=== PATIENT | female | born 1985 | race Caucasian/White ===

== ENCOUNTER 2020-05-14 11:40 | Emergency (ER) | payer MEDICAID, SELFPAY ==
[2020-05-14 11:41] VITALS: BP 103/66; PULSE 78; RESP 18; TEMP 36.2; O2SAT 98; BMI 27.3
--- NOTE | 2020-05-14 11:44 | CT_ITS ---
STUDY: CT ABDOMEN AND PELVIS WITHOUT CONTRAST REASON FOR EXAM: Female, 34 years old. Kidney Stone. One-week history of left flank pain and urinary tract infection. RADIATION DOSAGE (If Supplied By Facility): CTDIvol = ( 8.87 ) mGy, DLP = ( 447.60 ) mGycm TECHNIQUE: Transaxial images were obtained from the dome of the diaphragm to the symphysis pubis without oral contrast, and without intravenous contrast. Sagittal and coronal images were reconstructed. Individualized dose optimization techniques were used for this CT. COMPARISON: None. FINDINGS: Minimal degree of increased linear markings at the lung bases suggestive of linear atelectasis. Minimal thickening of the right side of the pericardium. Normal liver. Normal gallbladder and extrahepatic biliary system. Normal spleen. Normal pancreas. Normal bilateral adrenal glands. Normal right kidney. Mild degree of left hydronephrosis and hydroureter due to a 4.4 mm calculus at the left ureteral vesicle junction. Normal visualized stomach. Normal small intestine. Normal colon. The appendix is visualized and appears normal. Normal abdominal aorta. Normal inferior vena cava. Normal retroperitoneum. Normal urinary bladder. IUD is seen within the endometrium. The uterus is retroverted. There is a small umbilical hernia containing fat. Normal osseous structures. CT/Abdomen/Pelvis without Cont IMPRESSION: Mild degree of left hydronephrosis and hydroureter due to a 4.4 mm calculus at the left ureteral vesicle junction. Electronically Signed: Daniel Bernstein MD at 12:50 EDT , Service support ,
[2020-05-14] MEDS: Ondansetron 4 MG/2 ML Vial IV (11:54)
[2020-05-14] MEDS: 0.9% Normal Saline 1,000 ML 250 ML IV (11:55)
[2020-05-14] MEDS: Morphine 4 MG/ML Syringe IV (11:55)
--- NOTE | 2020-05-14 11:56 | ED.VISSUMM ---
- ER Visit Summary Date of Service: 05/14/20 Chief Complaint: Left flank pain History of Present Illness: The patient is a 34 F with no primary care physician. Patient reports she has had dysuria and frequency for approximately 1 week. However, this morning she had the abrupt onset of a left flank pain that she describes as a sharp, aching pain that was 10 out of 10 in severity at worst and currently. Nothing makes this better or worse. She is been nauseated and vomited once with it. No blood in her emesis. No diarrhea. Her last bowel movement was today. No melena or hematochezia. She has a Mirena in place. Physical Examination: Vitals: Stable. Afebrile. General: Well-nourished and well-developed. Head: Normocephalic atraumatic. Neck: Supple, no lymphadenopathy. No JVD. Nontender. Cardiovascular: Regular rate and rhythm. No murmurs. Respiratory: No respiratory distress. Clear to auscultation bilaterally. Abdominal: Soft, nontender, nondistended, normal bowel sounds. No guarding, rebound, or peritoneal signs. Back: Mild left CVA tenderness. Extremities: Nontender, no edema. Skin: Normal color, no rash. Neurologic: Alert and oriented ?3. Cranial nerves II through XII are intact. Normal strength and sensation. Psych: Normal affect. Test Results: Analysis shows 25-50 red blood cells and occult blood. test is negative. Clinical Impression(s) from Imaging Studies Abdomen/Pelvis CT 05/14/20 11:44 IMPRESSION: Mild degree of left hydronephrosis and hydroureter due to a 4.4 mm calculus at the left ureteral vesicle junction. Electronically Signed: Daniel Bernstein MD at 12:50 EDT , Service support , Emergency Department Course and Treatment: Patient had an IV placed. She was given morphine and Zofran IV. She is resting more comfortably. Patient was given a dose of Toradol IV and Flomax p.o. Treatment Plan: Patient will be discharged with naproxen and Zofran. She does not want opiate-based medications at home. She reports that she has to work tomorrow and asked for something to help pass this more quickly. Because of this she is given a prescription for Flomax as well. Instructed to follow-up with Dr. Thorpe in 1 week if not improving. Return to the emergency department for any worsening symptoms. Disposition: To home in improved and stable condition. Impression: 1. Left ureterolithiasis. This note was generated with [employer] dictation software. It may contain incorrect words, spelling, and punctuation that were not noted in review of the chart prior to signing ED Disposition - Plan for ED Patient: Instructions: ED Kidney Stone w/ Colic Prescriptions: Tamsulosin HCl [Flomax] 0.4 mg PO DAILY #7 capsule Prescription Printed Naproxen [Naprosyn] 500 mg PO BID #14 tablet Prescription Printed Oxycodone HCl/Acetaminophen [Percocet 5/325] 1 tablet PO Q6H PRN PRN 3 Days #12 tab PRN Reason: Pain Prescription Printed Ondansetron [Zofran Odt] 4 mg PO Q8H PRN PRN #10 tablet PRN Reason: Nausea Prescription Printed Referrals: Roberto Thorpe MD [STAFF PHYSICIAN] - 1 Week if not improving
[2020-05-14 12:06] LABS: Color, Urine Yellow (Yellow); Glucose, Dipstick Normal (Normal); Ketone-Dipstick Negative (Negative); Leukocyte Esterase-Dipstick 25 /ul (Negative); Nitrite-Dipstick Negative (Negative); Occult Blood-Urine 250 /ul (Negative); Protein-Dipstick Negative (Negative); Specific Gravity, Urine 1.015 (1.002-1.030); Urine Bilirubin Dipstick Negative (Negative); Urine Clarity Sl. Cloudy (Clear); Urine Urobilinogen Normal (Normal)
[2020-05-14 12:14] LABS: Internal QC Validated? YES +Cl - CLEAR BKGD; Pregnancy, Serum, hCG Quali. NEGATIVE Negative
[2020-05-14 12:14] LABS: Bacteria 2+ /hpf (None Seen); Mucous, Urine 2+ /hpf (<or=2+); Red Blood Cells-Urine 25-50 SEEN /hpf (0-5); Squamous Epithelial Cells - UA 0-5 SEEN /hpf (5-10); White Blood Cells 0-5 SEEN /hpf (0-5)
[2020-05-14] MEDS: Ketorolac 15 MG/ML Vial IV (13:38)
[2020-05-14] MEDS: Tamsulosin HCl 0.4 MG Capsule PO (13:46)
== END 2020-05-14 13:49 | disposition home or self-care (01) ==
PROVIDERS: Emergency Provider Emergency Medicine
DX: N13.2 Hydronephrosis with renal and ureteral calculous obstruction (principal)
CPT/HCPCS: 74176; 81001; 84703; 96361; 96374; 96375; 99284; J7030; A4216; J2405

== ENCOUNTER 2020-05-16 13:17 | Emergency (ER) | payer MEDICAID, SELFPAY ==
[2020-05-16 13:19] VITALS: BP 105/66; PULSE 95; RESP 16; TEMP 36.3; O2SAT 100; BMI 26.6
[2020-05-16 13:36] LABS: Mucous, Urine 0 SEEN /hpf (<or=2+)
[2020-05-16 13:51] LABS: Color, Urine Yellow (Yellow); Glucose, Dipstick Normal (Normal); Ketone-Dipstick Negative (Negative); Leukocyte Esterase-Dipstick Negative /ul (Negative); Nitrite-Dipstick Negative (Negative); Occult Blood-Urine 25 /ul (Negative); Protein-Dipstick Negative (Negative); Urine Bilirubin Dipstick Negative (Negative); Urine Clarity Clear (Clear); Urine Urobilinogen Normal (Normal); Urine pH 6.5 (5.0 - 8.0)
[2020-05-16 14:01] LABS: Bacteria 1+ /hpf (None Seen); Red Blood Cells-Urine 0-5 SEEN /hpf (0-5); Squamous Epithelial Cells - UA 0-5 SEEN /hpf (5-10); White Blood Cells 0-5 SEEN /hpf (0-5)
--- NOTE | 2020-05-16 14:11 | ED.VIS.GEN ---
History of Present Illness Chief Complaint: Complaint Informant: Patient Narrative: Patient is a 34-year-old previously healthy female who presents to the emergency department for dysuria, suprapubic pain. She was diagnosed with a kidney stone 2 days prior. She was having left-sided flank pain but this is since improved. She is currently rating her suprapubic discomfort as a 4 out of 10. She has been taking Naprosyn, Percocet and Flomax at home. She has not followed up with urology at this point. She denies any fevers or chills. No nausea vomiting. Denies any vaginal bleeding or discharge. She denies any chance of being and just had a negative test. No change in bowel movements. Patient feels a lot of pressure and feels like she has a urinary tract infection. No hematuria. She states she is urinating very frequently. Past Medical History - Allergies and Home Meds Allergies/Adverse Reactions: Allergies SHRIMP Allergy (Mild, Uncoded 05/16/20 13:18) Swelling, upset stomache Primary Care Physician: Roberto Thorpe MD [STAFF PHYSICIAN] - 1 Day Care Physician,No Primary [Primary Care Provider] - Prior records reviewed: Yes Past Medical History: None Surgical History: no surgical history Smoking Status: Current every day smoker Review of Systems All systems negative except as indicated General: Denies: Chills, Fever, Sweats Eyes: Denies: Visual changes - bilaterally, Diplopia ENT: Denies: Rhinorrhea, Sore throat Cardiovascular: Denies: Chest pain, Palpitations Respiratory: Denies: Dyspnea, Cough, Dyspnea on exertion Gastrointestinal: Reports: Abdominal pain. Denies: Nausea, Vomiting, Diarrhea, Melena, Hematochezia Genitourinary: Reports: Dysuria, Frequency. Denies: Hematuria Musculoskeletal: Denies: Back pain, Extremity Pain Skin: Denies: Rash, Wounds Neurological: Denies: Headache, Weakness, Numbness Physical Exam Vital Signs/Narrative: Vital Signs Temp Pulse Resp BP Pulse Ox 05/16/20 13:19 97.3 F L 95 16 105/66 100 Inital Vital Signs reviewed: Yes General: Well nourished, Well developed, No Acute Distress Head: Normocephalic, Atraumatic Eyes: Perrl, EOMI ENT: Moist mucous membranes, No rhinorrhea Neck: Supple, Nontender Cardiovascular: Regular rate, Regular rhythm, No murmurs Respiratory: No distress, CTA bilaterally, Chest nontender Abdomen: Soft, Nondistended, Normal bowel sounds, Tender - Mild tenderness to deep palpation over suprapubic region. No pain at McBurney's point. No rebound or guarding. Back: Nontender, Normal Inspection. Negative for: CVA tenderness Extremities: Nontender, No edema Skin: Normal color, No rash Neurological: Alert, Oriented x3, Cranial nerves II-XII grossly intact, Normal Strength, Normal Sensation Psychological: Normal affect, Normal Mood Diagnostic/Tx/Re-eval - Medical Decision Making Patient presents to the emergency department for urinary symptoms associated with a kidney stone starting 2 days ago. On arrival to the emergency department she is in no acute distress. Vital signs within normal limits. She has a benign abdominal exam. She only has mild tenderness. No peritoneal signs. Since her pain is actually been improving I do not feel repeat CT is necessary at this time. Will check a urinalysis to evaluate for evidence of infection. Urine did have 1+ bacteria but no significant white blood cell count, nitrites or leukocyte esterase. The fact she does have a known kidney stone we will treat this because of her symptoms. Urine will be sent for culture as well. Patient otherwise resting comfortably is nontoxic appearing. She is benign exam. Do feel she is a candidate for outpatient treatment. We will also place on Pyridium. She is going to follow-up with urology tomorrow. Return precautions are reviewed with her including develop any systemic symptoms or worsening pain. She understands and is agreeable with this plan. ED Disposition - Plan for ED Patient: Disposition: Home or Assisted Living Diagnosis: Kidney stone, UTI (urinary tract infection), Dysuria Instructions: ED Kidney Stone w/ Colic Prescriptions: Cephalexin [Keflex] 500 mg PO Q12 #14 capsule Transmission Status: Received by [facility] Phenazopyridine HCl [Pyridium] 200 mg PO BID PRN PRN #10 tablet PRN Reason: Pain Transmission Status: Received by [facility] Referrals: Care Physician,No Primary [Primary Care Provider] - Roberto Thorpe MD [STAFF PHYSICIAN] - 1 Day
== END 2020-05-16 14:49 | disposition home or self-care (01) ==
PROVIDERS: Emergency Provider Emergency Medicine
DX: N20.0 Calculus of kidney (principal); N39.0 Urinary tract infection, site not specified; F17.200 Nicotine dependence, unspecified, uncomplicated
CPT/HCPCS: 81001; 87086; 87088; 87186; 99282

== ENCOUNTER 2020-06-02 20:25 | Emergency (ER) | payer MEDICAID, SELFPAY ==
[2020-06-02 20:25] VITALS: BP 100/80; PULSE 63; RESP 16; TEMP 36.6; O2SAT 95
[2020-06-02 20:26] VITALS: BP 106/70; PULSE 69; RESP 18; TEMP 36; BMI 28.0
[2020-06-02 20:28] VITALS: BP 100/80; PULSE 63; RESP 16; TEMP 36.6; O2SAT 95
--- NOTE | 2020-06-02 20:47 | CT_ITS ---
STUDY: CT ABDOMEN AND PELVIS WITHOUT CONTRAST REASON FOR EXAM: Female, 34 years old. Kidney Stone RADIATION DOSAGE (If Supplied By Facility): CTDIvol = ( 10.27 ) mGy, DLP = ( 546.40 ) mGycm TECHNIQUE: Transaxial images were obtained from the dome of the diaphragm to the symphysis pubis without oral contrast, and without intravenous contrast. Sagittal and coronal images were reconstructed. Individualized dose optimization techniques were used for this CT. COMPARISON: 05/14/2020 FINDINGS: There is minor atelectasis within the dependent portion of the lungs.. The visualized portions of the heart are within normal limits. Normal liver. Normal gallbladder and extrahepatic biliary system. Normal spleen. Normal pancreas. Normal bilateral adrenal glands. Normal right kidney. Normal left kidney. There is a small nonobstructing calculus in the distal left ureter at the ureterovesical junction Normal visualized stomach. Normal small intestine. Normal colon. The appendix is visualized and appears normal. Normal abdominal aorta. Normal inferior vena cava. Normal retroperitoneum. Normal urinary bladder. IUD noted within the endometrial canal of the uterus at the level of the uterine fundus Normal abdominal wall. 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 Electronically Signed: Juan Pablo Thomas MD at 21:54 EDT , Service support ,
[2020-06-02 21:01] LABS: Mucous, Urine 0 SEEN /hpf (<or=2+); Red Blood Cells-Urine 0 SEEN /hpf (0-5); Squamous Epithelial Cells - UA 0 SEEN /hpf (5-10); White Blood Cells 0 SEEN /hpf (0-5)
[2020-06-02 21:02] LABS: Basophil# 0.05 X10^3/uL; Basophil% 0.7 % (0-1); Eosinophil# 0.57 X10^3/uL; Eosinophils% 7.5 % (0-5); Hematocrit 40.7 % (37-47); Hemoglobin 13.2 g/dL (12.0-15.0); Lymphocyte % 31.5 % (19-41); Mean Corp Hgb Conc 32.4 g/dL (32-36); Mean Corpuscular Hgb 31.3 pg (27.0-32.0); Mean Corpuscular Volume 96.4 fL (81-99); Mean Platelet Vol. 9.3 fl (6.2-12.0); Monocyte# 0.63 X10^3/uL; Monocyte% 8.3 % (0-10); NRBC Flagged by Analyzer 0 % (0-5); Neutrophil # 3.96 X10^3/uL (2.7-7.7); Neutrophil % 51.7 % (47-70); Platelet Count 308 K/mm3 (150-450); RBC Distribution Width CV 11.9 % (11.6-14.6); RBC Distribution Width SD 42.1 fl (35.1-43.9); Red Blood Count 4.22 M/mm3 (4.2-5.4); White Blood Count 7.6 K/mm3 (4.4-11.0)
[2020-06-02 21:03] LABS: Color, Urine Yellow (Yellow); Glucose, Dipstick Normal (Normal); Ketone-Dipstick Negative (Negative); Leukocyte Esterase-Dipstick Negative /ul (Negative); Nitrite-Dipstick Negative (Negative); Occult Blood-Urine 250 /ul (Negative); Protein-Dipstick Negative (Negative); Specific Gravity, Urine 1.015 (1.002-1.030); Urine Bilirubin Dipstick Negative (Negative); Urine Clarity Clear (Clear); Urine Urobilinogen Normal (Normal)
[2020-06-02 21:10] LABS: Internal QC Validated? YES +Cl - CLEAR BKGD; Pregnancy, Serum, hCG Quali. NEGATIVE Negative
[2020-06-02] MEDS: 0.9% Normal Saline 1,000 ML 250 ML IV (21:10)
--- NOTE | 2020-06-02 21:10 | ED.VIS.GEN ---
History of Present Illness Chief Complaint: Complaint Informant: Patient Onset: Weeks Maximum Severity: Mild Narrative: Patient presents with left flank pain that she is had on and off for weeks, she was seen in the emergency department number of weeks ago diagnosed with kidney stone on CT was told to follow-up with urology apparently she did not follow-up her symptoms apparently reoccurred she was seen again started on antibiotics with follow-up with urology she did not follow-up she indicates she felt better than today she had recurrence of her symptoms she went to urgent care center told her to come here, She is having the similar symptoms no fever no cough she reports some urinary frequency left flank pain, she indicates she has a Mirena ring this been in place for 4 years no problems or complications with that she wants to make absolutely sure this is the exact same process that it was the other day when she was diagnosed with kidney stone, she presents with the same symptoms Past Medical History - Allergies and Home Meds Allergies/Adverse Reactions: Allergies SHRIMP Allergy (Mild, Uncoded 06/02/20 20:26) Swelling, upset stomache Primary Care Physician: Care Physician,No Primary [Primary Care Provider] - Past Medical History: - Surgical History: no surgical history Smoking Status: Current every day smoker Review of Systems ROS: - Clues as above General: Denies: Chills, Fever, Sweats Eyes: Denies: Visual changes - bilaterally, Diplopia ENT: Denies: Rhinorrhea, Sore throat Cardiovascular: Denies: Chest pain, Palpitations Respiratory: Denies: Dyspnea, Cough, Dyspnea on exertion Gastrointestinal: Denies: Abdominal pain, Nausea, Vomiting, Diarrhea, Melena, Hematochezia Genitourinary: Denies: Dysuria, Hematuria, Frequency Musculoskeletal: Reports: Back pain. Denies: Extremity Pain Skin: Denies: Rash, Wounds Neurological: Denies: Headache, Weakness, Numbness Physical Exam Vital Signs/Narrative: Vital Signs Temp Pulse Resp BP Pulse Ox 06/02/20 20:28 98 F 63 16 100/80 95 06/02/20 20:26 96.8 F L 69 18 106/70 06/02/20 20:25 98 F 63 16 100/80 95 General: Well nourished, Well developed, No Acute Distress Head: Normocephalic, Atraumatic Eyes: Perrl, EOMI ENT: Moist mucous membranes, No rhinorrhea Neck: Supple, Nontender Cardiovascular: Regular rate, Regular rhythm, No murmurs Respiratory: No distress, CTA bilaterally, Chest nontender Abdomen: Soft, Nontender, Nondistended, Normal bowel sounds, - - Very mild pain to the left flank the abdomen soft nontender the rest of exams unremarkable Back: Nontender, Normal Inspection Extremities: Nontender, No edema Skin: Normal color, No rash Neurological: Alert, Oriented x3, Cranial nerves II-XII grossly intact, Normal Strength, Normal Sensation Psychological: Normal affect, Normal Mood Diagnostic/Tx/Re-eval - Medical Decision Making I explained to the patient given that she is having the almost similar symptomatology this is likely due to the fact has not passed a kidney stone she concurs with that assessment I explained to her that then repeating CTs etc. are generally not indicated but she wants that done as she is instead insists on making completely sure that this is the same process I explained to the concept of repeat imaging radiation exposure etc. she understands and wants a CT, she undergo ED evaluation with CT CT scan shows left distal ureter UVJ stone obstructing no other acute abnormalities ED evaluation labs generally unremarkable see those reports, explained the above to the patient at this time I explained her she has had this condition for over 3 weeks she has not follow-up with urology I explained it is critically important that she follows up with urology she'll be started on [place] Naprosyn Flomax and return for symptoms Home stable Final impression left UVJ obstructing kidney stone ED Disposition - Plan for ED Patient: Diagnosis: Left UVJ kidney stone Instructions: ED Kidney Stone w/ Colic Prescriptions: Tamsulosin HCl [Flomax] 0.4 mg PO DAILY #7 capsule Prescription Printed Naproxen [Naprosyn] 500 mg PO BID PRN #20 tablet Prescription Printed Hydrocodone Bitart/Apap 5-325 [[place] 5MG-325MG] 1 tablet PO Q4H PRN PRN 2 Days #10 tab PRN Reason: Pain Prescription Printed Referrals: Care Physician,No Primary [Primary Care Provider] - Roberto Thorpe MD [STAFF PHYSICIAN] -
[2020-06-02 21:12] LABS: Bacteria 2+ /hpf (None Seen)
[2020-06-02] MEDS: morphine 8 MG/ML Syringe IV (21:13)
[2020-06-02] MEDS: Ondansetron 4 MG/2 ML Vial IV (21:14)
[2020-06-02] MEDS: Ketorolac 30 MG/ML Syringe IV (21:14)
[2020-06-02 21:15] LABS: Anion Gap 2 (5-15); BUN 14 mg/dL (7-18); Calcium,Total 8.9 mg/dL (8.5-10.1); Chloride 109 mmol/L (98-107); Creatinine, Serum 0.67 mg/dL (0.55-1.02); EST Glomerular Filtration Rate 108 mL/min (>60); Est Glom Filt Rate - Afr Amer 131 mL/min (>60); Estimated Creatinine Clearance 116.14 ml/min; Glucose 90 mg/dL (74-106); Potassium 3.8 mmol/L (3.5-5.1); Sodium Level 140 mmol/L (136-145)
[2020-06-02 21:28] VITALS: BP 107/74; PULSE 74; RESP 15; TEMP 36.8; O2SAT 98
[2020-06-02 22:00] VITALS: BP 104/70; PULSE 78; RESP 16; TEMP 36.7; O2SAT 97
[2020-06-02] MEDS: HYDROcodone Bitartrate/Apap 5/325 Tablet PO (22:52)
[2020-06-02 22:57] VITALS: BP 110/70; PULSE 78; RESP 16; O2SAT 98
== END 2020-06-02 22:58 | disposition home or self-care (01) ==
LOC: ED 20:57
PROVIDERS: Emergency Provider Emergency Medicine
DX: N20.1 Calculus of ureter (principal); F17.200 Nicotine dependence, unspecified, uncomplicated
CPT/HCPCS: 74176; 80048; 81001; 84703; 85025; 96361; 96374; 96375; 99284; J7030; A4216; J2405

== ENCOUNTER 2020-06-08 10:29 | Day surgery (SDC) | payer MEDICAID, SELFPAY ==
[2020-06-08 11:00] VITALS: BP 95/48; PULSE 76; RESP 14; TEMP 35.8; O2SAT 98; BMI 28.0
[2020-06-08 11:02] LABS: Internal QC Validated? YES +Cl - CLEAR BKGD; Pregnancy, Urine Negative Negative
[2020-06-08] MEDS: Lactated Ringers 1,000 ML 100 ML IV (11:38)
[2020-06-08] MEDS: Ketorolac 30 MG/ML Syringe IV (12:36)
[2020-06-08] MEDS: Cefazolin 2 GM in 0.9% Normal Saline 100 ML IV (14:05)
--- NOTE | 2020-06-08 14:41 | PCM.OPRPT ---
Problem List (1) Left ureteral calculus Status: Acute Report of Operation Date of Procedure: 06/08/20 Pre-Operative Diagnosis: left ureteral calculus Post-Operative Diagnosis: same Surgery/Procedure Performed:: Cystoscopy, left retrograde pyelogram, left ureteroscopy, laser lithotripsy, stone basket extraction, left ureteral stent insertion Type of Anesthesia:: General Specimen's removed: Stone fragments Description of Procedure: Patient is a 34-year-old female with left flank pain identified as having a left ureteral calculus on CT scan who now presents for definitive intervention. Informed consent was obtained. She was taken to the operating room and placed on the operating room table. Anesthesia monitored the head, neck, airway, IV access and vital signs throughout the case. Once anesthesia was appropriately administered the patient was placed into dorsal lithotomy position was prepped and draped in usual sterile fashion. A cystourethroscopy was performed through the urethra under direct visualization. The bladder mucosa and urethral mucosa were normal with no evidence of growth, erythema or ulceration. The left ureteral orifice was identified and intubated with a Pollack catheter. A retrograde pyelogram was performed under fluoroscopic visualization revealing the calculus in the distal left ureter. A 0.035 Glidewire was then passed into the renal pelvis through the left ureter without difficulty. A semirigid ureteroscope was then used to intubate the left ureter with the help of a 0.025 Glidewire. The stone was identified and broken into small fragments using the holmium laser 270 ?m fiber. Some of the larger fragments were grasped with a basket and removed, and sent for evaluation. The smaller pieces passed easily into the urinary bladder. Using the safety wire, a 6 English 26 cm double-J stent was then passed over the Glidewire with good curling in the renal pelvis and the urinary bladder. The patient's bladder was emptied and the case was terminated. The patient tolerated the procedure well without complication and she was taken to the recovery room in good condition. Grafts/Implants Used: 6 x 26 JJ stent - Complications None - Admit VTE Documentation VTE Present on Admission: Yes VTE Mechan Device Prophylaxis: SCD's VTE Pharm Prophylaxis ordered?: No Reason prophylaxis not ordered:: Treatment Not Indicated
--- NOTE | 2020-06-08 14:45 | PCM.DC.URO ---
Discharge Diet: No Restrictions Discharge Activity: May not drive while taking narcotic pain medications. May resume sexual activity in: No Restrictions Call your doctor if you observe: Fever of 101 or Higher, Inability to urinate, Inability to have a bowel movement, Calf discomfort, Uncontrolled pain Allergies/Adverse Reactions: Allergies hydrocodone [From [place]] Adverse Reaction (Verified 06/07/20 09:02) Nausea SHRIMP Allergy (Mild, Uncoded 06/07/20 09:01) Swelling, upset stomache Medications to take at Discharge RX: Hydrocodone Bitart/Apap 5-325 [[place] 5/325] 1 tablet PO Q6H PRN PRN 06/07/20 RX: Naproxen [Naprosyn] 500 mg PO BID PRN PRN 06/07/20 Cephalexin [Keflex] 500 mg PO Q12 3 Days #6 capsule 06/08/20 Phenazopyridine HCl [Pyridium] 200 mg PO TID PRN PRN 7 Days #30 tablet 06/08/20 The following prescriptions were given: Cephalexin [Keflex] 500 mg PO Q12 3 Days #6 capsule Transmission Status: Pending to [facility] Phenazopyridine HCl [Pyridium] 200 mg PO TID PRN PRN 7 Days #30 tablet PRN Reason: Bladder Spasms Transmission Status: Pending to [facility] Primary Care Physician: Care Physician,No Primary [Primary Care Provider] - Test Results: Test results from this visit will be discussed in further detail at your follow-up appointment, if applicable. Please Follow Up With: Karina Rivera MD When: call office for appt for stent removal Proposed Discharge Date: 06/08/20
[2020-06-08 14:54] VITALS: BP 95/48; BP 98/84; PULSE 71; RESP 16; TEMP 36.8; O2SAT 99
--- NOTE | 2020-06-08 14:58 | CALC_PTH ---
PATIENT: ROSE MARIE MORSE LOC: [facility] [place] U#:[id number] AGE/SX: 34/F ROOM: RE06/08/[address]: Dr. Karina Rivera MD : 1985 BED: DIS: 06/08/2020 SPEC #: [id number] RECD: 06/09/20 12:00 STATUS: ULISSES SHEMAR #: [id number] GIULIANA: 06/08/20 14:[address]: Karina Rivera DEPT: SURGICAL PATHOLOGY RECD BY: Toya Magaña ENTERED: 06/10/20 08:32 SP TYPE: Calculi OTHR DR: No Primary Care Phys Tissues: CALCULI Procedures: Surgery Specimen Level I HEADER OPERATION: Not noted PRE-OP DIAGNOSIS: Kidney stone TISSUE SUBMITTED: Kidney stone for analysis GROSS DIAGNOSIS Kidney stone for analysis, removal: Unremarkable calculi (gross diagnosis only). AM:tiara 06/10/20 COMMENT The calculus is submitted in its entirety for chemical stone analysis. The results from this study will be reported separately. GROSS DESCRIPTION Received without fixative labeled with the patient's name and designated kidney stone for analysis. The specimen consists of two irregular fragments of light willis calculi measuring in aggregate 0.2 x <0.1 x <0.1 cm. The calculi are submitted in their entirety for chemical stone analysis. / AM:tiara 06/09/20 CPT: 15180
[2020-06-08 14:59] VITALS: BP 101/62; BP 95/48; PULSE 62; RESP 18; O2SAT 100
[2020-06-08 15:04] VITALS: BP 94/67; BP 95/48; PULSE 56; RESP 18; O2SAT 99
[2020-06-08 15:25] VITALS: BP 95/48; BP 97/64; PULSE 52; RESP 18; TEMP 36.4; O2SAT 100
[2020-06-08 16:12] VITALS: BP 124/91; BP 95/48; PULSE 71; RESP 16; TEMP 36.8; O2SAT 100
== END 2020-06-08 16:14 | disposition home or self-care (01) ==
LOC: SDC 10:30 → AC 10:31
PROVIDERS: Anesthesiology; Referring Provider Urology; Visit Provider Urology
PROC: 0TJ98ZZ Inspection of Ureter, Via Natural or Artificial Opening Endoscopic (ICD-10-PCS; CPT 52352; principal; 2020-06-08 11:55)
DX: N20.1 Calculus of ureter (principal); N39.0 Urinary tract infection, site not specified; B96.20 Unspecified Escherichia coli [E. coli] as the cause of diseases classified elsewhere; F17.200 Nicotine dependence, unspecified, uncomplicated; Z20.822 Contact with and (suspected) exposure to COVID-19
CPT/HCPCS: 52356; 76000; 81025; 82360; 87426; 88300; C9803; J7120; A4216; C2617; J2405

== ENCOUNTER 2020-06-10 18:19 | Emergency (ER) | payer MEDICAID, SELFPAY ==
[2020-06-10 18:20] VITALS: BP 126/97; PULSE 82; RESP 15; TEMP 36.4; O2SAT 97; BMI 28.1
--- NOTE | 2020-06-10 18:42 | CT_ITS ---
INDICATION: Kidney Stone EXAMINATION: CT Abdomen And Pelvis W/O Contrast Injection TECHNIQUE: Helically acquired images were obtained of the abdomen and pelvis without the use of IV contrast. A radiation dose optimization technique was used for this scan. Oral contrast: None. COMPARISON: 06/02/2020 FINDINGS: Evaluation of the solid organs and vascular structures is limited without intravenous contrast. Visualized lung bases: Bibasilar atelectasis. Liver: Scattered subcentimeter hypodensities are too small characterize. Gallbladder: Unremarkable Spleen: Unremarkable Pancreas: Unremarkable Adrenal Glands: Unremarkable Kidneys: Residual punctate nonobstructing stone seen in the distal left ureter. There is mild left hydroureteronephrosis. Vasculature: Unremarkable GI Tract: Unremarkable Lymphadenopathy: None Peritoneum: There is free fluid in the pelvis extending to the left ovary. Bladder: The bladder wall is mildly thickened with surrounding fat stranding. Reproductive organs: IUD in place. Bones/Soft tissues: No suspicious osseous or soft tissue lesions. 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 CT/Abdomen/Pelvis without Cont IMPRESSION: New free fluid in the pelvis extending to the left ovary, likely from a ruptured ovarian cyst. New mild left hydroureteronephrosis with tiny 1 mm residual stone seen in the distal left ureter. The bladder wall is mildly thickened with surrounding inflammation. Correlate with urinalysis for cystitis. Electronically Signed: Cullen Miller MD at 19:56 EDT Tel , Service support ,
[2020-06-10] MEDS: Ketorolac 15 MG/ML Vial IV (18:55)
[2020-06-10] MEDS: Morphine 4 MG/ML Syringe IV ×2 (18:55→22:11)
[2020-06-10] MEDS: Ondansetron 4 MG/2 ML Vial IV (18:55)
[2020-06-10 19:08] LABS: Bacteria 0 SEEN /hpf (None Seen); Mucous, Urine 0 SEEN /hpf (<or=2+); White Blood Cells 0 SEEN /hpf (0-5)
[2020-06-10 19:14] LABS: Color, Urine Yellow (Yellow); Glucose, Dipstick Normal (Normal); Ketone-Dipstick 50 mg/dl (Negative); Leukocyte Esterase-Dipstick 25 /ul (Negative); Nitrite-Dipstick Negative (Negative); Occult Blood-Urine 250 /ul (Negative); Protein-Dipstick 30 mg/dl (Negative); Urine Bilirubin Dipstick Negative (Negative); Urine Clarity Sl. Cloudy (Clear); Urine Urobilinogen Normal (Normal)
[2020-06-10 19:15] LABS: Absolute Lymphocyte Count 2.57 X10^3/uL (0.83-4.51); Absolute Neutrophil Count 8.6 X10^3/uL (2.0-7.7); Basophil# 0.07 X10^3/uL; Basophil% 0.5 % (0-1); Eosinophil# 0.41 X10^3/uL; Eosinophils% 3.2 % (0-5); Hematocrit 39.8 % (37-47); Hemoglobin 13.1 g/dL (12.0-15.0); Lymphocyte # 2.57 X10^3/ul (0.83-4.51); Lymphocyte % 20.2 % (19-41); Mean Corp Hgb Conc 32.9 g/dL (32-36); Mean Corpuscular Hgb 31.3 pg (27.0-32.0); Mean Corpuscular Volume 95.2 fL (81-99); Mean Platelet Vol. 9.6 fl (6.2-12.0); Monocyte# 1.03 X10^3/uL; Monocyte% 8.1 % (0-10); NRBC Flagged by Analyzer 0 % (0-5); Neutrophil # 8.61 X10^3/uL (2.7-7.7); Neutrophil % 67.7 % (47-70); Platelet Count 317 K/mm3 (150-450); RBC Distribution Width SD 41.5 fl (35.1-43.9); Red Blood Count 4.18 M/mm3 (4.2-5.4); White Blood Count 12.7 K/mm3 (4.4-11.0)
[2020-06-10 19:21] LABS: Red Blood Cells-Urine 25-50 SEEN /hpf (0-5); Squamous Epithelial Cells - UA 0-5 SEEN /hpf (5-10)
[2020-06-10 19:26] LABS: Anion Gap 5 (5-15); BUN 12 mg/dL (7-18); BUN/Creat Ratio 16.9 RATIO (10-20); Calcium,Total 8.7 mg/dL (8.5-10.1); Chloride 108 mmol/L (98-107); Creatinine, Serum 0.71 mg/dL (0.55-1.02); EST Glomerular Filtration Rate 100 mL/min (>60); Est Glom Filt Rate - Afr Amer 121 mL/min (>60); Glucose 89 mg/dL (74-106); Potassium 3.7 mmol/L (3.5-5.1); Sodium Level 139 mmol/L (136-145)
--- NOTE | 2020-06-10 20:25 | US_ITS ---
PROCEDURE: ULTRASOUND OF THE FEMALE PELVIS - COMPLETE REASON FOR EXAM: Female, 34 years old. Left lower quadrant pain TECHNIQUE: Transabdominal and Transvaginal TECHNICAL QUALITY: Adequate. COMPARISON: CT of abdomen and pelvis dated JUNE 10, 2020 FINDINGS: The uterus is retroverted and is in a midline position. The uterus measures 7.8 x 6.6 x 4.4 cm. There is no demonstrated myometrial mass. The endometrium measures 3 mm in thickness, and is hyperechoic. IUD is fundal in location and in good position. There is no demonstrated endometrial mass. There is a Nabothian cyst of the cervix. The right ovary is visualized. The right ovary measures 3.0 x 2.5 x 2.1 cm cm. There is no right ovarian cyst or ovarian mass. There is no visualized right adnexal mass or complex lesion. The left ovary is visualized. The left ovary measures 4.1 x 2.6 x 2.8 cm cm. Degenerated left ovarian follicular cyst measures 1.8 cm. There is no visualized left adnexal mass or complex lesion. Normal color vascular flow and Doppler signal is demonstrated in both ovaries. There is a small amount of fluid in the cul-de-sac. Small amount of debris seen in the visualized aspects of the bladder. US/Transvaginal Non- IMPRESSION: 1. 1.8 cm degenerated left ovarian cyst 2. Small amount of free fluid in the cul-de-sac 3. Small amount of debris seen in the visualized aspects of the bladder. Electronically Signed: Jose Burrell MD at 21:35 EDT , Service support ,
--- NOTE | 2020-06-10 20:36 | ED.DCSUM_ITS ---
History of Present Illness Chief Complaint: Flank Pain Informant: Patient Narrative: 34-year-old female with history of renal calculi on the left presenting with left flank pain. She states that she had a stent placed and the stone was removed by Dr. Nelson. she states that she did have some improvement of her pain but now is having worsening left flank pain. She was seen again today and had the stent removed. She has worsening pain and was sent to the ED for evaluation. Patient denies any fever or chills. She does have nausea. She does also have dysuria. She is complaining of left flank pain which is worsening. - Past Medical History (1) Left ureteral calculus Status: Chronic (2) Pleurisy Status: Chronic Past Medical History - Allergies and Home Meds Allergies/Adverse Reactions: Allergies hydrocodone [From [place]] Adverse Reaction (Verified 06/10/20 18:22) Nausea SHRIMP Allergy (Mild, Uncoded 06/10/20 18:22) Swelling, upset stomache Primary Care Physician: Care Physician,No Primary [Primary Care Provider] - Prior records reviewed: Yes Past Medical History: - - Reviewed in problem list Surgical History: no surgical history Lives: Spouse/ Significant Other Smoking Status: Current every day smoker Alcohol: None Drugs: None Review of Systems General: Denies: Chills, Fever, Sweats Eyes: Denies: Visual changes - bilaterally, Diplopia ENT: Denies: Rhinorrhea, Sore throat Cardiovascular: Denies: Chest pain, Palpitations Respiratory: Denies: Dyspnea, Cough, Dyspnea on exertion Gastrointestinal: Reports: Abdominal pain - Left lower abdominal pain, Nausea. Denies: Vomiting, Diarrhea Genitourinary: Reports: Dysuria. Denies: Frequency Musculoskeletal: Reports: Back pain - Left flank pain. Denies: Extremity Pain Skin: Denies: Rash, Wounds Neurological: Denies: Headache, Weakness, Numbness Psych: Denies: Depression, Anxiety, Suicidal thoughts, Suicidal ideations, -, - Physical Exam Vital Signs/Narrative: Vital Signs Temp Pulse Resp BP Pulse Ox 06/10/20 18:20 97.6 F L 82 15 126/97 H 97 General: Well nourished, Acute Distress - Appears to be in pain holding her left flank Head: Normocephalic, Atraumatic Eyes: Perrl, EOMI ENT: Moist mucous membranes, No rhinorrhea Cardiovascular: Regular rate, Regular rhythm Respiratory: No distress, CTA bilaterally Abdomen: Soft, Nondistended, Tender - Left flank and left lower quadrant. Back: CVA tenderness - Left. Negative for: Spinal tenderness Extremities: Nontender, No edema Skin: Normal color, No rash, Diaphoresis. Negative for: Cyanosis Neurological: Alert, Oriented x3, Cranial nerves II-XII grossly intact Psychological: Normal affect, Tearful Diagnostic/Tx/Re-eval Clinical Impression(s) from Imaging Studies Abdomen/Pelvis CT 06/10/20 18:42 IMPRESSION: New free fluid in the pelvis extending to the left ovary, likely from a ruptured ovarian cyst. New mild left hydroureteronephrosis with tiny 1 mm residual stone seen in the distal left ureter. The bladder wall is mildly thickened with surrounding inflammation. Correlate with urinalysis for cystitis. Electronically Signed: Cullen Miller MD at 19:56 EDT Tel , Service support , Laboratory Data 06/10/20 06/10/20 06/10/20 18:58 18:58 Unknown WBC 12.7 H RBC 4.18 L Hgb 13.1 Hct 39.8 MCV 95.2 MCH 31.3 MCHC 32.9 RDW Std Deviation 41.5 RDW Coeff of Dimas 12.0 Plt Count 317 MPV 9.6 Immature Gran % (Auto) 0.300 Neut % (Auto) 67.7 Lymph % (Auto) 20.2 Richardson % (Auto) 8.1 Eos % (Auto) 3.2 Baso % (Auto) 0.5 Absolute Neuts (auto) 8.6 H Absolute Lymphs (auto) 2.57 Nucleated RBC % 0 Sodium 139 Potassium 3.7 Chloride 108 H Carbon Dioxide 26.0 Anion Gap 5 BUN 12 Creatinine 0.71 Estim Creat Clear Calc 109.60 Est GFR (MDRD) Af Amer 121 Est GFR (MDRD) Non-Af 100 BUN/Creatinine Ratio 16.9 Glucose 89 Calcium 8.7 Urine Color Yellow Urine Clarity Sl. Cloudy Urine pH 8.0 Ur Specific [place] 1.010 Urine Protein 30 H Urine Glucose (UA) Normal Urine Ketones 50 H Urine Occult Blood 250 H Urine Nitrite Negative Urine Bilirubin Negative Urine Urobilinogen Normal Ur Leukocyte Esterase 25 H Urine RBC 25-50 SEEN Urine WBC 0 SEEN Ur Squamous Epith Cells 0-5 SEEN Urine Bacteria 0 SEEN Urine Mucus 0 SEEN - Medical Decision Making Patient seen and evaluated on arrival for left flank pain. She has history of renal calculi stent placement and removal. She is given Toradol, morphine, Zofran and has improvement of her pain. Repeat lab work shows a slight leukocytosis but otherwise her H&H stable. Renal function electrolytes are normal. Patient had negative test 2 days ago. Urinalysis has hematuria but no infection. CT of the abdomen pelvis without contrast shows residual 1 mm stone in the distal ureter with some left hydronephrosis. The bladder also appears inflamed. This is likely from her stent given that she does not have a UTI or obstructing stone. Patient also has findings on her CT that show fluid in the pelvis extending to the left ovary presumed to be ruptured ovarian cyst. After discussing with the patient she would like to have a transvaginal ultrasound. This was ordered. Transvaginal ultrasound shows a 1.8 cm degenerated left ovarian cyst as well as some free fluid in the cul-de-sac. There is no ovarian torsion. There appears to be some debris in th e bladder. Patient was discussed with urology and she wants the patient to be started on Flomax and follow-up in the office tomorrow. This was discussed with the patient. She was given the option to stay for pain control and wishes to go home. She states she has Percocet at home. Patient given precautions. Impression: 1. Left ureteral stone nonobstructive 2. Left ovarian cyst ED Disposition - Plan for ED Patient: Disposition: Home or Assisted Living Instructions: ED Ovarian Cyst, ED Kidney Stone w/ Colic Prescriptions: Tamsulosin HCl [Flomax] 0.4 mg PO DAILY #7 capsule Transmission Status: Received by [email or web address][id number] Referrals: Care Physician,No Primary [Primary Care Provider] -
[2020-06-10 22:01] VITALS: BP 93/62; PULSE 65; RESP 16; O2SAT 96
[2020-06-10] MEDS: Tamsulosin HCl 0.4 MG Capsule PO (22:12)
[2020-06-10 22:18] VITALS: BP 103/71
== END 2020-06-10 22:18 | disposition home or self-care (01) ==
PROVIDERS: Emergency Provider Student in an Organized Health Care Education/Training Program
DX: N13.2 Hydronephrosis with renal and ureteral calculous obstruction (principal); N83.202 Unspecified ovarian cyst, left side; F17.200 Nicotine dependence, unspecified, uncomplicated; Z87.442 Personal history of urinary calculi
CPT/HCPCS: 74176; 76830; 80048; 81001; 85025; 93976; 96374; 96375; 96376; 99282; A4216; J2405

== ENCOUNTER 2021-09-15 14:24 | Emergency (ER) | payer MEDICAID, SELFPAY ==
[2021-09-15 14:25] VITALS: BP 108/69; PULSE 76; RESP 16; TEMP 36.6; O2SAT 100; BMI 28.2
--- NOTE | 2021-09-15 15:43 | EKG12_ITS ---
Test Reason : dizziness Blood Pressure : / mmHG Vent. Rate : 065 BPM Atrial Rate : 065 BPM P-R Int : 138 ms QRS Dur : 094 ms QT Int : 412 ms P-R-T Axes : 053 058 057 degrees QTc Int : 428 ms Normal sinus rhythm with sinus arrhythmia Normal ECG Confirmed by ACE CARBAJAL, MEAGHAN ([id number]), visual effects editor SONIYA MUKHERJEE ([id number]) on 09/19/2021 11:25:17 AM Referred By: Columba Confirmed By:SUMAYA BELLO MD
--- NOTE | 2021-09-15 15:50 | EX.ED.DYSGE1 ---
HPI <ATILIO Eldridge - Last Filed: 09/15/21 17:28> History of Present Illness Chief Complaint: Dizziness Narrative Narrative: 35-year-old female with no significant medical problems presents the emergency department with 2 separate near syncopal episodes in the last week. 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 Patient had another 1 today, and is here for evaluation. She denies any cough, fever, chills peer denies any chest pain, denies any recent vacations or trips. Denies any history of blood clots or legs or lungs PFSH <ATILIO Eldridge - Last Filed: 09/15/21 17:28> PFSH Allergy/AdvReac Type Severity Reaction Status Date / Time hydrocodone [From [place]] AdvReac Nausea Verified 06/10/20 18:22 SHRIMP Allergy Mild Swelling, Uncoded 06/10/20 18:22 upset stomache Social History (System 10/07/18 @ 15:52 by Beatriz Serrato) Smoking Status: Current every day smoker tobacco type: cigarettes and e-cigarettes ROS <ATILIO Eldridge - Last Filed: 09/15/21 17:28> ROS ED ROS Narrative Constitutional: Negative for fever, chills, weight loss, weakness. Positive for diaphoresis, weakness Eyes: Negative for vision loss, vision change, double vision ENT: Negative for any sore throat, ear pain, congestion Cardiovascular: Negative for any chest pain, palpitations. Positive for chest tightness Respiratory: Negative for any cough, sputum production, hemoptysis, dyspnea, dyspnea on exertion, orthopnea Gastrointestinal: Negative for any abdominal pain, vomiting, diarrhea, constipation, blood in stool, blood in vomit. Positive for nausea : Negative for any urinary frequency, dysuria, retention, blood in urine Muscle skeletal: Negative for any muscle joint pain, stiffness, myalgias, arthralgias, neck pain, back pain Neurological: Negative for any headache, numbness or tingling, dizziness. Positive for near syncope Skin: Negative for any rashes, lumps, itching, abrasions, lacerations Psychiatric: Negative for any depression, anxiety, stress, suicidal ideation, homicidal ideation Hematologic: Negative for any easy bruising, excessive bruising, easy bleeding Allergies: Negative for any eczema, hives, rash EXAM <ATILIO Eldridge - Last Filed: 09/15/21 17:28> Physical Exam Narrative Exam Narrative: Vital signs reviewed. HEET: Head normocephalic atraumatic, TMs clear bilaterally. Posterior pharynx is clear, moist mucous membranes. Nares clear bilaterally. Neck: Supple with no lymphadenopathy or tenderness. No signs of meningismus, negative jolt sign. Cardiac: Regular rate and rhythm no murmurs gallops or rubs, equal peripheral pulses bilaterally. Respiratory: Lungs clear to auscultation bilaterally. No chest tenderness. Abdomen: Soft, nontender, nondistended. No abdominal bruit or pulsatile masses. No hepatosplenomegaly Extremities: No peripheral edema, no signs of gross trauma or deformity. Active full range of motion of all extremities. Neuro: Cranial nerves II through XII intact, no focal neurological deficits. Skin: Clean dry and intact with no rash, purpura, petechiae, vesicles or pustules. Backs/flank: No CVA tenderness, no midline spinal tenderness, no deformity. Psych: Normal mood and affect. No SI, HI or acute psychosis. Const Vital Signs: 09/15/21 14:25 09/15/21 16:12 09/15/21 16:19 Temperature 97.9 F Temperature Source Temporal Pulse Rate 76 Pulse Rate [Lying] 60 Pulse Rate [Sitting (for 1 minute prior to obtaining)] 68 Pulse Rate [Standing (for 1 minute prior to obtaining)] 84 Respiratory Rate 16 Respiratory Effort Short of Breath Blood Pressure 108/69 Blood Pressure [Lying] 91/54 L Blood Pressure [Sitting (for 1 minute prior to obtaining)] 99/68 Blood Pressure [Standing (for 1 minute prior to obtaining)] 98/64 Blood Pressure Mean 82 Blood Pressure Mean [Lying] 66 Blood Pressure Mean [Sitting (for 1 minute prior to obtaining)] 78 Blood Pressure Mean [Standing (for 1 minute prior to obtaining)] 75 Pulse Ox 100 Oxygen Delivery Method Room Air <Dr. Ra Ward MD - Last Filed: 09/15/21 17:38> Physical Exam Const Vital Signs: 09/15/21 14:25 09/15/21 16:12 09/15/21 16:19 Temperature 97.9 F Temperature Source Temporal Pulse Rate 76 Pulse Rate [Lying] 60 Pulse Rate [Sitting (for 1 minute prior to obtaining)] 68 Pulse Rate [Standing (for 1 minute prior to obtaining)] 84 Respiratory Rate 16 Respiratory Effort Short of Breath Blood Pressure 108/69 Blood Pressure [Lying] 91/54 L Blood Pressure [Sitting (for 1 minute prior to obtaining)] 99/68 Blood Pressure [Standing (for 1 minute prior to obtaining)] 98/64 Blood Pressure Mean 82 Blood Pressure Mean [Lying] 66 Blood Pressure Mean [Sitting (for 1 minute prior to obtaining)] 78 Blood Pressure Mean [Standing (for 1 minute prior to obtaining)] 75 Pulse Ox 100 Oxygen Delivery Method Room Air [facility] <ATILIO Eldridge - Last Filed: 09/15/21 17:28> [facility] Lab Data Labs: Laboratory Results - last 24 hr 09/15/21 09/15/21 09/15/21 16:11 16:11 16:11 WBC 9.4 RBC 4.38 Hgb 13.4 Hct 39.9 MCV 91.1 MCH 30.6 MCHC 33.6 RDW Std Deviation 40.5 RDW Coeff of Dimas 12.1 Plt Count 277 MPV 9.4 Immature Gran % (Auto) 0.500 Neut % (Auto) 76.5 H Lymph % (Auto) 16.8 L [place] % (Auto) 5.4 Eos % (Auto) 0.4 Baso % (Auto) 0.4 Absolute Neuts (auto) 7.2 Absolute Lymphs (auto) 1.58 Nucleated RBC % 0 Sodium 139 Potassium 3.6 Chloride 107 Carbon Dioxide 28.0 Anion Gap 4 L BUN 10 Creatinine 0.53 L Estim Creat Clear Calc 140.01 Est GFR (MDRD) Af Amer 169 Est GFR (MDRD) Non-Af 140 BUN/Creatinine Ratio 18.9 Glucose 99 Calcium 8.8 Troponin I High Sens < 3 L Urine Color Yellow Urine Clarity Sl. Cloudy Urine pH 5.0 Ur Specific [place] 1.025 Urine Protein Negative Urine Glucose (UA) Normal Urine Ketones Negative Urine Occult Blood 25 H Urine Nitrite Negative Urine Bilirubin Negative Urine Urobilinogen Normal Ur Leukocyte Esterase Negative Urine RBC 0 SEEN Urine WBC 0-5 SEEN Ur Squamous Epith Cells 0-5 SEEN Urine Bacteria 2+ Urine Mucus 0 SEEN Urine Test Negative Radiography Diagnostic Testing: Clinical Impression(s) from Imaging Studies Chest X-Ray 09/15/21 16:23 IMPRESSION: 1. Normal x-ray examination of the chest. 2. No pneumonia, pneumonitis, bronchitis, or pulmonary mass lesions. 3. No hyperinflation. Electronically Signed: Xavier Barrera MD at 16:39 EDT , EKG Normal sinus rhythm with sinus arrhythmia: Attestation: I personally reviewed and interpreted this EKG as follows: Interpretation: Sinus Rhythm Comments: Sinus rhythm with 65 bpm, IN interval 138 ms, QRS duration 94 ms, no acute ST elevation, no acute infarct noted. Treatment and Re-Evaluation Narrative: Patient appears well, patient appears nontoxic, vital signs are stable. Patient presents the emergency department with 2 episodes of near syncope over the last week. Patient's physical exam was grossly unremarkable, patient appears well and in no distress at this time. Patient did receive a cardiac work-up, patient had normal chest x-ray interpreted by ER physician. Patient's laboratory studies show normal CBC, normal chemistry. Patient's high-sensitivity troponin was negative. Patient's urinalysis was negative for any , did show +2 bacteria however there is no nitrates, no leukocyte esterase, I do not believe this is a urinary tract infection. Patient will need to follow-up with cardiology for this vasovagal near syncope. At this time there is no indication of any ACS, [place], infectious symptoms. Patient is happy with plan of care, patient structured to maintain hydration. She is stable for discharge. Instructed return for worsening symptoms <Dr. Ra Ward MD - Last Filed: 09/15/21 17:38> [facility] Narrative Medical decision making narrative: I have personally performed a face to face assessment of the patient and have reviewed the CORBIN Note. I performed a substantive portion of the visit including all aspects of the following. My victor findings include: History is remarkable for near sickle cell today. This occurred while sitting. She was sitting for 30 minutes performing her duties at work. She had episode last week as well. She was standing at that time. Prior to to these 2 episodes she had several episodes during her . She never informed her doctor. She does not have history of POTS. She denies black or maroon-colored stool. She denies constitutional symptoms. She states her vision did seem dark. She was nauseous and diaphoretic. Apparently people at work and commented she looked pale. She states last week she vomited. When she was she had single episodes where she had loss of consciousness. Exam is unremarkable. HEENT exam is normal. Heart is regular without murmur, gallop or rub. Lungs are clear to auscultation. Abdomen is benign. Neuro exam is nonfocal. Medical Decision Making patient's history and physical consistent with vasovagal near and complete syncope. Patient's states she does put a lot of salt on her food. They both commented that she does eat well and does drink plenty of fluids. She presently had no symptoms. Suspect this represents vasovagal syncopal episode. If she has recurrent episode she will need referral to cardiology for table tilt test. Other additions or changes: None Lab Data Attestation: I reviewed the patient's lab results. Lab results narrative: CBC, H&H are unremarkable. Basic metabolic panel is unremarkable. Troponin is normal. UA reveals bacteria without pyuria and patient is asymptomatic. This would not indicate a urinary tract infection Labs: Laboratory Results - last 24 hr 09/15/21 09/15/21 09/15/21 16:11 16:11 16:11 WBC 9.4 RBC 4.38 Hgb 13.4 Hct 39.9 MCV 91.1 MCH 30.6 MCHC 33.6 RDW Std Deviation 40.5 RDW Coeff of Dimas 12.1 Plt Count 277 MPV 9.4 Immature Gran % (Auto) 0.500 Neut % (Auto) 76.5 H Lymph % (Auto) 16.8 L [place] % (Auto) 5.4 Eos % (Auto) 0.4 Baso % (Auto) 0.4 Absolute Neuts (auto) 7.2 Absolute Lymphs (auto) 1.58 Nucleated RBC % 0 Sodium 139 Potassium 3.6 Chloride 107 Carbon Dioxide 28.0 Anion Gap 4 L BUN 10 Creatinine 0.53 L Estim Creat Clear Calc 140.01 Est GFR (MDRD) Af Amer 169 Est GFR (MDRD) Non-Af 140 BUN/Creatinine Ratio 18.9 Glucose 99 Calcium 8.8 Troponin I High Sens < 3 L Urine Color Yellow Urine Clarity Sl. Cloudy Urine pH 5.0 Ur Specific [place] 1.025 Urine Protein Negative Urine Glucose (UA) Normal Urine Ketones Negative Urine Occult Blood 25 H Urine Nitrite Negative Urine Bilirubin Negative Urine Urobilinogen Normal Ur Leukocyte Esterase Negative Urine RBC 0 SEEN Urine WBC 0-5 SEEN Ur Squamous Epith Cells 0-5 SEEN Urine Bacteria 2+ Urine Mucus 0 SEEN Urine Test Negative Radiography Diagnostic Testing: Clinical Impression(s) from Imaging Studies Chest X-Ray 09/15/21 16:23 IMPRESSION: 1. Normal x-ray examination of the chest. 2. No pneumonia, pneumonitis, bronchitis, or pulmonary mass lesions. 3. No hyperinflation. Electronically Signed: Xavier Barrera MD at 16:39 EDT , Discharge Plan Triage Chief Complaint: Dizziness ED Midlevel Provider: Ramesh Saldana ED Provider: Ra Ward Dx/Rx/DC Orders Clinical Impression: Postural dizziness with near syncope Instructions: Causes of Syncope, Dizziness Fainting Poss Causes, ED Dizziness or Syncope ... Primary Care Provider: Care Physician,No Primary Referrals: Harini Sanchez MD [Med Staff - Active Staff] - Care Physician,No Primary [Primary Care Provider] - Activity Restrictions/Additional Instructions: Please follow-up with cardiology regarding this symptoms. Print Language: Montserratian Disposition Disposition: Home, Self Care
[2021-09-15 16:12] VITALS: BP 91/54; BP 98/64; BP 99/68; PULSE 60; PULSE 68; PULSE 84
[2021-09-15] MEDS: 0.9% Normal Saline 1,000 ML 1000 ML IV (16:18)
[2021-09-15 16:22] LABS: Mucous, Urine 0 SEEN /hpf (<or=2+); Red Blood Cells-Urine 0 SEEN /hpf (0-5)
--- NOTE | 2021-09-15 16:23 | RAD_ITS ---
STUDY: PORTABLE AP UPRIGHT CHEST X-RAY OF 1622 HOURS ON 09/15/2021 REASON FOR EXAM: 35-year-old female with shortness of breath. TECHNIQUE: A single view portable AP upright chest x-ray was performed per protocol. COMPARISON: 02/22/2013. FINDINGS: Normal osseous structures. The heart, sherrie, diaphragm, and lungs have normal appearance. No infiltrates, atelectasis, effusion. No pneumonia, pneumonitis, or bronchitis. No hyperinflation. No subdiaphragmatic abnormalities. No significant interval change since that previous study of 02/22/2013. RAD/Chest 1 View (Portable) IMPRESSION: 1. Normal x-ray examination of the chest. 2. No pneumonia, pneumonitis, bronchitis, or pulmonary mass lesions. 3. No hyperinflation. Electronically Signed: Xavier Barrera MD at 16:39 EDT ,
[2021-09-15 16:31] LABS: Color, Urine Yellow (Yellow); Glucose, Dipstick Normal (Normal); Ketone-Dipstick Negative (Negative); Leukocyte Esterase-Dipstick Negative /ul (Negative); Nitrite-Dipstick Negative (Negative); Occult Blood-Urine 25 /ul (Negative); Protein-Dipstick Negative (Negative); Specific Gravity, Urine 1.025 (1.002-1.030); Urine Bilirubin Dipstick Negative (Negative); Urine Clarity Sl. Cloudy (Clear); Urine Urobilinogen Normal (Normal)
[2021-09-15 16:37] LABS: Absolute Lymphocyte Count 1.58 X10^3/uL (0.83-4.51); Absolute Neutrophil Count 7.2 X10^3/uL (2.0-7.7); Basophil# 0.04 X10^3/uL; Basophil% 0.4 % (0-1); Eosinophil# 0.04 X10^3/uL; Eosinophils% 0.4 % (0-5); Hematocrit 39.9 % (37-47); Hemoglobin 13.4 g/dL (12.0-15.0); Lymphocyte # 1.58 X10^3/ul (0.83-4.51); Lymphocyte % 16.8 % (19-41); Mean Corp Hgb Conc 33.6 g/dL (32-36); Mean Corpuscular Hgb 30.6 pg (27.0-32.0); Mean Corpuscular Volume 91.1 fL (81-99); Mean Platelet Vol. 9.4 fl (6.2-12.0); Monocyte# 0.51 X10^3/uL; Monocyte% 5.4 % (0-10); NRBC Flagged by Analyzer 0 % (0-5); Neutrophil % 76.5 % (47-70); Platelet Count 277 K/mm3 (150-450); RBC Distribution Width CV 12.1 % (11.6-14.6); RBC Distribution Width SD 40.5 fl (35.1-43.9); Red Blood Count 4.38 M/mm3 (4.2-5.4); White Blood Count 9.4 K/mm3 (4.4-11.0)
[2021-09-15 16:40] LABS: Bacteria 2+ /hpf (None Seen); Squamous Epithelial Cells - UA 0-5 SEEN /hpf (5-10); White Blood Cells 0-5 SEEN /hpf (0-5)
[2021-09-15 16:51] LABS: Anion Gap 4 (5-15); BUN 10 mg/dL (7-18); BUN/Creat Ratio 18.9 RATIO (10-20); Calcium,Total 8.8 mg/dL (8.5-10.1); Chloride 107 mmol/L (98-107); Creatinine, Serum 0.53 mg/dL (0.55-1.02); EST Glomerular Filtration Rate 140 mL/min (>60); Est Glom Filt Rate - Afr Amer 169 mL/min (>60); Estimated Creatinine Clearance 140.01 ml/min; Glucose 99 mg/dL (74-106); Potassium 3.6 mmol/L (3.5-5.1); Sodium Level 139 mmol/L (136-145); Troponin-I HS < 3 pg/mL (3.0-54.0)
[2021-09-15 17:07] LABS: Internal QC Validated? YES +Cl - CLEAR BKGD; Pregnancy, Urine Negative Negative
[2021-09-15 18:17] VITALS: BP 107/62
== END 2021-09-15 18:18 | disposition home or self-care (01) ==
PROVIDERS: Nurse Practitioner; Emergency Provider Emergency Medicine; Visit Provider Emergency Medicine
DX: R42 Dizziness and giddiness (principal); R55 Syncope and collapse; F17.210 Nicotine dependence, cigarettes, uncomplicated; F17.290 Nicotine dependence, other tobacco product, uncomplicated
CPT/HCPCS: 71045; 80048; 81001; 81025; 84484; 85025; 93005; 96360; 99284; J7030; A4216

== ENCOUNTER 2022-01-30 18:57 | Emergency (ER) | payer MEDICAID, SELFPAY ==
[2022-01-30 18:57] VITALS: BP 111/75; PULSE 67; RESP 18; TEMP 36.4; O2SAT 100; BMI 28.6
--- NOTE | 2022-01-30 20:34 | EX.ED.GENINJ ---
HPI History of Present Illness Chief Complaint: Other, Pain/Inj Detail of Chief Complaint: Atraumatic recurrent neck pain Informant: patient Onset/Context/Timing Onset: Days Current Severity: Mild Maximum Severity: Mild Associated Symptoms Associated Symptoms: Negative for Parasthesias, Weakness, Loss of function, Inability to ambulate, Loss of consciousness or Amnesia Narrative Narrative: 36-year-old female prior neck pain but no trauma or surgery. States last several days she has had stiffness in her neck with discomfort. Denies any weakness or tingling to her upper or lower extremities. No numbness. She is never had a neck surgery. States that they have been using a massage gun with limited relief. No fever. Prior similar symptoms: Yes Recent Illness/Hospitalization: No PFSH PFSH Medical History Kidney stones Migraines Smoker Home Medications metaxalone 800 mg tablet 800 mg PO TID PRN muscle pain 7 days #21 tabs 01/30/22 [Rx Last Taken Unknown] Allergy/AdvReac Type Severity Reaction Status Date / Time shrimp Allergy Mild Swelling Verified 01/30/22 18:57 hydrocodone [From [place]] AdvReac Nausea Verified 01/30/22 18:57 Social History Smoking Status: Current every day smoker tobacco type: cigarettes and e-cigarettes ROS ROS ED ROS Narrative Denies recent illness. Review of Systems ROS Unobtainable: Denies due to encephalopathy Constitutional Constitutional ED: Denies chills Eyes Eyes: Denies blind spots ENT ENT ED: Denies change in voice Cardiovascular Cardiovascular: Denies abdominal pain Respiratory/Chest Respiratory/Chest: Denies chest congestion Gastrointestinal Gastrointestinal: Denies diarrhea Genitourinary Genitourinary ED: Denies hematuria Musculoskeletal Musculoskeletal: Reports as per HPI and neck pain Integumentary Denies change in hair or jaundice Neurologic Neurologic: Denies dizziness Psychiatric Psychiatric: Reports none Endocrine Endocrinology: Reports none Hematologic/Lymphatic Hematologic/Lymphatic: Reports none Allergic/Immunologic Allergic/Immunologic ED: Denies lip swelling or mouth swelling EXAM Physical Exam Narrative Exam Narrative: Parent to evaluate female. Vital signs stable afebrile. H EENT exam unremarkable. Neck mild basilar neck soft tissue tenderness. However she has full flexion-extension. Full rotation left and right. Spine nontender. Back nontender to the posterior shoulders mild soft tissue tenderness. Lungs clear to auscultation. Heart regular rhythm no murmur. Anterior neck nontender no lymphadenopathy. Abdomen soft nontender no bowel sounds no peritoneal signs. Moving all 4 extremities. Normal motor strength bilaterally. 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 Dorsi plantarflexion intact. Neurologic exam normal. Const Vital Signs: 01/30/22 18:57 01/30/22 19:58 Temperature 97.6 F L Temperature Source Temporal Pulse Rate 67 Respiratory Rate 18 Respiratory Pattern Normal Blood Pressure 111/75 Blood Pressure Mean 87 Pulse Ox 100 Oxygen Delivery Method Room Air Positive well nourished, well developed, alert, oriented x3, no apparent distress, average body habitus, no limitations and healthy appearing; Negative for obese, cachectic or unkempt General Appearance ED: active, cooperative, comfortable, well kempt and well developed; Negative for unkempt or cachectic Exam Limitations: no limitations Nutritional Appearance: Negative for cachectic or obese HEENT Reports normocephalic, head/scalp atraumatic, hearing grossly normal bilaterally and moist oral mucous membranes normocephalic, normal to inspection and atraumatic; Negative for trauma Face and Sinus: normal facial exam External Ear: external ears normal Mouth ED: Yes oral and palatal mucosa normal Mouth: oral and palatal mucosa normal Throat: posterior oropharynx normal Eyes PERRL and EOMs intact bilaterally General Eye ED: Yes normal appearance of both eyes Neck full ROM, No nuchal rigidity, no lymphadenopathy, supple, no meningeal signs, no JVD, thyroid normal and No nodes Neck Narrative: Mild soft tissue tenderness. General: normal visual inspection and trachea midline; Negative for anterior neck swelling, lymphadenopathy, submandibular swelling, meningeal signs or mass Lymph Lymphatic: no lymphadenopathy noted and no lymphedema noted; Negative for lymphedema or lymphadenopathy Chest Wall inspection of chest normal and palpation of chest normal Resp normal respiratory effort, normal air movement, no retractions, no use of accessory muscles and clear to auscultation bilaterally Effort and Inspection: able to speak in complete sentences Auscultation: clear to auscultation bilaterally Cardio regular rate, regular rhythm, S1 normal heart sound, S2 normal heart sound, no murmurs, no rub, no gallops, no clicks and no JVD Rate: regular rate Rhythm: regular rhythm GI normal to inspection, nondistended, normoactive bowel sounds, soft to palpation, non-tender, non-distended, no masses and no bruits Back/Spine no CVA tenderness, normal ROM, normal to inspection, thoracic and lumbar spine normal to inspection and no thoracic nor lumbar tenderness Extremity normal to inspection, full ROM, normal capillary refill, no joint enlargement, no clubbing, cyanosis or edema, no calf tenderness and no pedal edema Neuro oriented x3, CN's II-XII intact bilaterally, moves all extremities, no focal motor deficits, no sensory deficits noted and deep tendon reflexes 2+ bilaterally Sensorium / Orientation: awake, alert, oriented to person, oriented to place and oriented to time; Negative for orientation impaired, confused, lethargic, somnolent, obtunded or stuporous Meningeal Signs: no meningeal signs Speech: speech normal Motor Exam: strength 5/5 throughout Psych mental status grossly normal and thought process normal Appearance: grossly normal; Negative for unkempt Attitude: calm, engaged and No paranoid Activity / Motor Behavior: appropriate eye contact Speech: normal speech Mood & Affect: euthymic mood Thought Process: normal thought process Thought Content: normal thought content Skin no rashes or lesions noted, no wounds, skin turgor normal, no jaundice, no petechiae and no mottling General Skin Exam: no breakdown Lesions: no lesions Rashes: no rashes Trauma: no lacerations or abrasions MDM MDM MDM Narrative Medical decision making narrative: 36-year-old female with acute on recurrent neck pain suspect muscle skeletal etiology. Is been no trauma she needs no imaging. Motrin for pain and inflammation. Skelaxin for muscle relaxation. Hot shower warm bath. Massage. Follow-up if not improving. Discharge Plan Triage Chief Complaint: Other, Pain/Inj ED Provider: Angel Luis Bedolla Dx/Rx/DC Orders Clinical Impression: Acute neck pain, Muscle spasm Instructions: ED Muscle Spasm, ED Neck Pain Prescriptions: New metaxalone 800 mg tablet 800 mg PO TID PRN (Reason: muscle pain) 7 Days Qty: 21 0RF Primary Care Provider: Care Physician,No Primary Referrals: Raymundo Mcleod MD [Non-Staff] - 1 Week if not improving Care Physician,No Primary [Primary Care Provider] - Activity Restrictions/Additional Instructions: Motrin for pain and inflammation. 600 mg 3 times a day. Skelaxin 3 times a day to relax the muscles. Follow-up with not improving. Hot shower, warm bath massage and hot tub. Disposition Disposition: Home, Self Care
== END 2022-01-30 20:51 | disposition home or self-care (01) ==
PROVIDERS: Emergency Provider Emergency Medicine; Visit Provider Emergency Medicine
DX: M54.2 Cervicalgia (principal); M62.838 Other muscle spasm; F17.210 Nicotine dependence, cigarettes, uncomplicated
CPT/HCPCS: 99282

== ENCOUNTER 2023-02-25 03:59 | Emergency (ER) | payer MEDICAID, SELFPAY ==
[2023-02-25 04:00] VITALS: BP 104/79; PULSE 85; RESP 18; TEMP 36.4; O2SAT 98; BMI 24.3
--- NOTE | 2023-02-25 04:10 | CT_ITS ---
INDICATION: right flank pain EXAMINATION: CT Abdomen And Pelvis W/O Contrast Injection TECHNIQUE: Helically acquired images were obtained of the abdomen and pelvis with sagittal and coronal reconstructed images. Individualized dose optimization techniques were used for this CT. IV contrast dosage and agent: None. Oral contrast: None. COMPARISON: 06/10/2020 CT. FINDINGS: VESSELS: No abdominal aortic aneurysm. LIVER: No intrahepatic or extrahepatic biliary duct dilation. Mild hepatomegaly. Multiple hepatic cysts. GALLBLADDER: No calcified stones. No evidence of cholecystitis. PANCREAS: No focal solid or cystic mass. No evidence of pancreatitis. SPLEEN: Normal. ADRENAL GLANDS: Normal. KIDNEYS AND URETERS: No urinary tract stone. No hydronephrosis or hydroureter. No significant asymmetric perinephric stranding. URINARY BLADDER: Unremarkable. BOWEL: No evidence of diverticulosis or diverticulitis. Appendix appears normal. No evidence of bowel obstruction. REPRODUCTIVE ORGANS: IUD within the uterus. PERITONEUM: No intraabdominal free fluid or free air. LYMPH NODES: No pathologically enlarged mesenteric or retroperitoneal lymph nodes. ABDOMINAL WALL: No abdominal or pelvic wall hernia. BONES: No acute abnormality. L2 vertebral body hemangioma. LOWER CHEST: Visualized lung bases are unremarkable. CT/Abdomen/Pelvis without Cont IMPRESSION: 1. No acute abnormality. 2. No urinary tract stone or obstruction. Electronically Signed: Juan Pablo Lucio DO at 5:46 EST ,
--- NOTE | 2023-02-25 04:12 | EDS_ITS ---
HPI History of Present Illness Chief Complaint: Abd Pain Informant: patient Onset/Context/Timing Onset: Today Narrative Narrative: Patient presents with rather severe right lower quadrant pain that started about an hour ago. She has a history of kidney stones as well as ovarian cysts. She states now that she thinks that she has had some intermittent pain in her right groin line for the last month or so. About an hour prior to arrival she got severe pain in the right flank area and into the right groin line. She became nauseated and sweaty and vomited. She has required surgery for her kidney stones in the past. PFSH PFSH Medical History Kidney stones Migraines Smoker Home Medications lisdexamfetamine 30 mg capsule (Vyvanse) 30 mg PO DAILY 02/25/23 [History Last Taken Unknown] sulfamethoxazole 800 mg-trimethoprim 160 mg tablet (Bactrim DS) 1 tab PO BID 10 days #20 tabs 02/25/23 [Rx Last Taken Unknown] Allergy/AdvReac Type Severity Reaction Status Date / Time shrimp Allergy Mild Swelling Verified 02/25/23 03:59 hydrocodone [From [place]] AdvReac Nausea Verified 02/25/23 03:59 Social History Smoking Status: Current every day smoker tobacco type: cigarettes and e- cigarettes ROS ROS ED Constitutional Constitutional ED: Denies chills or fever(s) Eyes Eyes: Denies discharge from eye(s) ENT ENT ED: Denies discharge from eye(s), rhinorrhea or sore throat Cardiovascular Cardiovascular: Denies chest pain or palpitations Respiratory/Chest Respiratory/Chest: Denies cough or dyspnea Gastrointestinal Gastrointestinal: Reports abdominal pain, nausea and vomiting; Denies diarrhea Genitourinary Genitourinary ED: Denies dysuria Musculoskeletal Musculoskeletal: Reports back pain; Denies extremity pain Integumentary Denies Abrasions or rash Neurologic Neurologic: Denies headache(s) or weakness Psychiatric Psychiatric: Denies anxiety or depression Allergic/Immunologic Allergic/Immunologic ED: Denies lip swelling or urticaria EXAM Physical Exam Const Vital Signs: 02/25/23 04:00 Temperature 97.6 F L Temperature Source Temporal Pulse Rate 85 Respiratory Rate 18 Blood Pressure 104/79 Blood Pressure Mean 87 Pulse Ox 98 Oxygen Delivery Method Room Air Positive well nourished and well developed General Appearance ED: well developed HEENT Reports moist mucous membranes Eyes EOMs intact bilaterally Chest Wall inspection of chest normal and palpation of chest normal Resp normal respiratory effort and clear to auscultation bilaterally Cardio regular rate and regular rhythm GI GI Narrative: Abdomen soft with no reproducible tenderness. No palpable masses. Extremity normal to inspection Neuro oriented x3 and no sensory deficits noted Motor Exam: strength 5/5 throughout Psych mental status grossly normal Skin no rashes or lesions noted and no wounds MDM MDM MDM Narrative Medical decision making narrative: IV line initiated. Patient given IV fluids along with morphine, Zofran, Toradol. Labwork obtained to evaluate for leukocytosis, anemia, and electrolyte derangement. Urinalysis obtained to evaluate for infection/hematuria. CT flank obtained to evaluate for possible kidney stone or ovarian cyst. Lab Data Attestation: I reviewed the patient's lab results. Labs: Laboratory Results - last 24 hr 02/25/23 02/25/23 04:00 05:45 WBC 11.9 H RBC 4.73 Hgb 14.0 Hct 42.2 MCV 89.2 MCH 29.6 MCHC 33.2 RDW Std Deviation 38.2 RDW Coeff of [place] 11.8 Plt Count 344 MPV 9.2 Immature Gran % (Auto) 0.300 Neut % (Auto) 55.3 Lymph % (Auto) 34.9 [place] % (Auto) 7.2 Eos % (Auto) 1.7 Baso % (Auto) 0.6 Absolute Neuts (auto) 6.6 Absolute Lymphs (auto) 4.15 Nucleated RBC % 0 Sodium 142 Potassium 3.7 Chloride 108 H Carbon Dioxide 28.0 Anion Gap 6 BUN 7 Creatinine 0.66 Estim Creat Clear Calc 114.59 Est GFR (MDRD) Af Amer 130 Est GFR (MDRD) Non-Af 107 BUN/Creatinine Ratio 10.6 Glucose 76 Calcium 9.1 Serum , Qual NEGATIVE Urine Color Yellow Urine Clarity Sl. Cloudy Urine pH 6.5 Ur Specific [place] 1.020 Urine Protein 15 H Urine Glucose (UA) Normal Urine Ketones Negative Urine Occult Blood 10 H Urine Nitrite Positive H Urine Bilirubin Negative Urine Urobilinogen Normal Ur Leukocyte Esterase 100 H Urine RBC 0 SEEN Urine WBC 0-5 SEEN Ur Squamous Epith Cells 5-10 SEEN Urine Bacteria 2+ Urine Mucus 0 SEEN Radiography Diagnostic Testing: Clinical Impression(s) from Imaging Studies Abdomen/Pelvis CT 02/25/23 04:10 IMPRESSION: 1. No acute abnormality. 2. No urinary tract stone or obstruction. Electronically Signed: Juan Pablo LucioDO at 5:46 EST , Treatment and Re-Evaluation :: White blood cell count is 11.9 with normal differential. Hemoglobin is 14.0. Chemistry studies unremarkable with normal renal function. test is negative. Urinalysis is positive for nitrites with 2+ bacteria. CT scan of the flank reveals no acute abnormality. No urinary tract stone or obstruction. I specifically looked to the pelvis and do not see any evidence of ovarian cyst at this time. Given the patient's flank pain with evidence of UTI, she will be given a 10-day course of antibiotics to treat pyelonephritis. Return instructions provided. Discharge Plan Triage Chief Complaint: Abd Pain ED Provider: Zee Alvarez Dx/Rx/DC Orders Clinical Impression: Pyelonephritis Instructions: ED Pyelonephritis, Female (Adult) Prescriptions: New sulfamethoxazole-trimethoprim [Bactrim DS] 800-160 mg tablet 1 tab PO BID 10 Days Qty: 20 0RF No Action lisdexamfetamine [Vyvanse] 30 mg capsule 30 mg PO DAILY Patient Comments: Take 1 capsule by mouth once daily for 30 days. Primary Care Provider: Care Physician,No Primary Referrals: Richelle Camacho DO [Med Staff - Active Staff] - As Needed Care Physician,No Primary [Primary Care Provider] - Disposition Disposition: Home, Self Care
--- OUTSIDE RECORDS SUMMARY | 2023-02-25 04:19 | XMS RPT_ITS | CCD ---
Author Name Unknown Address [address] [facility] [address] [place] [address] Organization [facility] Care Team Providers Care Machine Operators Name Role Phone Unavailable Primary Care Provider Unavailsofia Barcenas REVENUE RESEARCH ANALYST.Yancy CARTER Primary Care Provider MARISABEL WHATLEY Referring Unavailable MARISABEL WHATLEY Attending Unavailable YANCY BARCENAS Primary Care Unavailable YANCY BARCENAS Attending Unavailable YANCY BARCENAS Primary Care Unavailable YANCY BARCENAS Referring Unavailable YANCY BARCENAS Referring Unavailable YANCY BARCENAS Primary Care Unavailable YANCY BARCENAS Attending Unavailable Allergies Allergy Classification Reported Allergen(s) Allergy Type Date of Onset Reaction(s) Facility (14 sources) Shellfish; Translations: [SHELLFISH DERIVED] Drug Allergy 03-14-2012 Anaphylaxis [facility] Work Phone: (12 sources) Acetaminophen / HYDROcodone; Translations: [HYDROCODONE-ACETA MINOPHEN] Drug Allergy 06-19-2022 GI Upset [facility] Medications Current Medications Medication Drug Class(es) Dates Sig (Normalized) Sig (Original) lisdexamfetamine dimesylate 30 mg oral capsule (15 sources) Central Nervous System Stimulant Start: 08-24-2022 End: 02-17-2023 take 1 capsule by mouth once daily lisdexamfetamine (VYVANSE) 30 mg capsule Indications: Attention deficit hyperactivity disorder (ADHD), combined type Take 1 capsule by mouth once daily for 30 days. 30 capsule 0 01/18/2023 02/17/2023 Active Completed/Discontinued Medications Medication Drug Class(es) Dates Sig (Normalized) Sig (Original) acetaminophen 325 mg / HYDROcodone bitartrate 5 mg oral tablet (2 sources) Opioid Agonist Start: 10-01-2016 End: 12-01-2022 HYDROcodone-acetami nophen (NORCO) 5-325 mg per tablet Take by mouth. 0 10/01/2016 01/19/2022 Discontinued (Other) Problems Active Problems Problem Classification Problem Date Documented Date Episodic/Chronic Attention-deficit, conduct, and disruptive behavior disorders (19 sources) Attention deficit hyperactivity disorder, combined type; Translations: [Attention-deficit hyperactivity disorder, combined type] Onset: 10-24-2017 10-24-2017 Chronic Attention-deficit, conduct, and disruptive behavior disorders (1 source) Attention-deficit hyperactivity disorder, combined type; Translations: [Attention deficit hyperactivity disorder (ADHD), combined type] Onset: 10-24-2017 Chronic Cardiac dysrhythmias (1 source) Tachycardia; Translations: [Tachycardia, unspecified] Episodic Menstrual disorders (1 source) Irregular periods; Translations: [Irregular menstruation, unspecified] Chronic Other aftercare (1 source) Other group home (current) drug therapy; Translations: [Medication management] Onset: 12-19-2022 Episodic Other non-traumatic joint disorders (1 source) Pain of right wrist; Translations: [Pain in right wrist] Episodic Other upper respiratory infections (1 source) Sore throat symptom; Translations: [Acute pharyngitis, unspecified] Episodic Past or Other Problems Problem Classification Problem Date Documented Date Episodic/Chronic Calculus of urinary tract (13 sources) Kidney stone; Translations: [Calculus of kidney] Onset: 06-07-2020 06-07-2020 Episodic Immunizations and screening for infectious disease (6 sources) Patient encounter status; Translations: [Encounter for screening for human papillomavirus (HPV)] Onset: 01-19-2022 Episodic Malaise and fatigue (2 sources) Fatigue; Translations: [Other fatigue] Onset: 08-23-2022 Episodic Other non-traumatic joint disorders (1 source) Pain in right wrist; Translations: [Right wrist pain] Onset: 08-23-2022 Episodic Other screening for suspected conditions (not mental disorders or infectious disease) (4 sources) Cancer cervix screening status; Translations: [Encounter for screening for malignant neoplasm of cervix] Onset: 08-23-2022 Episodic Results Test Name Value Interpretation Reference Range Facil ity Vital Signs Date Time Vital Sign Value Performing Clinician Faci lity 07-18-2022 11:53-0400 Body weight 72.12 kg Yancy Barcenas REVENUE RESEARCH ANALYST.GUEST EXPERIENCE MANAGER Work Phone: [facility] 07-18-2022 11:53-0400 Diastolic blood pressure 66 mm[Hg] Yancy Barcenas REVENUE RESEARCH ANALYST.GUEST EXPERIENCE MANAGER Work Phone: [facility] 07-18-2022 11:53-0400 Heart rate 86 /min Yancy Barcenas REVENUE RESEARCH ANALYST.GUEST EXPERIENCE MANAGER Work Phone: [facility] 07-18-2022 11:53-0400 Respiratory rate 14 /min Yancy Barcenas REVENUE RESEARCH ANALYST.GUEST EXPERIENCE MANAGER Work Phone: [facility] 07-18-2022 11:53-0400 Systolic blood pressure 100 mm[Hg] Yancy Barcenas REVENUE RESEARCH ANALYST.GUEST EXPERIENCE MANAGER Work Phone: [facility] 06-19-2022 17:32-0400 Body temperature 98.01 [degF] Maria Del Carmen Athy PA-C Work Phone: [facility] 06-19-2022 17:32-0400 Body weight 74.84 kg Maria Del Carmen Athy PA-C Work Phone: [facility] 06-19-2022 17:32-0400 Diastolic blood pressure 68 mm[Hg] Maria Del Carmen Athy PA-C Work Phone: [facility] 06-19-2022 17:32-0400 Heart rate 101 /min Maria Del Carmen Athy PA-C Work Phone: [facility] 06-19-2022 17:32-0400 Respiratory rate 18 /min Maria Del Carmen Athy PA-C Work Phone: [facility] 06-19-2022 17:32-0400 SaO2% (BldA) [Mass fraction] 98 % Maria Del Carmen Athy PA-C Work Phone: [facility] 06-19-2022 17:32-0400 Systolic blood pressure 102 mm[Hg] Maria Del Carmen Athy PA-C Work Phone: [facility] 01-19-2022 14:34-0500 Body height 170.5 cm Marisabel Corralescalf REVENUE RESEARCH ANALYST.GUEST EXPERIENCE MANAGER Work Phone: [facility] 01-19-2022 14:34-0500 Body weight 83.01 kg Marisabel Phylicia REVENUE RESEARCH ANALYST.GUEST EXPERIENCE MANAGER Work Phone: [facility] 01-19-2022 14:34-0500 Diastolic blood pressure 72 mm[Hg] Marisabel Ozark REVENUE RESEARCH ANALYST.GUEST EXPERIENCE MANAGER Work Phone: [facility] 01-19-2022 14:34-0500 Systolic blood pressure 98 mm[Hg] Marisabel Ozark REVENUE RESEARCH ANALYST.GUEST EXPERIENCE MANAGER Work Phone: [facility] Encounters Encounter Date Encounter Type Care Provider Facility Start: 01-17-2023 Refill Yancy Ventura e REVENUE RESEARCH ANALYST.GUEST EXPERIENCE MANAGER Work Phone: [facility] Procedures Date Procedure Procedure Detail Performing Clinician Start: 06-19-2022 STREP A MOLECULAR (POC) Maria Del Carmen Hazel PA-C Work Phone: Start: 10-05-2016 Adult depression screening assessment Pam Moe REVENUE RESEARCH ANALYST.GUEST EXPERIENCE MANAGER Work Phone: Plan of Treatment Date Care Activity Detail Author Start: 01-19-2027 HPV TESTING HPV TESTING [facility] Start: 01-19-2027 PAP TESTING PAP TESTING [facility] Start: 12-09-2025 Urine microalbumin profile [facility] Start: 06-07-2025 HPV TESTING HPV TESTING [facility] Start: 06-07-2025 PAP TESTING PAP TESTING [facility] Start: 07-19-2023 COVID-19 VACCINE (#1) COVID-19 VACCI NE (#1) [facility] Immunizations Immunization Date Immunization Notes Care Provider Fa sri 12-10-2015 tetanus toxoid, redu rylee diphtheria toxoid, and acellular pertussis vaccine, adsorbed Pam Moe REVENUE RESEARCH ANALYST.RAUL Work Phone: [facility] Payers Date Payer Category Payer Medicaid [id number] 2016 Medicaid [facility] [id number] 2016-Present [phone] [address] [place] [address] Medicaid [id number] 2016 Medicaid [id number] 2016 Medicaid [id number] Social History Date Type Detail Facility Start: 03-14-2012 End: 04-03-2022 Tobacco smoking status NHIS Ex-smoker [facility] Work Phone: End: 02-20-2011 History of tobacco use Current smoker [facility] Work Phone: Start: 03-14-2012 End: 04-03-2022 Tobacco use and exposure Smokeless tobacco non-user [facility] Work Phone: Start: 11-10-2020 End: 06-19-2022 Alcohol intake Current non-drinker of alcohol (finding) [facility] Start: 1985 Sex Assigned At Not on file [facility] Start: 09-05-2021 End: 09-15-2021 Exposure to SARS-CoV-2 (event) Not sure [facility] End: 02-20-2011 History of tobacco use Cigarette Smoker [facility] Work Phone: Start: 06-19-2022 End: 07-18-2022 History of Social function [facility] Work Phone: Start: 06-19-2022 End: 07-18-2022 Tobacco use panel [facility] Work Phone: Adult Depression Screening Assessment 1 [facility] Work Phone: Clinical Notes 08-05-2015 to 01-18-2023 Telephone Encounter - Tammie Rodriguez Cma - 01/18/2023 3:00 PM ESTTelephone Encounter - Yancy Barcenas APRN.CNP - 01/18/2023 2:47 PM ESTPatient Instructions Note Date & Type Note Facility 01-18-2023 Miscellaneous Notes Pt notified and verbalized understanding Tammie Rodriguez Cma PDMP reviewed. Patient requested and refilled prescriptions appropriately. No suspicious activity noted. Please call patient to let her know rx was sent. Pt asking to be called when Rx has been sen to pharmacy. Susan Crouch LPN Patient calls and states that she is out of Vyvanse. Patient asking if this can be sent in? Date of last office: 12/19/2022 Date of next office visit: 03/22/2023 Requested Prescriptions Pending Prescriptions Disp Refills lisdexamfetamine (VYVANSE) 30 mg capsule 30 capsule 0 Sig: Take 1 capsule by mouth once daily for 30 days. Please advise. Thank you. Marilou Schafer RN. documented in this encounter [facility] 12-22-2022 Miscellaneous Notes Please let patient know tox screen only shows amphetamines as appropriate. documented in this encounter [facility] 12-19-2022 Note HNO ID: [id number] Author: Yancy Barcenas APRN.RAUL Service: ? Author Type: Nurse Practitioner Type: Progress Notes Filed: 12/19/2022 9:41 AM Note Text: Chief Complaint Patient presents with: F/U 3 Month HPI Mariel Michel is a 37 year old female who presents here today for Above Complaints.. Patient presents for medication follow up. Patient currently on vyvanse and is doing well on current dose. Past medical history, appointments, medications, allergies reviewed. Previous Medical History PAST MEDICAL HISTORY Diagnosis Date Dysthymic disorder Depression (non-psychotic) Herpes simplex virus (HSV) infection Kidney stone 05/2020 Kidney stone 06/07/2020 Ovarian cyst PMH - PAST MEDICAL HISTORY OF ARTHRITIS PMH - PAST MEDICAL HISTORY OF ULCERS TREATED WITH ANTACIDS AGES 14-16 depression Seizure (HCC) Trauma Previous Surgical History PAST SURGICAL HISTORY Procedure Laterality Date DILATION AND CURETTAGE DXAND/THER NONOBSTETRIC Dilation AND curettage INSERTION OF IUD 12/15/2016 PAST SURGICAL HISTORY OF Left 2020 Kidney stone removal Family History FAMILY HISTORY Problem Relation Age of Onset None Mother Diabetes Father Alcohol/Drug Maternal Uncle ETOH Alcohol/Drug Maternal Uncle ETOH Breast Cancer Other MGAUNT Patient Allergies ALLERGIES Allergen Reactions Shellfish Derived Anaphylaxis Vicodin [Hydrocodon* GI Upset Current Medications Current Outpatient Medications on File Prior to Visit Medication Sig lisdexamfetamine (VYVANSE) 30 mg capsule Take 1 capsule by mouth once daily for 30 days. levonorgestrel (MIRENA) 20 mcg/24 hr (5 years) IUD 1 Each by INTRAUTERINE route one time only for 1 dose. No current facility-administered medications on file prior to visit. Social History Social History Tobacco Use Smoking status: Former Years: 6 Types: Cigarettes Quit date: 02/20/2011 Years since quittin.8 Smokeless tobacco: Never Vaping Use Vaping Use: current everyday user Substances: Nicotine Substance Use Topics Alcohol use: No Drug use: Not Currently Comment: NO DRUG USE X 11 MONTHS,ECSTACY IN PAST Review of Symptoms REVIEW OF SYSTEMS SEE HPI EXAM: BP 112/68 Pulse 80 Resp 14 Wt 68.9 kg (152 lb) LMP 01/03/2022 (Within Days) BMI 23.72 kg/m? General Appearance: Well appearing, alert, in no acute distress, well-hydrated, well nourished.. Health Maintenance List Influenza Vaccine(1) Never done Covid-19 Vaccine(1) due on 07/19/2023 DTaP,Tdap,Td Vaccine(2 - Td or Tdap) due on 12/09/2025 Pap Testing due on 01/19/2027 HPV Testing due on 01/19/2027 Depression Assessment Completed Hepatitis C Screening Completed HIV Screening Completed HPV Vaccine Aged Out Hepatitis B Vaccine Discontinued ASSESSMENT/PLAN: 1. Attention deficit hyperactivity disorder (ADHD), combined type - ICD9: 314.01, ICD10: F90.2 (primary diagnosis) -Continue Vyvanse 2. Medication management - ICD9: V58.69, ICD10: Z79.899 - PAIN PANEL, UR QUANT - TOX SCREEN ROUT UR Yancy Barcenas APRN.RAUL [facility] 12-12-2022 Miscellaneous Notes PDMP reviewed. Patient requested and refilled prescriptions appropriately. No suspicious activity noted. Patient requesting a call when RX is approved and sent to the pharmacy. Please call patient at: [phone] Last refill 11/03/22 Qty: 30 with 0 refills ROSE MARY 07/18/22 NOV 12/19/22 Mitchell Meneses LPN Pharmacy verified in Epic Patient has been identified by name and date of : Yes Patient requesting a call when RX is approved and sent to the pharmacy. Please call patient at: [phone] Patient phones for refill(s): Requested Prescriptions Pending Prescriptions Disp Refills lisdexamfetamine (VYVANSE) 30 mg capsule 30 capsule 0 Sig: Take 1 capsule by mouth once daily for 30 days. Date of last office visit : 07/18/2022 Date of next office visit : 12/19/2022 Last 2 Encounter Wt Readings: Date: Wt: 07/18/2022 72.1 kg (159 lb) 06/19/2022 74.8 kg (165 lb) Not applicable Please advise. Zee Gutiérrez documented in this encounter [facility] 11-19-2022 Miscellaneous Notes Reason for Call: Covid Concern Outcome: Follow up with Dr fabrizio when open. Interim Care Advice given. Reason for Disposition [1] COVID-19 infection suspected by caller or triager AND [2] mild symptoms (cough, fever, or others) AND [3] negative COVID-19 rapid test Answer Assessment - Initial Assessment Questions 1. COVID-19 DIAGNOSIS: has covid; patient did not get tested as yet 2. COVID-19 EXPOSURE: yes; tested positive 3. ONSET: yes; around Nov 04 4. WORST SYMPTOM: head congestion and scratchy throat 5. COUGH: mild intermittent cough 6. FEVER: no fever 7. RESPIRATORY STATUS: no distress 8. OUPYOS-ECPJ-APTJD: same 9. HIGH RISK DISEASE: none; 10. VACCINE: no 11. BOOSTER: na 12. : LMP 2 weeks ago 13. OTHER SYMPTOMS none 14. O2 SATURATION MONITOR: na Protocols used: Coronavirus (COVID-19) Diagnosed or [id number] documented in this encounter [facility] 11-03-2022 Miscellaneous Notes Pt notified rx has been sent to pharm. Mitchell Meneses LPN The following approved medication requests have been transmitted electronically. Requested Prescriptions Signed Prescriptions Disp Refills lisdexamfetamine (VYVANSE) 30 mg capsule 30 capsule 0 Sig: Take 1 capsule by mouth once daily for 30 days. Authorizing Provider: CHIDI DRAPER PA-C Patient has been identified by name and date of : Patient phones for refill(s): Requested Prescriptions Pending Prescriptions Disp Refills lisdexamfetamine (VYVANSE) 30 mg capsule 30 capsule 0 Sig: Take 1 capsule by mouth once daily for 30 days. Date of last office visit in primary care: 07/18/2022, has appt 11/10/2022 Last 2 Encounter Wt Readings: Date: Wt: 07/18/2022 72.1 kg (159 lb) 06/19/2022 74.8 kg (165 lb) Previous labs/tests for medication: Not applicable Please advise. Thank you. Missy No LPN Please call patient when rx is sent please. so she can make sure they have med in stock, she has one pill left documented in this encounter [facility] 09-29-2022 Miscellaneous Notes PDMP reviewed, no suspicious activity noted. Medications refilled and requested appropriately Patient reports she took her last Vyvanse pill today and is currently out. Forgot to call in for refill sooner. Script pended for review. Thank you. *Please call patient when script has been sent to pharmacy. Requested Prescriptions Pending Prescriptions Disp Refills lisdexamfetamine (VYVANSE) 30 mg capsule 30 capsule 0 Sig: Take 1 capsule by mouth once daily for 30 days. Last encounter with this provider: 07/18/2022 Next appt: 10/19/2022 Bonnie Melo RN documented in this encounter [facility] 08-24-2022 Miscellaneous Notes Patient active on mychart. Message sent Tammie Rodriguez Cma Please let patient know her wrist xray is normal. documented in this encounter [facility] 08-24-2022 Miscellaneous Notes Patient notified and verbalized understanding Tammie oRdriguez Cma Please call pt when med has been sent in to the pharm. Susan Crouch LPN Patient has been identified by name and date of : Yes Last office visit in this department: 07/18/2022 RX INSTRUCTIONS: Patient aware RX will be sent to pharmacy. No need to notify patient. Patient phones requesting refills as follows: Requested Prescriptions Pending Prescriptions Disp Refills lisdexamfetamine (VYVANSE) 30 mg capsule 30 capsule 0 Sig: Take 1 capsule by mouth once daily for 30 days. Please review and advise. Janiya Hilton documented in this encounter [facility] 08-24-2022 Miscellaneous Notes Patient notified and verbalized understanding Tammie Rodriguez Cma Please let patient know her vitamin d is low. She can start an OTC vitamin d supplement 5000 units daily documented in this encounter [facility] 08-23-2022 Note HNO ID: [id number] Author: RT Tiffany(R) Service: ? Author Type: Health Education Director Type: Progress Notes Filed: 08/23/2022 3:16 PM Note Text: Radiology Service Progress Note PATIENT NAME: Mariel Michel DATE OF SERVICE: August 23, 2022 TIME: 3:08 PM PATIENT IDENTITY VERIFICATION COMPLETED USING TWO (2) IDENTIFIERS: Name and Date of confirmed by patient verbally. FALL SCREENING: Has the patient had 2 falls in the last year or 1 fall with injury or currently using an Ambulatory Assistive Device (Walker, Cane, Wheelchair, Crutches, etc.)? No PATIENT GENDER DATA: Female. status: : No status: NO. PATIENT RELEVANT IMPLANT DATA REVIEWED: Yes RADIOLOGY DEPARTMENT: General X-ray: Exam(s) Completed: Upper Extremity X-Ray(s): Wrist, right PERIPHERAL IV DATA: Not applicable SIGNED BY: RT Tiffany(R) August 23, 2022 3:08 PM [facility] 07-18-2022 Note HNO ID: [id number] Author: Yancy Barcenas APRN.GUEST EXPERIENCE MANAGER Service: ? Author Type: Nurse Practitioner Type: Progress Notes Filed: 07/18/2022 12:21 PM Note Text: Chief Complaint Patient presents with: Establish Care HPI Mariel Michel is a 36 year old female who presents here today for Above Complaints.. Patient presents to [facility]. Patient also verbalizes wanting to go back on vyvanse. 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 Past medical history, appointments, medications, allergies reviewed. Previous Medical History PAST MEDICAL HISTORY Diagnosis Date Dysthymic disorder Depression (non-psychotic) Herpes simplex virus (HSV) infection Kidney stone 05/2020 Kidney stone 06/07/2020 Ovarian cyst PMH - PAST MEDICAL HISTORY OF ARTHRITIS PMH - PAST MEDICAL HISTORY OF ULCERS TREATED WITH ANTACIDS AGES 14-16 depression Seizure (HCC) Trauma Previous Surgical History PAST SURGICAL HISTORY Procedure Laterality Date DILATION AND CURETTAGE DXAND/THER NONOBSTETRIC Dilation AND curettage INSERTION OF IUD 12/15/2016 PAST SURGICAL HISTORY OF Left 2020 Kidney stone removal Family History FAMILY HISTORY Problem Relation Age of Onset None Mother Diabetes Father Alcohol/Drug Maternal Uncle ETOH Alcohol/Drug Maternal Uncle ETOH Breast Cancer Other MGAUNT Patient Allergies ALLERGIES Allergen Reactions Shellfish Derived Anaphylaxis Vicodin [Hydrocodon* GI Upset Current Medications Current Outpatient Medications on File Prior to Visit Medication Sig levonorgestrel (MIRENA) 20 mcg/24 hr (5 years) IUD 1 Each by INTRAUTERINE route one time only for 1 dose. No current facility-administered medications on file prior to visit. Social History Social History Tobacco Use Smoking status: Former Years: 6.00 Types: Cigarettes Quit date: 02/20/2011 Years since quittin.4 Smokeless tobacco: Never Vaping Use Vaping Use: current everyday user Substances: Nicotine Substance Use Topics Alcohol use: No Drug use: Not Currently Comment: NO DRUG USE X 11 MONTHS,ECSTACY IN PAST Review of Symptoms REVIEW OF SYSTEMS GENERAL: No weight loss, malaise or fevers HEENT: Negative for frequent or significant headaches, No changes in hearing or vision, no nose bleeds or other nasal problems NECK: Negative for lumps, goiter, pain and significant neck swelling RESPIRATORY: Negative for cough, hemoptysis, wheezing, COPD, dyspnea or shortness of breath CARDIOVASCULAR: Negative for chest pain, leg swelling, hypertension, CHF or palpitations GI: No nausea, vomiting, or diarrhea : No history of dysuria, frequency or incontinence ROLL SETTER: Negative for abnormal vaginal bleeding, abnormal vaginal discharge MUSCULOSKELETAL: joint pain or swelling SKIN: Negative for lesions, rash, and itching PSYCH: Negative for sleep disturbance, mood disorder and recent psychosocial stressors HEMATOLOGY/LYMPHOLOGY: Negative for prolonged bleeding, bruising easily or swollen nodes ENDOCRINE: Negative for cold or heat intolerance, polyuria, polydipsia and goiter NEURO: No history of headaches, syncope, paralysis, seizures or tremors EXAM: BP 100/66 Pulse 86 Resp 14 Wt 72.1 kg (159 lb) LMP 01/03/2022 (Within Days) BMI 24.81 kg/m? General Appearance: Well appearing, alert, in no acute distress, well-hydrated, well nourished.. Neck: Supple, no adenopathy; thyroid symmetric, normal size, no bruits. Lungs: Lungs clear to auscultation. No wheezing, rhonchi, rales.. Heart: RRR without murmur, gallop, or rubs. No ectopy. Abdomen: Normal abdominal exam, Abdomen soft, non-tender. Bowel sounds normal. No masses, organomegaly Extremities: No deformities, edema, skin discoloration, clubbing or cyanosis. Good capillary refill. . Peripheral Pulses: Normal. Neurologic: Gait normal. Reflexes normal and symmetric. Sensation grossly intact.. Health Maintenance List HEPATITIS B(1 of 3 - 3-dose series) Never done DEPRESSION ASSESSMENT Never done COVID-19 VACCINE(1) due on 07/19/2023 INFLUENZA(Season Ended) due on 10/20/2022 DTAP,TDAP,TD(2 - Td or Tdap) due on 12/09/2025 PAP TESTING due on 01/19/2027 HPV TESTING due on 01/19/2027 HEPATITIS C SCREENING Completed HIV SCREENING Completed ASSESSMENT/PLAN: 1. Medication management - ICD9: V58.69, ICD10: Z79.899 (primary diagnosis) - CBC + DIFF - COMP METABOLIC PANEL 2. Screening for diabetes mellitus - ICD9: V77.1, ICD10: Z13.1 - HGB A1C 3. Encounter for lipid screening for cardiovascular disease - ICD9: V77.91, V81.2, ICD10: Z13.220, Z13.6 - LIPID PANEL, NONFASTING 4. Right wrist pain - ICD9: 719.43, ICD10: M25.531 - XR WRIST GENERAL 3V PA/LAT/OBL RIGHT 5. Attention deficit hyperactivity disorder (ADHD), combined type - ICD9: 314.01, ICD10: F90.2 - LISDEXAMFETAMINE 30 MG (more content not included)... [facility] 07-18-2022 Instructions Yancy Barcenas APRN.CNP - 07/18/2022 12:18 PM EDT Start vyvanse 2. Complete labs 3. Follow up in 3 months documented in this encounter [facility] 07-18-2022 History of Presen t illness Narrative Chief Complaint Patient presents with: [facility] HPI Mariel Michel is a 36 year old female who presents here today for Above Complaints.. Patient presents to [facility]. Patient also verbalizes wanting to go back on vyvanse. 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 Past medical history, appointments, medications, allergies reviewed. Previous Medical History PAST MEDICAL HISTORY Diagnosis Date Dysthymic disorder Depression (non-psychotic) Herpes simplex virus (HSV) infection Kidney stone 05/2020 Kidney stone 06/07/2020 Ovarian cyst PMH - PAST MEDICAL HISTORY OF ARTHRITIS PMH - PAST MEDICAL HISTORY OF ULCERS TREATED WITH ANTACIDS AGES 14-16 depression Seizure (HCC) Trauma Previous Surgical History PAST SURGICAL HISTORY Procedure Laterality Date DILATION & CURETTAGE DX&/THER NONOBSTETRIC Dilation & curettage INSERTION OF IUD 12/15/2016 PAST SURGICAL HISTORY OF Left 2020 Kidney stone removal Family History FAMILY HISTORY Problem Relation Age of Onset None Mother Diabetes Father Alcohol/Drug Maternal Uncle ETOH Alcohol/Drug Maternal Uncle ETOH Breast Cancer Other MGAUNT Patient Allergies ALLERGIES Allergen Reactions Shellfish Derived Anaphylaxis Vicodin [Hydrocodon* GI Upset Current Medications Current Outpatient Medications on File Prior to Visit Medication Sig levonorgestrel (MIRENA) 20 mcg/24 hr (5 years) IUD 1 Each by INTRAUTERINE route one time only for 1 dose. No current facility-administered medications on file prior to visit. Social History Social History Tobacco Use Smoking status: Former Years: 6.00 Types: Cigarettes Quit date: 02/20/2011 Years since quittin.4 Smokeless tobacco: Never Vaping Use Vaping Use: current everyday user Substances: Nicotine Substance Use Topics Alcohol use: No Drug use: Not Currently Comment: NO DRUG USE X 11 MONTHS,ECSTACY IN PAST Review of Symptoms REVIEW OF SYSTEMS GENERAL: No weight loss, malaise or fevers HEENT: Negative for frequent or significant headaches, No changes in hearing or vision, no nose bleeds or other nasal problems NECK: Negative for lumps, goiter, pain and significant neck swelling RESPIRATORY: Negative for cough, hemoptysis, wheezing, COPD, dyspnea or shortness of breath CARDIOVASCULAR: Negative for chest pain, leg swelling, hypertension, CHF or palpitations GI: No nausea, vomiting, or diarrhea : No history of dysuria, frequency or incontinence ROLL SETTER: Negative for abnormal vaginal bleeding, abnormal vaginal discharge MUSCULOSKELETAL: joint pain or swelling SKIN: Negative for lesions, rash, and itching PSYCH: Negative for sleep disturbance, mood disorder and recent psychosocial stressors HEMATOLOGY/LYMPHOLOGY: Negative for prolonged bleeding, bruising easily or swollen nodes ENDOCRINE: Negative for cold or heat intolerance, polyuria, polydipsia and goiter NEURO: No history of headaches, syncope, paralysis, seizures or tremors EXAM: BP 100/66 Pulse 86 Resp 14 Wt 72.1 kg (159 lb) LMP 01/03/2022 (Within Days) BMI 24.81 kg/m General Appearance: Well appearing, alert, in no acute distress, well-hydrated, well nourished.. Neck: Supple, no adenopathy; thyroid symmetric, normal size, no bruits. Lungs: Lungs clear to auscultation. No wheezing, rhonchi, rales.. Heart: RRR without murmur, gallop, or rubs. No ectopy. Abdomen: Normal abdominal exam, Abdomen soft, non-tender. Bowel sounds normal. No masses, organomegaly Extremities: No deformities, edema, skin discoloration, clubbing or cyanosis. Good capillary refill. . Peripheral Pulses: Normal. Neurologic: Gait normal. Reflexes normal and symmetric. Sensation grossly intact.. Health Maintenance List HEPATITIS B(1 of 3 - 3-dose series) Never done DEPRESSION ASSESSMENT Never done COVID-19 VACCINE(1) due on 07/19/2023 INFLUENZA(Season Ended) due on 10/20/2022 DTAP,TDAP,TD(2 - Td or Tdap) due on 12/09/2025 PAP TESTING due on 01/19/2027 HPV TESTING due on 01/19/2027 HEPATITIS C SCREENING Completed HIV SCREENING Completed ASSESSMENT/PLAN: 1. Medication management - ICD9: V58.69, ICD10: Z79.899 (primary diagnosis) - CBC + DIFF - COMP METABOLIC PANEL 2. Screening for diabetes mellitus - ICD9: V77.1, ICD10: Z13.1 - HGB A1C 3. Encounter for lipid screening for cardiovascular disease - ICD9: V77.91, V81.2, ICD10: Z13.220, Z13.6 - LIPID PANEL, NONFASTING 4. Right wrist pain - ICD9: 719.43, ICD10: M25.531 - XR WRIST GENERAL 3V PA/LAT/OBL RIGHT 5. Attention deficit hyperactivity disorder (ADHD), combined type - ICD9: 314.01, ICD10: F90.2 - LISDEXAMFETAMINE 30 MG CAPSULE 6. Fatigue, unspecified type - ICD9: 780.79, ICD10: R53.83 - VITAMIN D 25 HYDROXY - VITAMIN B12 BLOOD Yancy Barcenas APRN.GUEST EXPERIENCE MANAGER documented in this encounter [facility] 06-19-2022 Note HNO ID: [id number] Author: Maria Del Carmen Hazel PA-C Service: ? Author Type: Physician Coke Wheeler Type: Progress Notes Filed: 06/19/2022 6:53 PM Note Text: This note was created using [employer]. Subjective Mariel Michel is a 36 year old female. HPI Patient presents with sore throat, hoarse voice body aches and chills over the past 5 to 6 days. She states her throat really was not bothering her at first but over the weekend started to bother her. She took 3-1/2 days worth of amoxicillin she had leftover when she had strep in April. Denies diarrhea or vomiting. Denies significant cough. Review of Systems Constitutional: Positive for chills and fatigue. HENT: Positive for congestion, sore throat and voice change. Respiratory: Negative for cough and wheezing. Cardiovascular: Negative. Gastrointestinal: Negative. Genitourinary: Negative. Musculoskeletal: Positive for myalgias. Neurological: Positive for headaches. All other systems reviewed and are negative. PAST MEDICAL HISTORY Diagnosis Date Dysthymic disorder Depression (non-psychotic) Herpes simplex virus (HSV) infection Kidney stone 05/2020 Kidney stone 06/07/2020 Ovarian cyst PMH - PAST MEDICAL HISTORY OF ARTHRITIS PMH - PAST MEDICAL HISTORY OF ULCERS TREATED WITH ANTACIDS AGES 14-16 depression Seizure (HCC) Trauma Current Outpatient Medications Medication Sig Dispense Refill predniSONE (DELTASONE) 20 mg tablet Take 2 tablets by mouth once daily for 5 days. 10 tablet 0 levonorgestrel (MIRENA) 20 mcg/24 hr (5 years) IUD 1 Each by INTRAUTERINE route one time only for 1 dose. 1 Each 0 No current facility-administered medications for this visit. PAST SURGICAL HISTORY Procedure Laterality Date DILATION AND CURETTAGE DXAND/THER NONOBSTETRIC Dilation AND curettage INSERTION OF IUD 12/15/2016 PAST SURGICAL HISTORY OF Left 2020 Kidney stone removal FAMILY HISTORY Problem Relation Age of Onset None Mother Diabetes Father Alcohol/Drug Maternal Uncle ETOH Alcohol/Drug Maternal Uncle ETOH Breast Cancer Other MGAUNT Social History Tobacco Use Smoking status: Former Years: 6.00 Types: Cigarettes Quit date: 02/20/2011 Years since quittin.3 Smokeless tobacco: Never Vaping Use Vaping Use: current everyday user Substances: Nicotine Substance Use Topics Alcohol use: No Drug use: Not Currently Comment: NO DRUG USE X 11 MONTHS,ECSTACY IN PAST Objective BP 102/68 Pulse 101 Temp 36.7 ?C (98 ?F) Resp 18 Wt 74.8 kg (165 lb) LMP 01/03/2022 (Within Days) SpO2 98% BMI 25.75 kg/m? Physical Exam Vitals reviewed. Constitutional: Appearance: Normal appearance. HENT: Head: Normocephalic and atraumatic. Right Ear: Tympanic membrane, ear canal and external ear normal. Left Ear: Tympanic membrane, ear canal and external ear normal. Nose: Nose normal. Mouth/Throat: Mouth: Mucous membranes are moist. Pharynx: Oropharynx is clear. Comments: Hoarse voice Cardiovascular: Rate and Rhythm: Normal rate and regular rhythm. Heart sounds: Normal heart sounds. Pulmonary: Effort: Pulmonary effort is normal. Breath sounds: Normal breath sounds. Musculoskeletal: Cervical back: Neck supple. Skin: General: Skin is warm and dry. Neurological: General: No focal deficit present. Mental Status: She is alert. Assessment and Plan ASSESSMENT/PLAN: 1. Sore throat - ICD9: 462, ICD10: J02.9 - Alere Strep Test negative, no culture pending. Patient hasn't had antibiotics in 2 days, throat exam normal. - prednisone for throat pain. - Discussed supportive care treatment with fluids, rest and analgesia. - The patient may also use warm salt water gargles, throat lozenges and/or OTC throat spray as needed. - The patient should follow up in 3-5 days if symptoms persist or worsen - STREP A MOLECULAR (POC) Maria Del Carmen Hazel PA-C [facility] 06-19-2022 History of Presen t illness Narrative This note was created using [employer]. Subjective Mariel Michel is a 36 year old female. HPI Patient presents with sore throat, hoarse voice body aches and chills over the past 5 to 6 days. She states her throat really was not bothering her at first but over the weekend started to bother her. She took 3-1/2 days worth of amoxicillin she had leftover when she had strep in April. Denies diarrhea or vomiting. Denies significant cough. Review of Systems Constitutional: Positive for chills and fatigue. HENT: Positive for congestion, sore throat and voice change. Respiratory: Negative for cough and wheezing. Cardiovascular: Negative. Gastrointestinal: Negative. Genitourinary: Negative. Musculoskeletal: Positive for myalgias. Neurological: Positive for headaches. All other systems reviewed and are negative. PAST MEDICAL HISTORY Diagnosis Date Dysthymic disorder Depression (non-psychotic) Herpes simplex virus (HSV) infection Kidney stone 05/2020 Kidney stone 06/07/2020 Ovarian cyst PMH - PAST MEDICAL HISTORY OF ARTHRITIS PMH - PAST MEDICAL HISTORY OF ULCERS TREATED WITH ANTACIDS AGES 14-16 depression Seizure (HCC) Trauma Current Outpatient Medications Medication Sig Dispense Refill predniSONE (DELTASONE) 20 mg tablet Take 2 tablets by mouth once daily for 5 days. 10 tablet 0 levonorgestrel (MIRENA) 20 mcg/24 hr (5 years) IUD 1 Each by INTRAUTERINE route one time only for 1 dose. 1 Each 0 No current facility-administered medications for this visit. PAST SURGICAL HISTORY Procedure Laterality Date DILATION & CURETTAGE DX&/THER NONOBSTETRIC Dilation & curettage INSERTION OF IUD 12/15/2016 PAST SURGICAL HISTORY OF Left 2020 Kidney stone removal FAMILY HISTORY Problem Relation Age of Onset None Mother Diabetes Father Alcohol/Drug Maternal Uncle ETOH Alcohol/Drug Maternal Uncle ETOH Breast Cancer Other MGAUNT Social History Tobacco Use Smoking status: Former Years: 6.00 Types: Cigarettes Quit date: 02/20/2011 Years since quittin.3 Smokeless tobacco: Never Vaping Use Vaping Use: current everyday user Substances: Nicotine Substance Use Topics Alcohol use: No Drug use: Not Currently Comment: NO DRUG USE X 11 MONTHS,ECSTACY IN PAST Objective BP 102/68 Pulse 101 Temp 36.7 C (98 F) Resp 18 Wt 74.8 kg (165 lb) LMP 01/03/2022 (Within Days) SpO2 98% BMI 25.75 kg/m Physical Exam Vitals reviewed. Constitutional: Appearance: Normal appearance. HENT: Head: Normocephalic and atraumatic. Right Ear: Tympanic membrane, ear canal and external ear normal. Left Ear: Tympanic membrane, ear canal and external ear normal. Nose: Nose normal. Mouth/Throat: Mouth: Mucous membranes are moist. Pharynx: Oropharynx is clear. Comments: Hoarse voice Cardiovascular: Rate and Rhythm: Normal rate and regular rhythm. Heart sounds: Normal heart sounds. Pulmonary: Effort: Pulmonary effort is normal. Breath sounds: Normal breath sounds. Musculoskeletal: Cervical back: Neck supple. Skin: General: Skin is warm and dry. Neurological: General: No focal deficit present. Mental Status: She is alert. Assessment and Plan ASSESSMENT/PLAN: 1. Sore throat - ICD9: 462, ICD10: J02.9 - Alere Strep Test negative, no culture pending. Patient hasn't had antibiotics in 2 days, throat exam normal. - prednisone for throat pain. - Discussed supportive care treatment with fluids, rest and analgesia. - The patient may also use warm salt water gargles, throat lozenges and/or OTC throat spray as needed. - The patient should follow up in 3-5 days if symptoms persist or worsen - STREP A MOLECULAR (POC) Maria Del Carmen Hazel PA-C documented in this encounter [facility] 04-03-2022 Note HNO ID: [id number] Author: Lucy Villalobos APRN.GUEST EXPERIENCE MANAGER Service: ? Author Type: Nurse Practitioner Type: Progress Notes Filed: 04/03/2022 5:57 PM Note Text: Subjective Sore Throat Associated symptoms include congestion. Pertinent negatives include no coughing, diarrhea, ear pain, headaches, shortness of breath or vomiting. Mariel Michel is a 36 year old female who presents body aches, sore throat, fatigue. Symptoms started last night. She has had some slight nasal congestion. She has not had a fever. She has not taken any medication today. No known sick contacts. Review of Systems Constitutional: Positive for malaise/fatigue. Negative for chills and fever. HENT: Positive for congestion and sore throat. Negative for ear pain. Respiratory: Negative for cough and shortness of breath. Cardiovascular: Negative. Gastrointestinal: Negative for diarrhea, nausea and vomiting. Musculoskeletal: Positive for myalgias. Neurological: Negative for headaches. BP 100/64 Pulse 100 Temp 36.8 ?C (98.3 ?F) Resp 18 Wt 79.7 kg (175 lb 9.6 oz) LMP 01/03/2022 (Within Days) SpO2 97% BMI 27.40 kg/m? PAST MEDICAL HISTORY Diagnosis Date Dysthymic disorder Depression (non-psychotic) Herpes simplex virus (HSV) infection Kidney stone 05/2020 Kidney stone 06/07/2020 Ovarian cyst PMH - PAST MEDICAL HISTORY OF ARTHRITIS PMH - PAST MEDICAL HISTORY OF ULCERS TREATED WITH ANTACIDS AGES 14-16 depression Seizure (HCC) Trauma PAST SURGICAL HISTORY Procedure Laterality Date DILATION AND CURETTAGE DXAND/THER NONOBSTETRIC Dilation AND curettage INSERTION OF IUD 12/15/2016 PAST SURGICAL HISTORY OF Left 2020 Kidney stone removal ALLERGIES Shellfish Derived MEDICATIONS amoxicillin (POLYMOX, AMOXIL) 500 mg capsule Take 1 capsule by mouth twice daily for 10 days. levonorgestrel (MIRENA) 20 mcg/24 hr (5 years) IUD 1 Each by INTRAUTERINE route one time only for 1 dose. FAMILY HISTORY Problem Relation Age of Onset None Mother Diabetes Father Alcohol/Drug Maternal Uncle ETOH Alcohol/Drug Maternal Uncle ETOH Breast Cancer Other MGAUNT Social History Tobacco Use Smoking status: Former Years: 6.00 Types: Cigarettes Quit date: 02/20/2011 Years since quittin.1 Smokeless tobacco: Never Vaping Use Vaping Use: current everyday user Substances: Nicotine Substance Use Topics Alcohol use: No Drug use: Not Currently Comment: NO DRUG USE X 11 MONTHS,ECSTACY IN PAST Objective Physical Exam Vitals and nursing note reviewed. Constitutional: Appearance: Normal appearance. HENT: Right Ear: Tympanic membrane, ear canal and external ear normal. Left Ear: Tympanic membrane, ear canal and external ear normal. Nose: Nose normal. Mouth/Throat: Mouth: Mucous membranes are moist. Pharynx: Uvula midline. Posterior oropharyngeal erythema (slight) present. No oropharyngeal exudate. Cardiovascular: Rate and Rhythm: Normal rate and regular rhythm. Heart sounds: Normal heart sounds. Pulmonary: Effort: Pulmonary effort is normal. No respiratory distress. Breath sounds: Normal breath sounds. No wheezing or rales. Musculoskeletal: Cervical back: Neck supple. Lymphadenopathy: Cervical: No cervical adenopathy. Skin: General: Skin is warm and dry. Findings: No erythema or rash. Neurological: Mental Status: She is alert. ASSESSMENT/PLAN: 1. Sore throat - ICD9: 462, ICD10: J02.9 (primary diagnosis) - Alere Strep Test positive, no culture pending - Amoxicillin for 10 days. - Discussed supportive care treatment with fluids, rest and analgesia. - The patient may also use warm salt water gargles, throat lozenges and/or OTC throat spray as needed. - Contagious dz precautions discussed- including considered contagious until on antibiotics for 24 hours - Call back if drooling, increased temperature, symptoms of dehydration and/or still sick in one week - STREP A MOLECULAR (POC) 2. Strep throat - ICD9: 034.0, ICD10: J02.0 - AMOXICILLIN 500 MG CAPSULE - Follow-up with your PCP in 3-5 days if symptoms have not improved or sooner if symptoms worsen - Discussed red flags and need for immediate medical evaluation if any occur. - Discussed supportive care treatment with fluids, rest and analgesia. - Discussed expected course of illness Lucy Villalobos APRN.CNP [facility] 01-19-2022 Note HNO ID: [id number] Author: Marisabel Whatley APRN.RAUL Service: ? Author Type: Nurse Practitioner Type: Progress Notes Filed: 01/19/2022 3:39 PM Note Text: Mariel is a 36 year old who presents for an annual gynecologic exam with complaints, periods have started back up and she would like to have the Mirena change out. . Menses: having monthly periods Contraception: IUD HPV vaccine: No Last Pap: 06/10/2020 abnormal, [facility] HPV: 06/10/2020 positive 16 History of abnormal pap: Yes LEEP 2020 Last mammogram: never Sexually active: Yes OB History T1 L2 SAB2 IAB0 Ectopic0 Multiple0 Live Births2 Valve Tester History LMP: 01/03/2022 (Within Days), IUD Age at Menarche: Age at First : Age at Menopause: Valve Tester History Comments: Sexual Activity: Yes; Male Contraception: Condom, I.U.D. PAST MEDICAL HISTORY Diagnosis Date Dysthymic disorder Depression (non-psychotic) Herpes simplex virus (HSV) infection Kidney stone 05/2020 Kidney stone 06/07/2020 Ovarian cyst PMH - PAST MEDICAL HISTORY OF ARTHRITIS PMH - PAST MEDICAL HISTORY OF ULCERS TREATED WITH ANTACIDS AGES 14-16 depression Seizure (HCC) Trauma PAST SURGICAL HISTORY Procedure Laterality Date DILATION AND CURETTAGE DXAND/THER NONOBSTETRIC Dilation AND curettage INSERTION OF IUD 12/15/2016 PAST SURGICAL HISTORY OF Left 2020 Kidney stone removal FAMILY HISTORY Problem Relation Age of Onset None Mother Diabetes Father Alcohol/Drug Maternal Uncle ETOH Alcohol/Drug Maternal Uncle ETOH Breast Cancer Other MGAUNT SOCIAL HISTORY Social History Tobacco Use Smoking status: Former Years: 6.00 Types: Cigarettes Quit date: 02/20/2011 Years since quittin.9 Smokeless tobacco: Never Vaping Use Vaping Use: current everyday user Substances: Nicotine Substance Use Topics Alcohol use: No Drug use: Not Currently Comment: NO DRUG USE X 11 MONTHS,ECSTACY IN PAST REVIEW OF SYSTEMS Abdomen: No abdominal pain, nausea, vomiting, diarrhea, or constipation. No bloating, early satiety, indigestion, or increased flatulence. Bladder: No dysuria, gross hematuria, urinary frequency, urinary urgency, or incontinence. Breast: No breast lumps, nipple d/c, overlying skin changes, redness or skin retraction. Allergies and current medication updated:Yes EXAM: BP 98/72 Ht 5' 7.126 (1.71m) Wt 183 lb (83.0kg) LMP 01/03/2022 BMI 28.55 kg/(m2). GENERAL: pleasant, female in no apparent distress HEENT: Normocephalic, atraumatic, mucus membranes moist, and no lesions NECK: Supple, full range of motion, no adenopathy, and thyroid normal DERMATOLOGY: Normal, without lesions, non-icteric, and non-hirsute BREAST: soft, non-tender, symmetric, no dominant mass, normal nipple-areolar complex, no lymphadenopathy, and no nipple discharge CHEST: Normal inspiratory effort ABDOMEN: soft, non-tender, and no masses PELVIC: external genitalia normal, normal Bartholin's glands, urethra, [place]'s glands, no vulvar lesions, no cervical lesions, good vaginal support, physiologic discharge present, normal appearing perineal body and perianal region, IUD string NOT seen BIMANUAL: uterus normal size, shape and consistency, no adnexal masses, and non-tender RECTOVAGINAL: deferred. NEURO: alert and oriented x3,exam grossly non-focal EXTREMITIES: normal ASSESSMENT/PLAN: 1) Health maintenance: Pap done with HPV. Mammogram starting age 40. Nutrition, exercise and routine health maintenance exams reviewed. Calcium/Vitamin D supplementation information provided. 2) Contraception: IUD. Contraceptive options reviewed and information provided. 3) STD screening: Accepts full STD screeening including HIV, Syphilis and Hepatitis. 4) Follow up one year or sooner as needed 5) Order place to remove /replace Mirena IUD Marisabel Whatley APRN.[facility] 01-19-2022 History of Presen t illness Narrative Mariel is a 36 year old who presents for an annual gynecologic exam with complaints, periods have started back up and she would like to have the Mirena change out. . Menses: having monthly periods Contraception: IUD HPV vaccine: No Last Pap: 06/10/2020 abnormal, [facility]-H HPV: 06/10/2020 positive 16 History of abnormal pap: Yes LEEP 2020 Last mammogram: never Sexually active: Yes OB History T1 L2 SAB2 IAB0 Ectopic0 Multiple0 Live Births2 Valve Tester History LMP: 01/03/2022 (Within Days), IUD Age at Menarche: Age at First : Age at Menopause: Valve Tester History Comments: Sexual Activity: Yes; Male Contraception: Condom, I.U.D. PAST MEDICAL HISTORY Diagnosis Date Dysthymic disorder Depression (non-psychotic) Herpes simplex virus (HSV) infection Kidney stone 05/2020 Kidney stone 06/07/2020 Ovarian cyst PMH - PAST MEDICAL HISTORY OF ARTHRITIS PMH - PAST MEDICAL HISTORY OF ULCERS TREATED WITH ANTACIDS AGES 14-16 depression Seizure (HCC) Trauma PAST SURGICAL HISTORY Procedure Laterality Date DILATION & CURETTAGE DX&/THER NONOBSTETRIC Dilation & curettage INSERTION OF IUD 12/15/2016 PAST SURGICAL HISTORY OF Left 2020 Kidney stone removal FAMILY HISTORY Problem Relation Age of Onset None Mother Diabetes Father Alcohol/Drug Maternal Uncle ETOH Alcohol/Drug Maternal Uncle ETOH Breast Cancer Other MGAUNT SOCIAL HISTORY Social History Tobacco Use Smoking status: Former Years: 6.00 Types: Cigarettes Quit date: 02/20/2011 Years since quittin.9 Smokeless tobacco: Never Vaping Use Vaping Use: current everyday user Substances: Nicotine Substance Use Topics Alcohol use: No Drug use: Not Currently Comment: NO DRUG USE X 11 MONTHS,ECSTACY IN PAST REVIEW OF SYSTEMS Abdomen: No abdominal pain, nausea, vomiting, diarrhea, or constipation. No bloating, early satiety, indigestion, or increased flatulence. Bladder: No dysuria, gross hematuria, urinary frequency, urinary urgency, or incontinence. Breast: No breast lumps, nipple d/c, overlying skin changes, redness or skin retraction. Allergies and current medication updated:Yes EXAM: BP 98/72 Ht 5' 7.126 (1.71m) Wt 183 lb (83.0kg) LMP 01/03/2022 BMI 28.55 kg/(m^2). GENERAL: pleasant, female in no apparent distress HEENT: Normocephalic, atraumatic, mucus membranes moist, and no lesions NECK: Supple, full range of motion, no adenopathy, and thyroid normal DERMATOLOGY: Normal, without lesions, non-icteric, and non-hirsute BREAST: soft, non-tender, symmetric, no dominant mass, normal nipple-areolar complex, no lymphadenopathy, and no nipple discharge CHEST: Normal inspiratory effort ABDOMEN: soft, non-tender, and no masses PELVIC: external genitalia normal, normal Bartholin's glands, urethra, [place]'s glands, no vulvar lesions, no cervical lesions, good vaginal support, physiologic discharge present, normal appearing perineal body and perianal region, IUD string NOT seen BIMANUAL: uterus normal size, shape and consistency, no adnexal masses, and non-tender RECTOVAGINAL: deferred. NEURO: alert and oriented x3,exam grossly non-focal EXTREMITIES: normal ASSESSMENT/PLAN: 1) Health maintenance: Pap done with HPV. Mammogram starting age 40. Nutrition, exercise and routine health maintenance exams reviewed. Calcium/Vitamin D supplementation information provided. 2) Contraception: IUD. Contraceptive options reviewed and information provided. 3) STD screening: Accepts full STD screeening including HIV, Syphilis and Hepatitis. 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 Given continued and worsening symptoms would benefit from minimum of EKG, which is not performed here in clinic. Referred to ED Declines EMS Significant other to take to [place]. ER Passport filled out. documented in this encounter [facility] documented as of this encounter (statuses as of 09/15/2021) [facility] History of Past illness Narrative* Problem Noted Date Resolved Date Encounter for supervision of other normal , first trimester 08/05/2015 09/28/2017 Overview: Boy on us- Harshad Nausea and vomiting of , antepartum 09/28/2017 Dog bite of hand 03/14/2012 03/09/2015 Cellulitis of hand, right 03/14/20122015 Supervision of other high-risk (V23.89) 2006 03/09/2015 Supervision of other normal 05/24/2006 03/09/2015 documented as of this encounter (statuses as of 01/19/2022) [facility] of Past illness Narrative* Problem Noted Date Resolved Date Encounter for supervision of other normal , first trimester 08/05/2015 09/28/2017 Overview: Boy on us- Harshad Nausea and vomiting of , antepartum 09/28/2017 Dog bite of hand 03/14/2012 03/09/2015 Cellulitis of hand, right 03/14/20122015 Supervision of other high-risk (V23.89) 2006 03/09/2015 Supervision of other normal 05/24/2006 03/09/2015 documented as of this encounter (statuses as of 06/20/2022) [facility] History of Past illness Narrative* Problem Noted Date Resolved Date Encounter for supervision of other normal , first trimester 08/05/2015 09/28/2017 Overview: Boy on us- Harshad Nausea and vomiting of , antepartum 09/28/2017 Dog bite of hand 03/14/2012 03/09/2015 Cellulitis of hand, right 03/14/20122015 Supervision of other high-risk (V23.89) 2006 03/09/2015 Supervision of other normal 05/24/2006 03/09/2015 documented as of this encounter (statuses as of 07/18/2022) [facility] of Past illness Narrative* Problem Noted Date Resolved Date Encounter for supervision of other normal , first trimester 08/05/2015 09/28/2017 Overview: Boy on us- Harshad Nausea and vomiting of , antepartum 09/28/2017 Dog bite of hand 03/14/2012 03/09/2015 Cellulitis of hand, right 03/14/20122015 Supervision of other high-risk (V23.89) 2006 03/09/2015 Supervision of other normal 05/24/2006 03/09/2015 documented as of this encounter (statuses as of 08/25/2022) [facility] of [facility] illness Narrative* Problem Noted Date Resolved Date Encounter for supervision of other normal , first trimester 08/05/2015 09/28/2017 Overview: Boy on - Harshad Nausea and vomiting of , antepartum 09/28/2017 Dog bite of hand 03/14/2012 03/09/2015 Cellulitis of hand, right 03/14/20122015 Supervision of other high-risk (V23.89) 2006 03/09/2015 Supervision of other normal 05/24/2006 03/09/2015 documented as of this encounter (statuses as of 08/25/2022) [facility] of [facility] illness Narrative* Problem Noted Date Diagnosed Date Resolved Date Encounter for supervision of other normal , first trimester 08/05/2015 09/28/2017 Overview: Boy on - Harshad Nausea and vomiting of , antepartum 6 09/28/2017 Dog bite of hand 03/14/2012 03/09/2015 Cellulitis of hand, right 03/14/2012 Supervision of other high-ri sk (V23.89) 2006 03/09/2015 Supervision of other normal 05/24/2006 03/09/2015 documented as of this encounter (statuses as of 09/30/2022) [facility] illness Narrative* Problem Noted Date Diagnosed Date Resolved Date Encounter for supervision of other normal , first trimester 08/05/2015 09/28/2017 Overview: Boy on us- Harshad Nausea and vomiting of , antepartum 6 09/28/2017 Dog bite of hand 03/14/2012 03/09/2015 Cellulitis of hand, right 03/14/2012 Supervision of other high-ri sk (V23.89) 2006 03/09/2015 Supervision of other normal 05/24/2006 03/09/2015 documented as of this encounter (statuses as of 11/03/2022) [facility] of [facility] illness Narrative* Problem Noted Date Diagnosed Date Resolved Date Encounter for supervision of other normal , first trimester 08/05/2015 09/28/2017 Overview: Boy on us- Harshad Nausea and vomiting of , antepartum 6 09/28/2017 Dog bite of hand 03/14/2012 03/09/2015 Cellulitis of hand, right 03/14/2012 Supervision of other high-ri sk (V23.89) 2006 03/09/2015 Supervision of other normal 05/24/2006 03/09/2015 documented as of this encounter (statuses as of 11/20/2022) [facility] Narrative* Problem Noted Date Diagnosed Date Resolved Date Encounter for supervision of other normal , first trimester 08/05/2015 09/28/2017 Overview: Boy on us- Harshad Nausea and vomiting of , antepartum 6 09/28/2017 Dog bite of hand 03/14/2012 03/09/2015 Cellulitis of hand, right 03/14/2012 Supervision of other high-ri sk (V23.89) 2006 03/09/2015 Supervision of other normal 05/24/2006 03/09/2015 documented as of this encounter (statuses as of 12/12/2022) [facility] of Past illness Narrative* Problem Noted Date Diagnosed Date Resolved Date Encounter for supervision of other normal , first trimester 08/05/2015 09/28/2017 Overview: Boy on us- Harshad Nausea and vomiting of , antepartum 6 09/28/2017 Dog bite of hand 03/14/2012 03/09/2015 Cellulitis of hand, right 03/14/2012 Supervision of other high-ri sk (V23.89) 2006 03/09/2015 Supervision of other normal 05/24/2006 03/09/2015 documented as of this encounter (statuses as of 12/23/2022) [facility] of [facility] illness Narrative* Problem Noted Date Diagnosed Date Resolved Date Encounter for supervision of other normal , first trimester 08/05/2015 09/28/2017 Overview: Boy on - Harshad Nausea and vomiting of , antepartum 6 09/28/2017 Dog bite of hand 03/14/2012 03/09/2015 Cellulitis of hand, right 03/14/2012 Supervision of other high-ri sk (V23.89) 2006 03/09/2015 Supervision of other normal 05/24/2006 03/09/2015 documented as of this encounter (statuses as of 01/19/2023) [facility] Diagnosis Racing heart beat- Primary Tachycardia, unspecified [facility] Diagnosis Encounter for gynecological examination (general) (routine) without abnormal findings- Primary Screening for cervical cancer Screening for malignant neoplasm of the cervix Encounter for screening for human papillomavirus (HPV) Special screening examination for human papillomavirus (HPV) Screen for STD (sexually transmitted disease) Screening examination for venereal disease Irregular menstrual cycle [facility] Diagnosis Sore throat- Primary Acute pharyngitis [facility] Diagnosis Medication management- Primary Encounter for long-term (current) use of other medications Screening for diabetes mellitus Encounter for lipid screening for cardiovascular disease Screening for lipoid disorders Right wrist pain Pain in joint, forearm Attention deficit hyperactivity disorder (ADHD), combined type Fatigue, unspecified type [facility] Diagnosis Attention deficit hyperactivity disorder (ADHD), combined type documented in this encounter [facility]* Diagnosis Attention deficit hyperactivity disorder (ADHD), combined type documented in this encounter [facility] note* Diagnosis Attention deficit hyperactivity disorder (ADHD), combined type documented in this encounter [facility] note* Diagnosis Attention deficit hyperactivity disorder (ADHD), combined type documented in this encounter [facility] note* Diagnosis Attention deficit hyperactivity disorder (ADHD), combined type [facility] Outpatient Procedure (Routine) - Pending Review Specialty Diagnoses / Procedures Referred By Contac t Referred To Contact [facility] Diagnoses Irregular menstrual cycle Procedures REMOVE INTRAUTERINE DEVICE REMOVE INTRAUTERINE DEVICE Marisabel Whatley APRN.CNP [address] [facility] [place] [address] [id number] Referral ID Status Reason Start Date Expiration Date Visits Requested Visits Authorized [id number] Pending Review Auto-Generat ed Referral 01/19/2022 01/19/2023 1 1 * Outpatient Procedure (Routine) - Pending Review Specialty Diagnoses / Procedures Referred By Contac t Referred To Contact [facility] Diagnoses Irregular menstrual cycle Procedures INSERT INTRAUTERINE DEVICE LEVONORGESTREL IU 52MG 5 YR INSERT INTRAUTERINE DEVICE Marisabel Whatley APRN.CNP [address] [place] [address] [address] Referral ID Status Reason Start Date Expiration Date Visits Requested Visits Authorized [id number] Pending Review Auto-Generat ed Referral 01/19/2022 01/19/2023 1 1 [facility] for referral (narrative)* Diagnostic Procedure Only (Routine) - Pending Review Specialty Diagnoses / Procedures Referred By Contac t Referred To Contact XR IMAGING Diagnoses Right wrist pain Procedures XR WRIST GENERAL 3V PA/LAT/OBL RIGHT RADEX WRIST COMPLETE MINIMUM 3 VIEWS Yancy Barcenas APRN.GUEST EXPERIENCE MANAGER [address] [place] [address] Xr Imaging Referral ID Status Reason Start Date Expiration Date Visits Requested Visits Authorized [id number] Pending Review Auto-Generat ed Referral 07/18/2022 08/17/2023 1 1 [facility] Reason for Referral Specialty Diagnoses / Procedures Referred By Janie shahid Referred To Contact Diagnoses Attention deficit hyperactivity disorder (ADHD), combined type Yancy Barcenas APRN.CNP [address] [place] [address] Referral ID Status Reason Start Date Expiration Date Visits Re quested Visits Authorized [id number] Closed 1 1 Summary Purpose Family History No Family History Records Found Advance Directives No Advanced Directives Records Found Additional Source Comments Source Comments (unrecognize d section and content) In the event this informatio n is protected by the Federal Confidentiality of Alcohol and Drug Abuse Patient Records regulations: The Federal rules restrict any use of the information to criminally investigate or prosecute any alcohol or drug abuse patient.[facility] the event this information is protected by the Federal Confidentiality of Alcohol and Drug Abuse Patient Records regulations: The Federal rules restrict any use of the information to criminally investigate or prosecute any alcohol or drug abuse patient.[facility] the event this information is protected by the Federal Confidentiality of Alcohol and Drug Abuse Patient Records regulations: The Federal rules restrict any use of the information to criminally investigate or prosecute any alcohol or drug abuse patient.[facility] the event this information is protected by the Federal Confidentiality of Alcohol and Drug Abuse Patient Records regulations: The Federal rules restrict any use of the information to criminally investigate or prosecute any alcohol or drug abuse patient.[facility] the event this information is protected by the Federal Confidentiality of Alcohol and Drug Abuse Patient Records regulations: The Federal rules restrict any use of the information to criminally investigate or prosecute any alcohol or drug abuse patient.[facility] the event this information is protected by the Federal Confidentiality of Alcohol and Drug Abuse Patient Records regulations: The Federal rules restrict any use of the information to criminally investigate or prosecute any alcohol or drug abuse patient.[facility] the event this information is protected by the Federal Confidentiality of Alcohol and Drug Abuse Patient Records regulations: The Federal rules restrict any use of the information to criminally investigate or prosecute any alcohol or drug abuse patient.[facility] the event this information is protected by the Federal Confidentiality of Alcohol and Drug Abuse Patient Records regulations: The Federal rules restrict any use of the information to criminally investigate or prosecute any alcohol or drug abuse patient.[facility] the event this information is protected by the Federal Confidentiality of Alcohol and Drug Abuse Patient Records regulations: The Federal rules restrict any use of the information to criminally investigate or prosecute any alcohol or drug abuse patient.[facility] the event this information is protected by the Federal Confidentiality of Alcohol and Drug Abuse Patient Records regulations: The Federal rules restrict any use of the information to criminally investigate or prosecute any alcohol or drug abuse patient.[facility] the event this information is protected by the Federal Confidentiality of Alcohol and Drug Abuse Patient Records regulations: The Federal rules restrict any use of the information to criminally investigate or prosecute any alcohol or drug abuse patient.[facility] the event this information is protected by the Federal Confidentiality of Alcohol and Drug Abuse Patient Records regulations: The Federal rules restrict any use of the information to criminally investigate or prosecute any alcohol or drug abuse patient.[facility] System[facility] the event this information is protected by the Federal Confidentiality of Alcohol and Drug Abuse Patient Records regulations: The Federal rules restrict any use of the information to criminally investigate or prosecute any alcohol or drug abuse patient.[facility] Reason for Visit (unrecogniz ed section and content) Reason Comments Well Woman Reason Comments Sore Throat R ear pain x1 week Reason Comments Establish Care Reason Comments Results Reason Onset Date Comments Refill Request 08/21/2022 Refill Request 08/24/2022 Reason Onset Date Comments Refill Request 09/29/2022 Reason Onset Date Comments Refill Request 11/03/2022 Reason Comments Covid19 Concern Reason Onset Date Comments Refill Request 12/11/2022 Reason Onset Date Comments Refill Request 01/17/2023 Care Teams (unrecognized sec tion and content) Machine Operators Relationship Specialty Start Date End Date Yancy Barcenas APRN.GUEST EXPERIENCE MANAGER [address] [place] [phone] PCP - General Family Medicine 07/18/22 Machine Operators Relationship Specialty Start Date End Date Yancy Barcenas APRN.GUEST EXPERIENCE MANAGER [address] [place] [phone] PCP - General Family Medicine 07/18/22 Machine Operators Relationship Specialty Start Date End Date Yancy Barcenas APRN.GUEST EXPERIENCE MANAGER [address] [place] [phone] PCP - General Family Medicine 07/18/22 Machine Operators Relationship Specialty Start Date End Date Yancy Barcenas APRN.GUEST EXPERIENCE MANAGER [address] [place] [phone] PCP - General Family Medicine 07/18/22 Machine Operators Relationship Specialty Start Date End Date Yancy Barcenas APRN.GUEST EXPERIENCE MANAGER [address] [place] [address] [phone] PCP - General Family Medicine 07/18/22 Machine Operators Relationship Specialty Start Date End Date Yancy Barcenas APRN.GUEST EXPERIENCE MANAGER [address] [place] [phone] PCP - General Family Medicine 07/18/22 Machine Operators Relationship Specialty Start Date End Date Yancy Barcenas APRN.GUEST EXPERIENCE MANAGER [address] [place] [phone] PCP - General Family Medicine 07/18/22 Machine Operators Relationship Specialty Start Date End Date Yancy Barcenas APRN.GUEST EXPERIENCE MANAGER [address] [place] [address] PCP - General Family Medicine 07/18/22 INFORMATION SOURCE (unrecogn ized section and content) FOR RECORDS PERTAINING TO PATIENTS WHO ARE OR HAVE BEEN ENROLLED IN A CHEMICAL DEPENDENCY/SUBSTANCEABUSE PROGRAM, SOME INFORMATION MAY BE OMITTED. This clinical summary was aggregated from multiple sources. Caution should be exercised in using it in the provision of clinical care. This summary normalizes information from multiple sources, and as a consequence, information in this document may materially change the coding, format and clinical context of patient data. In addition, data may be omitted in some cases. CLINICAL DECISIONS SHOULD BE BASED ON THE PRIMARY CLINICAL RECORDS. [employer] provides no warranty or guarantee of the accuracy or completeness of information in this document.
[2023-02-25 04:29] LABS: Absolute Lymphocyte Count 4.15 X10^3/uL (0.83-4.51); Absolute Neutrophil Count 6.6 X10^3/uL (2.0-7.7); Basophil# 0.07 X10^3/uL; Basophil% 0.6 % (0-1); Eosinophils% 1.7 % (0-5); Hematocrit 42.2 % (37-47); Lymphocyte # 4.15 X10^3/ul (0.83-4.51); Lymphocyte % 34.9 % (19-41); Mean Corp Hgb Conc 33.2 g/dL (32-36); Mean Corpuscular Hgb 29.6 pg (27.0-32.0); Mean Corpuscular Volume 89.2 fL (81-99); Mean Platelet Vol. 9.2 fl (6.2-12.0); Monocyte# 0.86 X10^3/uL; Monocyte% 7.2 % (0-10); NRBC Flagged by Analyzer 0 % (0-5); Neutrophil # 6.58 X10^3/uL (2.7-7.7); Neutrophil % 55.3 % (47-70); Platelet Count 344 K/mm3 (150-450); RBC Distribution Width CV 11.8 % (11.6-14.6); RBC Distribution Width SD 38.2 fl (35.1-43.9); Red Blood Count 4.73 M/mm3 (4.2-5.4); White Blood Count 11.9 K/mm3 (4.4-11.0)
[2023-02-25] MEDS: Ondansetron 4 MG/2 ML Vial IV (04:29)
[2023-02-25] MEDS: Ketorolac 30 MG/ML Syringe IV (04:29)
[2023-02-25] MEDS: Morphine 4 MG/ML Syringe IV (04:29)
[2023-02-25] MEDS: 0.9% Normal Saline (1000mL) 1,000 ML 150 ML IV (04:29)
[2023-02-25 04:32] LABS: Internal QC Validated? YES +Cl - CLEAR BKGD; Pregnancy, Serum, hCG Quali. NEGATIVE Negative
[2023-02-25 04:37] LABS: Anion Gap 6 (5-15); BUN 7 mg/dL (7-18); BUN/Creat Ratio 10.6 RATIO (10-20); Calcium,Total 9.1 mg/dL (8.5-10.1); Chloride 108 mmol/L (98-107); Creatinine, Serum 0.66 mg/dL (0.55-1.02); EST Glomerular Filtration Rate 107 mL/min (>60); Est Glom Filt Rate - Afr Amer 130 mL/min (>60); Estimated Creatinine Clearance 114.59 ml/min; Glucose 76 mg/dL (74-106); Potassium 3.7 mmol/L (3.5-5.1); Sodium Level 142 mmol/L (136-145)
[2023-02-25 05:48] LABS: Mucous, Urine 0 SEEN /hpf (<or=2+); Red Blood Cells-Urine 0 SEEN /hpf (0-5)
[2023-02-25 05:49] LABS: Color, Urine Yellow (Yellow); Glucose, Dipstick Normal (Normal); Ketone-Dipstick Negative (Negative); Leukocyte Esterase-Dipstick 100 /ul (Negative); Nitrite-Dipstick Positive (Negative); Occult Blood-Urine 10 /ul (Negative); Protein-Dipstick 15 mg/dl (Negative); Urine Bilirubin Dipstick Negative (Negative); Urine Clarity Sl. Cloudy (Clear); Urine Urobilinogen Normal (Normal); Urine pH 6.5 (5.0 - 8.0)
[2023-02-25 07:01] LABS: Bacteria 2+ /hpf (None Seen); Squamous Epithelial Cells - UA 5-10 SEEN /hpf (5-10); White Blood Cells 0-5 SEEN /hpf (0-5)
[2023-02-25] MEDS: Smz/Tmp Ds Tablet 1 TABLET PO (07:34)
[2023-02-25 07:38] VITALS: RESP 16
== END 2023-02-25 07:39 | disposition home or self-care (01) ==
PROVIDERS: Emergency Provider Emergency Medicine; Visit Provider Emergency Medicine
DX: N12 Tubulo-interstitial nephritis, not specified as acute or chronic (principal); F17.210 Nicotine dependence, cigarettes, uncomplicated; F17.290 Nicotine dependence, other tobacco product, uncomplicated; Z87.442 Personal history of urinary calculi
CPT/HCPCS: 74176; 80048; 81001; 84703; 85025; 96361; 96374; 96375; 99283; J7030; A4216; J2405

== ENCOUNTER 2023-03-07 23:06 | Observation (INO) | payer MEDICAID, SELFPAY ==
[2023-03-07 23:08] VITALS: BP 102/71; PULSE 80; RESP 15; TEMP 36.7; O2SAT 98; BMI 24.3
--- NOTE | 2023-03-07 23:27 | EX.ED.DYSGE1 ---
HPI <Dr. Krish Blount DO - Last Filed: 03/08/23 02:26> History of Present Illness Chief Complaint: Flank Pain Informant: patient and spouse/S.O. Narrative Narrative: 37-year-old female presenting to the emergency room with bilateral (left greater than right flank pain and left lower abdominal pain. Patient states she was seen here last week (25 February) and was diagnosed with pyelonephritis started on Bactrim which she is currently still taking. She states that she got better but last night started to feel short of breath. She states that she developed flank/back pain in the left lower abdominal pain about 2 hours ago. She notes multiple episodes of emesis. Normal bowel movements. No fevers. She notes a history of kidney stones as well as ovarian cyst. She states she had surgery for kidney stone about a year and a half 2 years ago. She states nothing seems to make the pain better or worse. She denies cough runny nose rash. PFSH <Dr. Krish Blount DO - Last Filed: 03/08/23 02:26> [facility] Medical History Kidney stones Migraines Smoker Home Medications lisdexamfetamine 30 mg capsule (Vyvanse) 30 mg PO DAILY ADHD 02/25/23 [History Last Taken 03/06/23] sulfamethoxazole 800 mg-trimethoprim 160 mg tablet (Bactrim DS) 1 tab PO BID ANTIBIOTIC 03/08/23 [History Last Taken 03/07/23] Allergy/AdvReac Type Severity Reaction Status Date / Time shrimp Allergy Mild Swelling Verified 03/07/23 23:14 hydrocodone [From [place]] AdvReac Nausea Verified 03/07/23 23:14 Social History Smoking Status: Current every day smoker tobacco type: e-cigarettes ROS <Dr. Krish Blount DO - Last Filed: 03/08/23 02:26> ROS ED Constitutional Constitutional ED: Denies chills, fever(s) or weight loss Eyes Eyes: Denies change in vision or diplopia ENT ENT ED: Denies ear pain, rhinorrhea or sore throat Cardiovascular Cardiovascular: Denies chest pain, orthopnea, palpitations or racing heartbeat Respiratory/Chest Respiratory/Chest: Denies cough, dyspnea or orthopnea Gastrointestinal Gastrointestinal: Reports abdominal pain, nausea and vomiting; Denies diarrhea Genitourinary Genitourinary ED: Denies dysuria, hematuria or urinary frequency Musculoskeletal Musculoskeletal: Reports back pain; Denies arthralgias or myalgias Integumentary Denies abscess or rash Neurologic Neurologic: Denies headache(s) or weakness Psychiatric Psychiatric: Denies anxiety, depression, suicidal ideation or suicidal thoughts Endocrine Endocrinology: Denies polydipsia, polyphagia or polyuria Allergic/Immunologic Allergic/Immunologic ED: Denies mouth swelling, tongue swelling or urticaria EXAM <Dr. Krish Blount, DO - Last Filed: 03/08/23 02:26> Physical Exam Narrative Exam Narrative: Patient appears uncomfortable moving around frequently in the bed holding her left flank. She does not appear acutely dyspneic. Const Vital Signs: 03/07/23 23:08 03/08/23 01:24 03/08/23 05:57 Temperature 98.0 F 97 F L 97.5 F L Temperature Source Temporal Temporal Temporal Pulse Rate 80 63 63 Respiratory Rate 15 16 16 Blood Pressure 102/71 96/53 L 97/60 Blood Pressure Mean 81 67 72 Pulse Ox 98 99 98 Oxygen Delivery Method Room Air Room Air Room Air 03/08/23 10:37 Temperature Temperature Source Pulse Rate Respiratory Rate Blood Pressure 96/62 Blood Pressure Mean 73 Pulse Ox Oxygen Delivery Method Positive well nourished and well developed General Appearance ED: well developed HEENT Reports normocephalic, head/scalp atraumatic and moist mucous membranes Eyes PERRL and EOMs intact bilaterally Neck no lymphadenopathy, supple and no JVD Resp normal respiratory effort and clear to auscultation bilaterally Cardio regular rate, regular rhythm and no murmurs GI Inspection: Negative for abdominal distention Auscultation: normoactive bowel sounds Palpation: soft and tender LLQ and LUQ; Negative for guarding or rebound tenderness present Back/Spine normal ROM Back/Spine Narrative: Continue whole back from about T10 into the lumbar region is diffusely tender but specifically more so left CVA region. General Back: CVA tenderness bilateral Extremity normal to inspection General Extremety ED: Negative for edema General Extremity: Negative for edema Neuro oriented x3 and CN's II-XII intact bilaterally Sensorium / Orientation: alert Motor Exam: strength 5/5 throughout Psych mental status grossly normal Mood & Affect: Negative for depressed or tearful Skin no rashes or lesions noted and no wounds <Dr. Katherin Loyola, DO - Last Filed: 03/08/23 10:50> Physical Exam Const Vital Signs: 03/07/23 23:08 03/08/23 01:24 03/08/23 05:57 Temperature 98.0 F 97 F L 97.5 F L Temperature Source Temporal Temporal Temporal Pulse Rate 80 63 63 Respiratory Rate 15 16 16 Blood Pressure 102/71 96/53 L 97/60 Blood Pressure Mean 81 67 72 Pulse Ox 98 99 98 Oxygen Delivery Method Room Air Room Air Room Air 03/08/23 10:37 Temperature Temperature Source Pulse Rate Respiratory Rate Blood Pressure 96/62 Blood Pressure Mean 73 Pulse Ox Oxygen Delivery Method MDM <Dr. Krish Blount, DO - Last Filed: 03/08/23 02:26> MDM MDM Narrative Medical decision making narrative: Very broad differential for this patient including but not limited to splenic infarct failure of outpatient treatment of pyelonephritis pulmonary embolism pneumonia with referred pain ureterolithiasis pancreatitis kidney stones renal abscess. White count 8.8 platelet count 368 hemoglobin 13.6. Normal lipase. ALT at 122 AST of 63 alkaline phosphatase 84. Total bilirubin 0.3. CTA of the chest was obtained which does not demonstrate pulmonary embolism infiltrate or effusion to suggest a referred pain pattern. CT abdomen pelvis demonstrates some pericholecystic fluid. No renal abscess or other pathology noted to explain her pain Patient received morphine Zofran and fluids. Repeat examination finds her to be feeling significantly better. I talked about the above findings. She tells me that she has had episodes of vomiting. She has attributed these to kidney pains. She states sometimes they get better and she does not need to come to emergency. I performed a bedside ultrasound which demonstrates some minimal tenderness over the gallbladder. I do not see any large amount of pericholecystic fluid. I do however believe I see gallbladder stones with shadowing. At this hour of the night ultrasound will be in and just a few short hours. She has been resting comfortably. I talked with her about obtaining a gallbladder ultrasound in the morning and then discussing with the surgeon. She is comfortable with this plan. History & Record Review Discussion w/independent historian: Patient and Significant other Additional record(s) reviewed:: Prior outpatient record, Prior ED visit and Prior labs Lab Data Attestation: I reviewed the patient's lab results. Labs: Laboratory Results - last 24 hr 03/07/23 03/07/23 03/08/23 23:15 23:59 06:10 WBC 8.8 8.7 RBC 4.53 4.02 L Hgb 13.6 12.1 Hct 40.9 36.2 L MCV 90.3 90.0 MCH 30.0 30.1 MCHC 33.3 33.4 RDW Std Deviation 38.2 37.9 RDW Coeff of Dimas 11.6 11.5 L Plt Count 368 286 MPV 9.1 9.1 Immature Gran % (Auto) 0.300 0.200 Neut % (Auto) 56.9 57.1 Lymph % (Auto) 32.6 32.8 Bleck[place] % (Auto) 8.4 6.9 Eos % (Auto) 1.1 2.2 Baso % (Auto) 0.7 0.8 Absolute Neuts (auto) 5.0 5.0 Absolute Lymphs (auto) 2.86 2.84 Nucleated RBC % 0 0 Sodium 142 142 Potassium 3.6 3.5 Chloride 109 H 112 H Carbon Dioxide 29.0 28.0 Anion Gap 4 L 2 L BUN 10 8 Creatinine 0.68 0.66 Estim Creat Clear Calc 111.22 114.59 Est GFR (MDRD) Af Amer 126 130 Est GFR (MDRD) Non-Af 104 107 BUN/Creatinine Ratio 14.8 12.1 Glucose 89 88 Calcium 9.1 8.1 L Total Bilirubin 0.30 0.50 Direct Bilirubin 0.20 AST 63 H 46 H ALT 122 H 107 H Alkaline Phosphatase 84 68 Total Protein 6.8 6.0 L Albumin 3.5 3.1 L Globulin 3.3 2.9 Albumin/Globulin Ratio 1.1 Lipase 45 119 H Serum , Qual NEGATIVE Urine Color Yellow Urine Clarity Clear Urine pH 8.0 Ur Specific Fifield 1.015 Urine Protein 15 H Urine Glucose (UA) Normal Urine Ketones Negative Urine Occult Blood Negative Urine Nitrite Negative Urine Bilirubin Negative Urine Urobilinogen Normal Ur Leukocyte Esterase Negative Urine RBC 0 SEEN Urine WBC 0 SEEN Ur Squamous Epith Cells 0 SEEN Amorphous Sediment 2+ Urine Bacteria RARE Urine Mucus 0 SEEN Radiography Diagnostic Testing: Clinical Impression(s) from Imaging Studies Abdomen/Pelvis CT 03/08/23 00:18 IMPRESSION: 1. Findings concerning for acute cholecystitis. Dedicated right upper quadrant ultrasound imaging is recommended for further evaluation. 2. Cysts versus hemangiomas within the liver which could be more completely characterize with MR imaging of the abdomen. 3. Sigmoid colonic diverticulosis without evidence of acute diverticulitis. 4. Appropriately positioned intrauterine device. Electronically Signed: Bucky Bardales MD at 1:18 EST , Chest CTA 03/08/23 00:18 IMPRESSION: 1. No acute cardiac pulmonary disease 2. Cysts versus hemangiomas within the liver which could be more definitively characterize with MR imaging. Electronically Signed: Bucky Bardales MD at 1:38 EST , Gallbladder Ultrasound 03/08/23 02:05 IMPRESSION: 1. Multiple gallstones with thickening of the gallbladder wall. Acute cholecystitis cannot be excluded. 2. Liver cysts. 3. Hepatomegaly. Electronically Signed: Ronald Chaves MD at 8:17 EST , <Dr. Katherin Loyola, DO - Last Filed: 03/08/23 10:50> [facility] MDM Narrative Medical decision making narrative: Very broad differential for this patient including but not limited to splenic infarct failure of outpatient treatment of pyelonephritis pulmonary embolism pneumonia with referred pain ureterolithiasis pancreatitis kidney stones renal abscess. White count 8.8 platelet count 368 hemoglobin 13.6. Normal lipase. ALT at 122 AST of 63 alkaline phosphatase 84. Total bilirubin 0.3. CTA of the chest was obtained which does not demonstrate pulmonary embolism infiltrate or effusion to suggest a referred pain pattern. CT abdomen pelvis demonstrates some pericholecystic fluid. No renal abscess or other pathology noted to explain her pain Patient received morphine Zofran and fluids. Repeat examination finds her to be feeling significantly better. I talked about the above findings. She tells me that she has had episodes of vomiting. She has attributed these to kidney pains. She states sometimes they get better and she does not need to come to emergency. I performed a bedside ultrasound which demonstrates some minimal tenderness over the gallbladder. I do not see any large amount of pericholecystic fluid. I do however believe I see gallbladder stones with shadowing. At this hour of the night ultrasound will be in and just a few short hours. She has been resting comfortably. I talked with her about obtaining a gallbladder ultrasound in the morning and then discussing with the surgeon. She is comfortable with this plan. Patient signed out to me from Dr. Blount, pending right upper quadrant ultrasound. Ultrasounds concerning for acute cholecystitis. Patient is more comfortable but continues to have pain on repeat exam of her right upper quadrant with palpation. Surgical consult is placed and discussed the case with Dr. Harmon. He plans to take the patient for cholecystectomy today. She is given dose of IV Zosyn. Will be admitted to surgical service. Remained hemodynamically stable in the emergency room. Preprocedural EKG ordered per request of surgeon. Shows sinus bradycardia with sinus arrhythmia and incomplete right bundle branch block As interpreted by emergency medicine physician, Dr. Emery. No acute ischemic changes noted. Lab Data Labs: Laboratory Results - last 24 hr 03/07/23 03/07/23 03/08/23 23:15 23:59 06:10 WBC 8.8 8.7 RBC 4.53 4.02 L Hgb 13.6 12.1 Hct 40.9 36.2 L MCV 90.3 90.0 MCH 30.0 30.1 MCHC 33.3 33.4 RDW Std Deviation 38.2 37.9 RDW Coeff of Dimas 11.6 11.5 L Plt Count 368 286 MPV 9.1 9.1 Immature Gran % (Auto) 0.300 0.200 Neut % (Auto) 56.9 57.1 Lymph % (Auto) 32.6 32.8 Bleck[place] % (Auto) 8.4 6.9 Eos % (Auto) 1.1 2.2 Baso % (Auto) 0.7 0.8 Absolute Neuts (auto) 5.0 5.0 Absolute Lymphs (auto) 2.86 2.84 Nucleated RBC % 0 0 Sodium 142 142 Potassium 3.6 3.5 Chloride 109 H 112 H Carbon Dioxide 29.0 28.0 Anion Gap 4 L 2 L BUN 10 8 Creatinine 0.68 0.66 Estim Creat Clear Calc 111.22 114.59 Est GFR (MDRD) Af Amer 126 130 Est GFR (MDRD) Non-Af 104 107 BUN/Creatinine Ratio 14.8 12.1 Glucose 89 88 Calcium 9.1 8.1 L Total Bilirubin 0.30 0.50 Direct Bilirubin 0.20 AST 63 H 46 H ALT 122 H 107 H Alkaline Phosphatase 84 68 Total Protein 6.8 6.0 L Albumin 3.5 3.1 L Globulin 3.3 2.9 Albumin/Globulin Ratio 1.1 Lipase 45 119 H Serum , Qual NEGATIVE Urine Color Yellow Urine Clarity Clear Urine pH 8.0 Ur Specific [place] 1.015 Urine Protein 15 H Urine Glucose (UA) Normal Urine Ketones Negative Urine Occult Blood Negative Urine Nitrite Negative Urine Bilirubin Negative Urine Urobilinogen Normal Ur Leukocyte Esterase Negative Urine RBC 0 SEEN Urine WBC 0 SEEN Ur Squamous Epith Cells 0 SEEN Amorphous Sediment 2+ Urine Bacteria RARE Urine Mucus 0 SEEN Radiography Diagnostic Testing: Clinical Impression(s) from Imaging Studies Abdomen/Pelvis CT 03/08/23 00:18 IMPRESSION: 1. Findings concerning for acute cholecystitis. Dedicated right upper quadrant ultrasound imaging is recommended for further evaluation. 2. Cysts versus hemangiomas within the liver which could be more completely characterize with MR imaging of the abdomen. 3. Sigmoid colonic diverticulosis without evidence of acute diverticulitis. 4. Appropriately positioned intrauterine device. Electronically Signed: Bucky Bardales MD at 1:18 EST , Chest CTA 03/08/23 00:18 IMPRESSION: 1. No acute cardiac pulmonary disease 2. Cysts versus hemangiomas within the liver which could be more definitively characterize with MR imaging. Electronically Signed: Bucky Bardales MD at 1:38 EST , Gallbladder Ultrasound 03/08/23 02:05 IMPRESSION: 1. Multiple gallstones with thickening of the gallbladder wall. Acute cholecystitis cannot be excluded. 2. Liver cysts. 3. Hepatomegaly. Electronically Signed: Ronald Chaves MD at 8:17 EST , Discharge Plan Dx/Rx/DC Orders Clinical Impression: Acute cholecystitis, Bilateral flank pain, Abdominal pain, Vomiting Disposition Disposition: Acute Care Hospital [facility] Discharge Date/Time: 03/08/23 10:46 Capacity <Dr. Krish Blount, DO - Last Filed: 03/08/23 02:26> [employer] Reflex Medical hold order details:: IF a medical hold is selected below, a suggested order for a MEDICAL HOLD will reflex upon signing the document. Next of kin: [place] law dictates a PRIORITY LIST for identifying legal decision-maker/legal next of kin in the following order (LNOK): 1st: The patient?s legal guardian, if any 2nd: The patient's spouse (if status is questionable, consult Risk Management) 3rd: The patient?s adult child(kimberley) (majority, if multiple children) 4th: The patient?s parents 5th: The patient?s adult siblings (majority, if multiple children siblings)
[2023-03-07] MEDS: 0.9% Normal Saline (1000mL) 1,000 ML 1000 ML IV (23:35)
[2023-03-07] MEDS: Ondansetron 4 MG/2 ML Vial IV (23:35)
[2023-03-07] MEDS: Morphine 4 MG/ML Syringe IV (23:35)
[2023-03-07 23:37] LABS: Absolute Lymphocyte Count 2.86 X10^3/uL (0.83-4.51); Basophil# 0.06 X10^3/uL; Basophil% 0.7 % (0-1); Eosinophils% 1.1 % (0-5); Hematocrit 40.9 % (37-47); Hemoglobin 13.6 g/dL (12.0-15.0); Lymphocyte # 2.86 X10^3/ul (0.83-4.51); Lymphocyte % 32.6 % (19-41); Mean Corp Hgb Conc 33.3 g/dL (32-36); Mean Corpuscular Volume 90.3 fL (81-99); Mean Platelet Vol. 9.1 fl (6.2-12.0); Monocyte# 0.74 X10^3/uL; Monocyte% 8.4 % (0-10); NRBC Flagged by Analyzer 0 % (0-5); Neutrophil # 4.97 X10^3/uL (2.7-7.7); Neutrophil % 56.9 % (47-70); Platelet Count 368 K/mm3 (150-450); RBC Distribution Width CV 11.6 % (11.6-14.6); RBC Distribution Width SD 38.2 fl (35.1-43.9); Red Blood Count 4.53 M/mm3 (4.2-5.4); White Blood Count 8.8 K/mm3 (4.4-11.0)
[2023-03-07 23:55] LABS: Internal QC Validated? YES +Cl - CLEAR BKGD; Pregnancy, Serum, hCG Quali. NEGATIVE Negative
[2023-03-08] VITALS (20 sets, daily range): BP systolic 90–117; BP diastolic 53–77; PULSE 54–76; RESP 14–18; TEMP 36.1–36.7; O2SAT 98–100; BMI 24.3
[2023-03-08 00:03] LABS: AST(SGOT) 63 U/L (15-37); Alanine Aminotransfer ALT/SGPT 122 U/L (13-56); Albumin, Serum 3.5 g/dL (3.2-5.0); Alkaline Phosphatase 84 U/L (45-117); Anion Gap 4 (5-15); BUN 10 mg/dL (7-18); BUN/Creat Ratio 14.8 RATIO (10-20); Calcium,Total 9.1 mg/dL (8.5-10.1); Chloride 109 mmol/L (98-107); Creatinine, Serum 0.68 mg/dL (0.55-1.02); EST Glomerular Filtration Rate 104 mL/min (>60); Est Glom Filt Rate - Afr Amer 126 mL/min (>60); Estimated Creatinine Clearance 111.22 ml/min; Globulin 3.3 g/dL (2.2-4.2); Glucose 89 mg/dL (74-106); Lipase 45 U/L (13-75); Potassium 3.6 mmol/L (3.5-5.1); Protein, Total 6.8 g/dL (6.4-8.2); Sodium Level 142 mmol/L (136-145)
[2023-03-08 00:06] LABS: Mucous, Urine 0 SEEN /hpf (<or=2+); Red Blood Cells-Urine 0 SEEN /hpf (0-5); Squamous Epithelial Cells - UA 0 SEEN /hpf (5-10); White Blood Cells 0 SEEN /hpf (0-5)
[2023-03-08 00:08] LABS: Color, Urine Yellow (Yellow); Glucose, Dipstick Normal (Normal); Ketone-Dipstick Negative (Negative); Leukocyte Esterase-Dipstick Negative /ul (Negative); Nitrite-Dipstick Negative (Negative); Occult Blood-Urine Negative /ul (Negative); Protein-Dipstick 15 mg/dl (Negative); Specific Gravity, Urine 1.015 (1.002-1.030); Urine Bilirubin Dipstick Negative (Negative); Urine Clarity Clear (Clear); Urine Urobilinogen Normal (Normal)
[2023-03-08 00:17] LABS: Amorphous Sediment 2+; Bacteria RARE /hpf (None Seen)
--- NOTE | 2023-03-08 00:18 | CT_ITS ---
STUDY: CT ABDOMEN AND PELVIS WITH CONTRAST REASON FOR EXAM: Female, 37 years old. Bilateral flank pain RADIATION DOSAGE (If Supplied By Facility): CTDIvol = ( 11.93 ) mGy, DLP = ( 1378.91 ) mGycm TECHNIQUE: Spiral CT imaging of the abdomen and pelvis was performed with intravenous contrast material (100mL Isovue-370 / ), followed by coronal and sagittal reformatting. Individualized dose optimization techniques were used for this CT. COMPARISON: No relevant priors. FINDINGS: LOWER CHEST: Normal lung bases. Normal heart. Normal pericardium. LIVER: Hypoattenuated lesions scattered throughout the liver measuring near water density. GALLBLADDER AND BILIARY TREE: Moderate fluid distention of the gallbladder. Moderate pericholecystic fluid. Normal biliary ductal system. SPLEEN: Normal PANCREAS: Normal ADRENAL GLANDS: Normal KIDNEYS AND URETERS: Normal kidneys. Normal ureters. BOWEL: Normal stomach. Normal small bowel. Normal appendix. Mild diverticular disease of the sigmoid colon without localized inflammation.. PERITONEUM: No free intraperitoneal air or fluid. No intra-abdominal fluid collection. LYMPH NODES: No mesenteric, retroperitoneal, or pelvic lymphadenopathy. VESSELS: Normal URINARY BLADDER: Normal REPRODUCTIVE ORGANS: Retroverted uterus. Intrauterine device positioned within the endometrial cavity. ABDOMINAL WALL: Normal BONES: Normal CT/Abdomen/Pelvis W IV Cont ONLY IMPRESSION: 1. Findings concerning for acute cholecystitis. Dedicated right upper quadrant ultrasound imaging is recommended for further evaluation. 2. Cysts versus hemangiomas within the liver which could be more completely characterize with MR imaging of the abdomen. 3. Sigmoid colonic diverticulosis without evidence of acute diverticulitis. 4. Appropriately positioned intrauterine device. Electronically Signed: Bucky Bardales MD at 1:18 EST ,
--- NOTE | 2023-03-08 00:18 | CT_ITS ---
STUDY: CTA CHEST REASON FOR EXAM: Female, 37 years old. Dyspnea RADIATION DOSAGE (If Supplied By Facility): CTDIvol = ( 11.93 ) mGy, DLP = ( 1378.91 ) mGycm TECHNIQUE: The examination was performed with the intravenous administration of IV 100mL Isovue-370. Post-processing of the angiographic images was performed, with multiplanar reformation and 3D reconstruction. Individualized dose optimization techniques were used for this CT. COMPARISON: FINDINGS: Normal enhancement of the main pulmonary artery and right and left pulmonary arteries. Normal enhancement of the bilateral peripheral pulmonary arteries. There is no demonstrated pulmonary embolism. Thoracic aorta demonstrates no aneurysmal dilatation or dissection. Conventional arch anatomy.. Normal heart and pericardium. Normal mediastinum. Normal hilar regions. Normal visualized trachea and bronchi. No confluent pulmonary infiltrate. No concerning pulmonary nodule. Mild bilateral dependent atelectasis versus scar formation. No pleural effusion or pneumothorax. Normal chest wall structures. Normal osseous structures. Visualized portions of the upper abdomen demonstrate hypoattenuated lesions in the left lateral pelvic segment and at the liver dome, too small to characterize.. CT/CTA Chest W/WO Contrast IMPRESSION: 1. No acute cardiac pulmonary disease 2. Cysts versus hemangiomas within the liver which could be more definitively characterize with MR imaging. Electronically Signed: Bucky Bardales MD at 1:38 EST ,
--- OUTSIDE RECORDS SUMMARY | 2023-03-08 00:23 | XMS RPT_ITS | CCD ---
Author Name Unknown Address [address] [place] [address] Organization [facility] Care Team Providers Care Stone Unloader Name Role Phone Unavailable Primary Care Provider Unavailsofia Barcenas COMPUTER SUPPORT SPECIALIST.Yancy CARTER Primary Care Provider MARISABEL WHATLEY Referring [...] Translations: [SHELLFISH DERIVED] Drug Allergy 03-14-2012 Anaphylaxis [facility] Work Phone: (12 sources) Acetaminophen / HYDROcodone; Translations: [HYDROCODONE-ACETA MINOPHEN] Drug Allergy 06-19-2022 GI Upset [facility] Medications Current Medications Medication Drug Class(es) Dates [...] unspecified] Chronic Other aftercare (1 source) 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; Translations: [Medication management] Onset: [...] 11:53-0400 Body weight 72.12 kg Yancy Barcenas COMPUTER SUPPORT SPECIALIST.RN ANTE PARTUM Work Phone: [facility] 07-18-2022 11:53-0400 Diastolic blood pressure 66 mm[Hg] Yancy Barcenas COMPUTER SUPPORT SPECIALIST.RN ANTE PARTUM Work Phone: [facility] 07-18-2022 11:53-0400 Heart rate 86 /min Yancy Barcenas COMPUTER SUPPORT SPECIALIST.RN ANTE PARTUM Work Phone: [facility] 07-18-2022 11:53-0400 Respiratory rate 14 /min Yancy Barcenas COMPUTER SUPPORT SPECIALIST.RN ANTE PARTUM Work Phone: [facility] 07-18-2022 11:53-0400 Systolic blood pressure 100 mm[Hg] Yancy Barcenas COMPUTER SUPPORT SPECIALIST.RN ANTE PARTUM Work Phone: [facility] 06-19-2022 17:32-0400 Body temperature 98.01 [degF] Maria Del Carmen Athy PA-C Work Phone: [facility] 06-19-2022 17:32-0400 Body weight 74.84 kg Maria Del Carmen Athy PA-C Work Phone: [facility] 06-19-2022 17:32-0400 Diastolic blood pressure 68 mm[Hg] Maria Del Carmen Athy PA-C Work Phone: [facility] 06-19-2022 17:32-0400 Heart rate 101 /min Maria Del Carmen Athy PA-C Work Phone: [facility] 06-19-2022 17:32-0400 Respiratory rate 18 /min Maria Del Carmen Athy PA-C Work Phone: [facility] 06-19-2022 17:32-0400 SaO2% (BldA) [Mass fraction] 98 % Maria Del Carmen Athy PA-C Work Phone: [facility] 06-19-2022 17:32-0400 Systolic blood pressure 102 mm[Hg] Maria Del Carmen Athy PA-C Work Phone: [facility] 01-19-2022 14:34-0500 Body height 170.5 cm Marisabel Corralescalf COMPUTER SUPPORT SPECIALIST.RN ANTE PARTUM Work Phone: [facility] 01-19-2022 14:34-0500 Body weight 83.01 kg Marisabel Phylicia COMPUTER SUPPORT SPECIALIST.RN ANTE PARTUM Work Phone: [facility] 01-19-2022 14:34-0500 Diastolic blood pressure 72 mm[Hg] Marisabel Phylicia COMPUTER SUPPORT SPECIALIST.RN ANTE PARTUM Work Phone: [facility] 01-19-2022 14:34-0500 Systolic blood pressure 98 mm[Hg] Marisabel Peachland COMPUTER SUPPORT SPECIALIST.RN ANTE PARTUM Work Phone: [facility] Encounters Encounter Date Encounter Type Care Provider Facility Start: 01-17-2023 Refill Yancy Ventura e COMPUTER SUPPORT SPECIALIST.RN ANTE PARTUM Work Phone: [facility] Procedures Date Procedure Procedure Detail Performing Clinician Start: 06-19-2022 STREP A MOLECULAR (POC) Maria Del Carmen Hazel PA-C Work Phone: Start: 10-05-2016 Adult depression screening assessment Pam Moe COMPUTER SUPPORT SPECIALIST.RN ANTE PARTUM Work Phone: Plan of Treatment Date Care Activity Detail Author Start: 01-19-2027 HPV TESTING HPV TESTING [facility] Start: 01-19-2027 PAP TESTING PAP TESTING [facility] Start: 12-09-2025 Urine microalbumin profile [facility] Start: 06-07-2025 HPV TESTING HPV TESTING [facility] Start: 06-07-2025 PAP TESTING PAP TESTING [facility] Start: 07-19-2023 COVID-19 VACCINE (#1) COVID-19 VACCI NE (#1) [facility] Immunizations Immunization Date Immunization Notes Care Provider Fa sri 12-10-2015 tetanus toxoid, redu rylee diphtheria toxoid, and acellular pertussis vaccine, adsorbed Pam Moe COMPUTER SUPPORT SPECIALIST.RAUL Work Phone: [facility] Payers Date Payer Category Payer Medicaid [id number] 2016 [facility] [id number] 2016-Present [phone] [address] [place] [address] Medicaid [id number] 2016 Medicaid [id number] 2016 Medicaid [id number] Social History Date Type Detail Facility Start: 03-14-2012 End: 04-03-2022 Tobacco smoking status NHIS Ex-smoker [facility] Work Phone: End: 02-20-2011 History of tobacco use Current smoker [facility] Work Phone: Start: 03-14-2012 End: 04-03-2022 Tobacco use and exposure Smokeless tobacco non-user [facility] Work Phone: Start: 11-10-2020 End: 06-19-2022 Alcohol intake Current non-drinker of alcohol (finding) [facility] Start: 1985 Sex Assigned At Not on file [facility] Start: 09-05-2021 End: 09-15-2021 Exposure to SARS-CoV-2 (event) Not sure [facility] End: 02-20-2011 History of tobacco use Cigarette Smoker [facility] Work Phone: Start: 06-19-2022 End: 07-18-2022 History of Social function [facility] Work Phone: Start: 06-19-2022 End: 07-18-2022 Tobacco use panel [facility] Work Phone: Adult Depression Screening Assessment 1 [facility] Work Phone: Clinical Notes 08-05-2015 to 01-18-2023 [...] Marilou Schafer RN. documented in this encounter [facility] 12-22-2022 Miscellaneous Notes Please let patient know tox screen only shows amphetamines as appropriate. documented in this encounter [facility] 12-19-2022 Note HNO ID: [id number] Author: Yancy Barcenas APRN.RAUL Service: ? Author [...] TOX SCREEN ROUT UR Yancy Barcenas APRN.RAUL [facility] 12-12-2022 Miscellaneous Notes PDMP reviewed. Patient requested and refilled prescriptions appropriately. No suspicious activity noted. Patient requesting a call when RX is approved and sent to the pharmacy. Please call patient at: [phone] Last refill 11/03/22 Qty: 30 with 0 refills ROSE MARY 07/18/22 NOV 12/19/22 Mitchell Meneses LPN Pharmacy verified in Epic Patient has been identified by name and date of : Yes Patient requesting a call when RX is approved and sent to the pharmacy. Please call patient at: [phone] Patient phones for refill(s): Requested Prescriptions Pending [...] advise. Zee Gutiérrez documented in this encounter [facility] 11-19-2022 Miscellaneous Notes Reason for Call: Covid [...] fever 7. RESPIRATORY STATUS: no distress 8. [id number]: same 9. HIGH RISK DISEASE: none; 10. VACCINE: no 11. BOOSTER: na 12. : LMP 2 weeks ago 13. OTHER SYMPTOMS none 14. O2 SATURATION MONITOR: na Protocols used: Coronavirus (COVID-19) Diagnosed or [id number] documented in this encounter [facility] 11-03-2022 Miscellaneous Notes Pt notified rx has [...] one pill left documented in this encounter [facility] 09-29-2022 Miscellaneous Notes PDMP reviewed, no suspicious [...] Bonnie Melo RN documented in this encounter [facility] 08-24-2022 Miscellaneous Notes Patient active on mychart. Message sent Tammie Rodriguez Cma Please let patient know her wrist xray is normal. documented in this encounter [facility] 08-24-2022 Miscellaneous Notes Patient notified and verbalized understanding Tammie Rodriguez Cma Please call pt when med has [...] advise. Janiya Hilton documented in this encounter [facility] 08-24-2022 Miscellaneous Notes Patient notified and verbalized understanding Tammie Rodriguez Cma Please let patient know her vitamin d is low. She can start an OTC vitamin d supplement 5000 units daily documented in this encounter [facility] 08-23-2022 Note HNO ID: [id number] Author: RT Tiffany(R) Service: ? Author Type: Glue Reel Operator Type: Progress Notes Filed: 08/23/2022 3:16 PM [...] RT Tiffany(R) August 23, 2022 3:08 PM [facility] 07-18-2022 Note HNO ID: [id number] Author: Yancy Barcenas APRN.RN ANTE PARTUM Service: ? Author Type: Nurse Practitioner Type: Progress Notes Filed: 07/18/2022 12:21 PM Note Text: Chief Complaint Patient presents with: Establish Care HPI Mariel Michel is a 36 year old female who presents here today for Above Complaints.. Patient presents to [facility]. 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 [facility] 07-18-2022 Instructions Yancy Barcenas APRN.CNP - 07/18/2022 12:18 PM EDT Start vyvanse 2. Complete labs 3. Follow up in 3 months documented in this encounter [facility] 07-18-2022 History of Presen t illness Narrative Chief Complaint Patient presents with: [facility] HPI Mariel Michel is a 36 year old female who presents here today for Above Complaints.. Patient presents to [facility]. Patient also verbalizes wanting to [...] No history of dysuria, frequency or incontinence PURIFICATION OPERATOR: Negative for abnormal vaginal bleeding, abnormal vaginal [...] HYDROXY - VITAMIN B12 BLOOD Yancy Barcenas APRN.RN ANTE PARTUM documented in this encounter [facility] 06-19-2022 Note HNO ID: [id number] Author: Maria Del Carmen Hazel PA-C Service: ? Author Type: Physician Sausage Mixer Type: Progress Notes Filed: 06/19/2022 6:53 PM Note Text: This note was created using [employer]. Subjective Mariel Michel is a 36 year [...] MOLECULAR (POC) Maria Del Carmen Hazel PA-C [facility] 06-19-2022 History of Presen t illness Narrative This note was created using [employer]. Subjective Mariel Michel is a 36 year [...] Carmen Hazel PA-C documented in this encounter [facility] 04-03-2022 Note HNO ID: [id number] Author: Lucy Villalobos APRN.RN ANTE PARTUM Service: ? Author Type: Nurse Practitioner Type: [...] expected course of illness Lucy Villalobos APRN.CNP [facility] 01-19-2022 Note HNO ID: [id number] Author: Marisabel Whatley APRN.RAUL Service: ? Author [...] L2 SAB2 IAB0 Ectopic0 Multiple0 Live Births2 Reel Worker History LMP: 01/03/2022 (Within Days), IUD Age at Menarche: Age at First : Age at Menopause: Reel Worker History Comments: Sexual Activity: Yes; Male Contraception: [...] external genitalia normal, normal Bartholin's glands, urethra, [place]'s glands, no vulvar lesions, no cervical lesions, [...] to remove /replace Mirena IUD Marisabel Whatley APRN.[facility] 01-19-2022 History of Presen t illness [...] L2 SAB2 IAB0 Ectopic0 Multiple0 Live Births2 Reel Worker History LMP: 01/03/2022 (Within Days), IUD Age at Menarche: Age at First : Age at Menopause: Reel Worker History Comments: Sexual Activity: Yes; Male Contraception: [...] external genitalia normal, normal Bartholin's glands, urethra, [place]'s glands, no vulvar lesions, no cervical lesions, [...] Marisabel Whatley APRN.RAUL documented in this encounter [facility] 09-15-2021 History of Presen t illness Narrative Patient presents with complaints of heart racing, becoming diaphoretic and feeling like she is going to pass out, 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 Given continued and worsening symptoms would benefit from minimum of EKG, which is not performed here in clinic. Referred to ED Declines EMS Significant other to take to [facility]. ER Passport filled out. documented in this encounter [facility] documented as of this encounter (statuses as of 09/15/2021) [facility] History of Past illness Narrative* Problem Noted [...] of this encounter (statuses as of 01/19/2022) [facility] History of Past illness Narrative* Problem Noted [...] of this encounter (statuses as of 06/20/2022) [facility] History of Past illness Narrative* Problem Noted [...] of this encounter (statuses as of 07/18/2022) [facility] History of Past illness Narrative* Problem Noted [...] of this encounter (statuses as of 08/25/2022) [facility] History of Past illness Narrative* Problem Noted [...] of this encounter (statuses as of 08/25/2022) [facility] History of Past illness Narrative* Problem Noted [...] of this encounter (statuses as of 09/30/2022) [facility] History of Past illness Narrative* Problem Noted [...] of this encounter (statuses as of 11/03/2022) [facility] History of Past illness Narrative* Problem Noted [...] of this encounter (statuses as of 11/20/2022) [facility] History of Past illness Narrative* Problem Noted [...] of this encounter (statuses as of 12/12/2022) [facility] History of Past illness Narrative* Problem Noted [...] of this encounter (statuses as of 12/23/2022) [facility] History of Past illness Narrative* Problem Noted [...] of this encounter (statuses as of 01/19/2023) [facility] Diagnosis Racing heart beat- Primary Tachycardia, unspecified [facility] Diagnosis Encounter for gynecological examination (general) (routine) without abnormal findings- Primary Screening for cervical cancer Screening for malignant neoplasm of the cervix Encounter for screening for human papillomavirus (HPV) Special screening examination for human papillomavirus (HPV) Screen for STD (sexually transmitted disease) Screening examination for venereal disease Irregular menstrual cycle [facility] Diagnosis Sore throat- Primary Acute pharyngitis [facility]* Diagnosis Medication management- Primary Encounter for long-term (current) use of other medications Screening for diabetes mellitus Encounter for lipid screening for cardiovascular disease Screening for lipoid disorders Right wrist pain Pain in joint, forearm Attention deficit hyperactivity disorder (ADHD), combined type Fatigue, unspecified type [facility] Diagnosis Attention deficit hyperactivity disorder (ADHD), combined type documented in this encounter [facility] note* Diagnosis Attention deficit hyperactivity disorder (ADHD), combined type documented in this encounter [facility] note* Diagnosis Attention deficit hyperactivity disorder (ADHD), combined type documented in this encounter [facility] note* Diagnosis Attention deficit hyperactivity disorder (ADHD), combined type documented in this encounter [facility] note* Diagnosis Attention deficit hyperactivity disorder (ADHD), combined type [facility] Outpatient Procedure (Routine) - Pending Review Specialty Diagnoses / Procedures Referred By Contac t Referred To Contact [facility] Diagnoses Irregular menstrual cycle Procedures REMOVE INTRAUTERINE DEVICE REMOVE INTRAUTERINE DEVICE Marisabel Whatley APRN.CNP [address] [place] [address] [address] Referral ID Status Reason Start Date Expiration Date Visits Requested Visits Authorized [id number] Pending Review Auto-Generat ed Referral 01/19/2022 01/19/2023 1 1 * Outpatient Procedure (Routine) - Pending Review Specialty Diagnoses / Procedures Referred By Contac t Referred To Contact [facility] Diagnoses Irregular menstrual cycle Procedures INSERT INTRAUTERINE DEVICE LEVONORGESTREL IU 52MG 5 YR INSERT INTRAUTERINE DEVICE Marisabel Whatley APRN.CNP [address] [place] [address] [address] Referral ID Status Reason Start Date Expiration Date Visits Requested Visits Authorized [id number] Pending Review Auto-Generat ed Referral 01/19/2022 01/19/2023 1 1 [facility] for referral (narrative)* Diagnostic Procedure Only (Routine) - Pending Review Specialty Diagnoses / Procedures Referred By Contac t Referred To Contact XR IMAGING Diagnoses Right wrist pain Procedures XR WRIST GENERAL 3V PA/LAT/OBL RIGHT RADEX WRIST COMPLETE MINIMUM 3 VIEWS Yancy Barcenas APRN.RN ANTE PARTUM [address] [place] [address] Xr Imaging Referral ID Status Reason Start Date Expiration Date Visits Requested Visits Authorized [id number] Pending Review Auto-Generat ed Referral 07/18/2022 08/17/2023 1 1 [facility] Reason for Referral Specialty Diagnoses / Procedures Referred By Janie shahid Referred To Contact Diagnoses Attention deficit hyperactivity disorder (ADHD), combined type Yancy Barcenas APRN.CNP [address] [place] [address] Referral ID Status Reason Start Date Expiration Date Visits Re quested Visits Authorized [id number] Closed 1 1 Summary Purpose Family History [...] or prosecute any alcohol or drug abuse patient.[facility] the event this information is protected by the Federal Confidentiality of Alcohol and Drug Abuse Patient Records regulations: The Federal rules restrict any use of the information to criminally investigate or prosecute any alcohol or drug abuse patient.[facility] the event this information is protected by the Federal Confidentiality of Alcohol and Drug Abuse Patient Records regulations: The Federal rules restrict any use of the information to criminally investigate or prosecute any alcohol or drug abuse patient.[facility] the event this information is protected by the Federal Confidentiality of Alcohol and Drug Abuse Patient Records regulations: The Federal rules restrict any use of the information to criminally investigate or prosecute any alcohol or drug abuse patient.[facility] HospitalIn the event this information is protected by the Federal Confidentiality of Alcohol and Drug Abuse Patient Records regulations: The Federal rules restrict any use of the information to criminally investigate or prosecute any alcohol or drug abuse patient.[facility] Hospital[facility] the event this information is protected by the Federal Confidentiality of Alcohol and Drug Abuse Patient Records regulations: The Federal rules restrict any use of the information to criminally investigate or prosecute any alcohol or drug abuse patient.[facility] HospitalIn the event this information is protected by the Federal Confidentiality of Alcohol and Drug Abuse Patient Records regulations: The Federal rules restrict any use of the information to criminally investigate or prosecute any alcohol or drug abuse patient.[facility] HospitalIn the event this information is protected by the Federal Confidentiality of Alcohol and Drug Abuse Patient Records regulations: The Federal rules restrict any use of the information to criminally investigate or prosecute any alcohol or drug abuse patient.[facility] HospitalIn the event this information is protected by the Federal Confidentiality of Alcohol and Drug Abuse Patient Records regulations: The Federal rules restrict any use of the information to criminally investigate or prosecute any alcohol or drug abuse patient.[facility] HospitalIn the event this information is protected by the Federal Confidentiality of Alcohol and Drug Abuse Patient Records regulations: The Federal rules restrict any use of the information to criminally investigate or prosecute any alcohol or drug abuse patient.[facility] HospitalIn the event this information is protected by the Federal Confidentiality of Alcohol and Drug Abuse Patient Records regulations: The Federal rules restrict any use of the information to criminally investigate or prosecute any alcohol or drug abuse patient.[facility] HospitalIn the event this information is protected by the Federal Confidentiality of Alcohol and Drug Abuse Patient Records regulations: The Federal rules restrict any use of the information to criminally investigate or prosecute any alcohol or drug abuse patient.[facility] HospitalIn the event this information is protected by the Federal Confidentiality of Alcohol and Drug Abuse Patient Records regulations: The Federal rules restrict any use of the information to criminally investigate or prosecute any alcohol or drug abuse patient.[facility] Reason for Visit (unrecogniz ed section and [...] Care Teams (unrecognized sec tion and content) Stone Unloader Relationship Specialty Start Date End Date Yancy Barcenas APRN.RN ANTE PARTUM [address] [place] [id number] PCP - General Family Medicine 07/18/22 Stone Unloader Relationship Specialty Start Date End Date Yancy Barcenas APRN.RN ANTE PARTUM [address] [place] [id number] PCP - General Family Medicine 07/18/22 Stone Unloader Relationship Specialty Start Date End Date Yancy Barcenas APRN.RN ANTE PARTUM [address] [place] [address] PCP - General Family Medicine 07/18/22 Stone Unloader Relationship Specialty Start Date End Date Yancy Barcenas APRN.RN ANTE PARTUM [address] [place] [id number] PCP - General Family Medicine 07/18/22 Stone Unloader Relationship Specialty Start Date End Date Yancy Barcenas APRN.RN ANTE PARTUM [address] [place] [address] [phone] PCP - General Family Medicine 07/18/22 Stone Unloader Relationship Specialty Start Date End Date Yancy Barcenas APRN.RN ANTE PARTUM [address] [place] [phone] PCP - General Family Medicine 07/18/22 Stone Unloader Relationship Specialty Start Date End Date Yancy Barcenas APRN.RN ANTE PARTUM [address] [place] [phone] PCP - General Family Medicine 07/18/22 Stone Unloader Relationship Specialty Start Date End Date Yancy Barcenas APRN.RN ANTE PARTUM [address] [place] [address] PCP - General Family Medicine 07/18/22 INFORMATION [...] BE BASED ON THE PRIMARY CLINICAL RECORDS. [employer] provides no warranty or guarantee of the accuracy or completeness of information in this document.
--- NOTE | 2023-03-08 02:05 | US_ITS ---
INDICATION: biliary colic EXAMINATION: Ultrasound US Abdomen Limited (quadrant) TECHNIQUE: Guerrero scale and color doppler imaging was performed of the right upper quadrant. COMPARISON: CT scan of the abdomen and pelvis of the same day. FINDINGS: LIVER: There is normal echotexture. The liver is enlarged measuring about 18 cm in length. The portal vein is patent with normal hepatopedal flow. There are 2 cysts in the left lobe of the liver measuring about 2 cm and 10.6 cm. There is no free fluid. GALLBLADDER AND BILIARY TREE: Multiple gallstones are seen including some stones in the gallbladder neck with thickening of the gallbladder wall measuring about 5 mm. The proximal common bile duct measures 3.5 mm, which is within normal limits for the patient''s age. Sonographic Daily''s sign: Positive. PANCREAS: No focal abnormality is demonstrated in the visualized portions of the pancreas. No pancreatic ductal dilatation. RIGHT KIDNEY: The right kidney measures 12.7 cm in length. The renal cortex measures 1.6 cm. No evidence of hydronephrosis. US/Gallbladder IMPRESSION: 1. Multiple gallstones with thickening of the gallbladder wall. Acute cholecystitis cannot be excluded. 2. Liver cysts. 3. Hepatomegaly. Electronically Signed: Ronald Chaves MD at 8:17 EST ,
[2023-03-08 06:19] LABS: Absolute Lymphocyte Count 2.84 X10^3/uL (0.83-4.51); Basophil# 0.07 X10^3/uL; Basophil% 0.8 % (0-1); Eosinophil# 0.19 X10^3/uL; Eosinophils% 2.2 % (0-5); Hematocrit 36.2 % (37-47); Hemoglobin 12.1 g/dL (12.0-15.0); Lymphocyte # 2.84 X10^3/ul (0.83-4.51); Lymphocyte % 32.8 % (19-41); Mean Corp Hgb Conc 33.4 g/dL (32-36); Mean Corpuscular Hgb 30.1 pg (27.0-32.0); Mean Platelet Vol. 9.1 fl (6.2-12.0); Monocyte% 6.9 % (0-10); NRBC Flagged by Analyzer 0 % (0-5); Neutrophil # 4.95 X10^3/uL (2.7-7.7); Neutrophil % 57.1 % (47-70); Platelet Count 286 K/mm3 (150-450); RBC Distribution Width CV 11.5 % (11.6-14.6); RBC Distribution Width SD 37.9 fl (35.1-43.9); Red Blood Count 4.02 M/mm3 (4.2-5.4); White Blood Count 8.7 K/mm3 (4.4-11.0)
[2023-03-08 06:39] LABS: ALB/GLOB Ratio 1.1 RATIO (0.9-2.4); AST(SGOT) 46 U/L (15-37); Alanine Aminotransfer ALT/SGPT 107 U/L (13-56); Albumin, Serum 3.1 g/dL (3.2-5.0); Alkaline Phosphatase 68 U/L (45-117); Anion Gap 2 (5-15); BUN 8 mg/dL (7-18); BUN/Creat Ratio 12.1 RATIO (10-20); Calcium,Total 8.1 mg/dL (8.5-10.1); Chloride 112 mmol/L (98-107); Creatinine, Serum 0.66 mg/dL (0.55-1.02); EST Glomerular Filtration Rate 107 mL/min (>60); Est Glom Filt Rate - Afr Amer 130 mL/min (>60); Estimated Creatinine Clearance 114.59 ml/min; Globulin 2.9 g/dL (2.2-4.2); Glucose 88 mg/dL (74-106); Lipase 119 U/L (13-75); Potassium 3.5 mmol/L (3.5-5.1); Sodium Level 142 mmol/L (136-145)
--- NOTE | 2023-03-08 10:23 | EKG12_ITS ---
Test Reason : PRE-OP Blood Pressure : / mmHG Vent. Rate : 058 BPM Atrial Rate : 058 BPM P-R Int : 168 ms QRS Dur : 106 ms QT Int : 420 ms P-R-T Axes : 053 060 067 degrees QTc Int : 412 ms Sinus bradycardia with sinus arrhythmia Incomplete right bundle branch block Borderline ECG Confirmed by SCARLETT CARBAJAL, HENRY ([id number]), website/blog editor CARMEN MUKHERJEE ([id number]) on 03/09/2023 9:51:55 AM Referred By: Carmen Ulloa Confirmed By:HENRY PANTOJA MD
--- NOTE | 2023-03-08 10:34 | PCM.HP.STD ---
HPI - General General Date of Admission: 03/08/23 Date of Service: 03/08/23 Chief Complaint: Abdominal pain HPI Narrative ROSE MARIE GRIGGS, is a 37 F who presents with 1 day history of epigastric, back and shoulder pain. Patient notes she was present in the ED 1 week ago with similar symptoms and was diagnosed with pyelonephritis. Patient notes a history of ovarian cysts and kidney stones. She though the pain she was having was another kidney stone, however her symptoms this time were upper abdominal pain into her back. She denies any urinary symptoms. She notes nausea, vomiting. She denies any cardiac, pulmonary history. She notes only medication she takes is Vyvanse. Patient denies any other past abdominal surgeries. She denies any previous complications with anesthesia. CT scan of the ab/pel and RUQ u/s demonstrated multiple gallstones with thickening of the gallbladder wall. Acute cholecystitis can not be excluded, liver cysts, hepatomegaly. PFSH Medical History Kidney stones Migraines Smoker Home Medications lisdexamfetamine 30 mg capsule (Vyvanse) 30 mg PO DAILY ADHD 02/25/23 [History Last Taken 03/06/23] sulfamethoxazole 800 mg-trimethoprim 160 mg tablet (Bactrim DS) 1 tab PO BID ANTIBIOTIC 03/08/23 [History Last Taken 03/07/23] Allergy/AdvReac Type Severity Reaction Status Date / Time shrimp Allergy Mild Swelling Verified 03/07/23 23:14 hydrocodone [From [facility]] AdvReac Nausea Verified 03/07/23 23:14 Social History Smoking Status: Current every day smoker tobacco type: e-cigarettes ROS Constitutional Constitutional: Reports systems reviewed and no addt'l complaints, except as documented Eyes Eyes: Reports systems reviewed and no addt'l complaints, except as documented ENT HEENT: Reports systems reviewed and no addt'l complaints, except as documented Cardiovascular Cardiovascular: Reports systems reviewed and no addt'l complaints, except as documented Respiratory/Chest Respiratory/Chest: Reports systems reviewed and no addt'l complaints, except as documented Gastrointestinal Gastrointestinal: Reports systems reviewed and no addt'l complaints, except as documented Genitourinary Genitourinary: Reports systems reviewed and no addt'l complaints, except as documented Musculoskeletal Musculoskeletal: Reports systems reviewed and no addt'l complaints, except as documented Integumentary Integumentary: Reports systems reviewed and no addt'l complaints, except as documented Neurologic Neurologic: Reports systems reviewed and no addt'l complaints, except as documented Psychiatric Psychiatric: Reports systems reviewed and no addt'l complaints, except as documented Endocrine Endocrinology: Reports systems reviewed and no addt'l complaints, except as documented Hematologic/Lymphatic Hematologic/Lymphatic: Reports systems reviewed and no addt'l complaints, except as documented Allergic/Immunologic Allergic/Immunologic: Reports systems reviewed and no addt'l complaints, except as documented Vital Signs Vital Signs Vital Signs: 03/07/23 23:08 03/08/23 01:24 03/08/23 05:57 Temperature 98.0 F 97 F L 97.5 F L Temperature Source Temporal Temporal Temporal Pulse Rate 80 63 63 Respiratory Rate 15 16 16 Blood Pressure 102/71 96/53 L 97/60 Blood Pressure Mean 81 67 72 Pulse Ox 98 99 98 Oxygen Delivery Method Room Air Room Air Room Air Weight Weight: 155 lb 3.287 oz Body Mass Index (BMI) 24.3 Physical Exam Const alert, oriented x3 and no apparent distress HEENT normocephalic and head/scalp atraumatic Eyes PERRL Neck full ROM Lymph Lymphatic: no lymphadenopathy noted Resp normal respiratory effort and clear to auscultation bilaterally Cardio regular rate and regular rhythm GI GI Narrative: Abdomen- soft, tenderness in the RUQ/epigastric region. Positive Daily's sign. Hypoactive bowel sounds. no CVA tenderness Back/Spine no CVA tenderness Extremity normal to inspection Skin no rashes or lesions noted Neuro no focal motor deficits and no sensory deficits noted Psych Appearance: grossly normal Activity / Motor Behavior: appropriate eye contact Speech: normal speech Results Lab / Micro Data 03/08/23 06:10 03/08/23 06:10 Labs: Laboratory Results - last 24 hr 03/07/23 23:15: WBC 8.8, RBC 4.53, Hgb 13.6, Hct 40.9, MCV 90.3, MCH 30.0, MCHC 33.3, RDW Std Deviation 38.2, RDW Coeff of Dimas 11.6, Plt Count 368, MPV 9.1, Immature Gran % (Auto) 0.300, Neut % (Auto) 56.9, Lymph % (Auto) 32.6, [place] % (Auto) 8.4, Eos % (Auto) 1.1, Baso % (Auto) 0.7, Absolute Neuts (auto) 5.0, Absolute Lymphs (auto) 2.86, Nucleated RBC % 0, Sodium 142, Potassium 3.6, Chloride 109 H, Carbon Dioxide 29.0, Anion Gap 4 L, BUN 10, Creatinine 0.68, Estim Creat Clear Calc 111.22, Est GFR (MDRD) Af Amer 126, Est GFR (MDRD) Non-Af 104, BUN/Creatinine Ratio 14.8, Glucose 89, Calcium 9.1, Total Bilirubin 0.30, Direct Bilirubin 0.20, AST 63 H, ALT 122 H, Alkaline Phosphatase 84, Total Protein 6.8, Albumin 3.5, Globulin 3.3, Lipase 45, Serum , Qual NEGATIVE 03/07/23 23:59: Urine Color Yellow, Urine Clarity Clear, Urine pH 8.0, Ur Specific [place] 1.015, Urine Protein 15 H, Urine Glucose (UA) Normal, Urine Ketones Negative, Urine Occult Blood Negative, Urine Nitrite Negative, Urine Bilirubin Negative, Urine Urobilinogen Normal, Ur Leukocyte Esterase Negative, Urine RBC 0 SEEN, Urine WBC 0 SEEN, Ur Squamous Epith Cells 0 SEEN, Amorphous Sediment 2+, Urine Bacteria RARE, Urine Mucus 0 SEEN 03/08/23 06:10: WBC 8.7, RBC 4.02 L, Hgb 12.1, Hct 36.2 L, MCV 90.0, MCH 30.1, MCHC 33.4, RDW Std Deviation 37.9, RDW Coeff of Dimas 11.5 L, Plt Count 286, MPV 9.1, Immature Gran % (Auto) 0.200, Neut % (Auto) 57.1, Lymph % (Auto) 32.8, [place] % (Auto) 6.9, Eos % (Auto) 2.2, Baso % (Auto) 0.8, Absolute Neuts (auto) 5.0, Absolute Lymphs (auto) 2.84, Nucleated RBC % 0, Sodium 142, Potassium 3.5, Chloride 112 H, Carbon Dioxide 28.0, Anion Gap 2 L, BUN 8, Creatinine 0.66, Estim Creat Clear Calc 114.59, Est GFR (MDRD) Af Amer 130, Est GFR (MDRD) Non-Af 107, BUN/Creatinine Ratio 12.1, Glucose 88, Calcium 8.1 L, Total Bilirubin 0.50, AST 46 H, ALT 107 H, Alkaline Phosphatase 68, Total Protein 6.0 L, Albumin 3.1 L, Globulin 2.9, Albumin/Globulin Ratio 1.1, Lipase 119 H Imagaing Radiology Impression Abdomen/Pelvis CT 03/08/23 00:18 IMPRESSION: 1. Findings concerning for acute cholecystitis. Dedicated right upper quadrant ultrasound imaging is recommended for further evaluation. 2. Cysts versus hemangiomas within the liver which could be more completely characterize with MR imaging of the abdomen. 3. Sigmoid colonic diverticulosis without evidence of acute diverticulitis. 4. Appropriately positioned intrauterine device. Electronically Signed: Bucky Bardales MD at 1:18 EST , Chest CTA 03/08/23 00:18 IMPRESSION: 1. No acute cardiac pulmonary disease 2. Cysts versus hemangiomas within the liver which could be more definitively characterize with MR imaging. Electronically Signed: Bucky Bardales MD at 1:38 EST , Gallbladder Ultrasound 03/08/23 02:05 IMPRESSION: 1. Multiple gallstones with thickening of the gallbladder wall. Acute cholecystitis cannot be excluded. 2. Liver cysts. 3. Hepatomegaly. Electronically Signed: Ronald Chaves MD at 8:17 EST , Assessment & Plan Assessment/Plan (1) Acute cholecystitis: PLAN: I am seeing this patient in conjunction with Dr. Colunga. He has independently evaluated this patient. Dr. Colunga will plan to perform a laparoscopic cholecystectomy with intraoperative cholangiogram. Procedure details, risks and benefits have been explained. Patient and her have had the opportunity to ask and have questions answered. Patient verbally understands and agrees with the planned procedure. Plan for patient to be admitted following the procedure to med/surg floor. Obtain pre-op EKG, IV Zosyn, NPO status. Thank you for allowing us to participate in this patient's care. Charges/Coding Visit Charges OBSV E&M: 61613 Observ/hosp same date L2
--- NOTE | 2023-03-08 10:45 | RAD_ITS ---
PROCEDURE: FLUOROSCOPIC GUIDED CHOLANGIOGRAM/PANCREATOGRAPHY DATE OF EXAMINATION: March 08, 2023 INDICATION: Female, 37 years old. LAP HELADIO PHYSICIAN: Jagdeep Colunga FLUOROSCOPY TIME (if supplied): 46 seconds RADIATION DOSAGE (If Supplied By Facility): CTDIvol = ( 17 ) mGy, DLP = ( ) mGycm CONSENT: The risks, benefits and alternatives to the procedure were explained to the patient, and the patient agreed to the procedure and signed the consent. PROCEDURE/TECHNIQUE: (All elements of maximal sterile barrier technique followed, including US elements as applicable) The risks, benefits, and alternatives to the procedure were explained to patient, and the patient agreed to the procedure and signed a consent form for the procedure. Comparison study: Gallbladder ultrasound dated March 08, 2023. CT of abdomen and pelvis dated March 08, 2023 FINDINGS: Intraoperative surgical instrumentation seen in the yassine hepatis region and overlying the liver. Contrast outlines the common bile duct and the main right and left intrahepatic biliary ducts. The cystic duct and gallbladder are opacified with contrast. No filling defects are identified. There is no biliary ductal dilatation. The images do not include in the excretion of contrast from the duct into the duodenum. No extraluminal leakage of contrast is seen outside of the biliary ducts or bowel. RAD/Cholangiogram/ O R,Initial IMPRESSION: 1. Status post intraoperative cholangiogram Electronically Signed: Jose Burrell MD at 15:39 EST ,
[2023-03-08] MEDS: Lactated Ringers 1,000 ML 15 ML IV ×3 (11:07→17:17)
[2023-03-08] MEDS: Piperacil/Tazobactam 3.375 GM in 0.9% Normal Saline (50mL MB+) 50 ML IV (11:32)
[2023-03-08] MEDS: Bupivacaine 0.25% 30 ML Vial (12:08)
--- NOTE | 2023-03-08 12:15 | GALL_PTH ---
PATHOLOGY RESULTS PATIENT: ROSE MARIE GRIGGS LOC: [id number] U#:[id number] AGE/SX: 37/F ROOM: ID315 RE03/08/[address]: Dr. Jagdeep Colunga MD : 1985 BED: 1 DIS: 03/10/2023 SPEC #: [id number] RECD: 03/08/23 12:59 STATUS: ULISSES STATON #: [id number] IGULIANA: 03/08/23 12:[address]: Jagdeep Colunga DEPT: SURGICAL PATHOLOGY RECD BY: Toya Magaña ENTERED: 03/09/23 10:04 SP TYPE: [facility]IN[facility] ARIAS DR: Yancy Barcenas, SMOKE JUMPER SUPERVISOR-C Carmen Ulloa PA-C Tissues: Gallbladder, NOS Procedures: Surgery Specimen Level III HEADER OPERATION: Laparoscopic cholecystectomy with IOC PRE-OP DIAGNOSIS: Multiple gallstones wit thickening of gallbladder wall TISSUE SUBMITTED: Gallbladder MICROSCOPIC DIAGNOSIS Gallbladder, cholecystectomy: Cholesterolosis, chronic cholecystitis and cholelithiasis. AM:tiara 03/12/2023 MICROSCOPIC DESCRIPTION Slides are reviewed. GROSS DESCRIPTION Received is one container labeled with the patient's name and designated gallbladder. The specimen consists of a gallbladder measuring 7.5 cm in length and up to 3.5 cm in diameter. The external surface is pink-willis, smooth and glistening for the most part. Focally it is granular, hemorrhagic and contains cautery artifact. The gallbladder contains green-yellow mucoid bile and multiple mulberry, yellow stones measuring in aggregate 3.0 x 3.0 x 0.5 cm and 0.1 to 0.3 cm in greatest dimension. The mucosa is bile-stained and without any mass lesions. The gallbladder wall measures up to 0.2 cm in thickness. Math Interventionist sections from the gallbladder and the cystic duct are submitted in one cassette. / SJ:tiara 03/09/2023 TC:3 CPT: 41179
--- NOTE | 2023-03-08 12:55 | PCM.OPRPT ---
Report of Operation Date of Procedure: 03/08/23 Pre-Operative Diagnosis: Acute cholecystitis Post-Operative Diagnosis: Acute cholecystitis with choledocholithiasis Surgery/Procedure Performed:: Laparoscopic cholecystectomy with cholangiograms Type of Anesthesia: General/Regional Specimen's removed: Gallbladder Estimated Blood Loss (mL): 10 Description of Procedure: After obtaining informed consent patient was brought back to the operating room. General anesthesia was induced. The abdomen was prepped and draped in usual sterile fashion. A small midline incision was made superior to the umbilicus and deepened to the level of fascia. The fascia was elevated and incised. Next the peritoneum was elevated and incised in the same fashion. Finger sweep was performed and the [place] trocar was placed into the abdomen. The balloon was inflated. The abdomen was inflated to 15 mmHg. Next a camera was introduced into the abdomen and the abdomen was inspected. Next under direct visualization three 5-mm ports were placed one subxiphoid and 2 subcostal. Next the gallbladder was elevated and retracted toward the right shoulder. The peritoneum was stripped from the gallbladder. The infundibulum was located and retracted laterally. Next the triangle of Calot was dissected and the cystic duct and cystic artery were identified. Cholangiograms were performed. The Maza clamp was used to clamp across the infundibulum and the catheter needle was inserted into the gallbladder. Under fluoroscopy contrast was instilled into the gallbladder and the common duct, cystic duct as well as proximal hepatic ducts were identified. There was no filling of the duodenum. There was a filling defect noted in the common bile duct. Glucagon was given and cholangiograms were reperformed but the stone was unable to be passed through. The clamp was removed as well as the needle and the infundibulum was grasped once more. Three hemolock clips were placed across the cystic duct. The cystic duct was then divided leaving 2 clips on the stump. The cystic artery was clipped and divided in the same fashion. The hook cautery was then used to take the gallbladder off of the gallbladder bed. Hemostasis was obtained. Gallbladder fossa was irrigated and no active bleeding or bile leakage was noted. Next the camera was introduced in the subxiphoid port. An Endopouch bag was placed through the umbilical port and the gallbladder was placed into it. The gallbladder was then removed through the umbilical incision. The camera was then reinserted through the umbilical port. The gallbladder fossa was inspected once more and noted to be hemostatic with no leaking bile. The abdomen was suctioned dry. The 5 mm ports were removed under direct visualization. The umbilical port was then removed and the air was removed from the abdomen. Next using an 0 Vicryl suture the umbilical fascia was closed in a [id number] fashion. The umbilical port site was irrigated local anesthetic was administered to all the incisions. All the incisions were closed with interrupted subcuticular 4-0 Monocryl sutures followed by Steri-Strips and dressings. The patient was awoken and taken to PACU in stable condition. I will consult Dr. Anaay for ERCP Admit VTE Documentation VTE Mechan Device Prophylaxis: SCD's
--- OUTSIDE RECORDS SUMMARY | 2023-03-08 13:37 | XMS RPT_ITS | CCD ---
Author Name Unknown Address [address] [place] [address] Organization [facility] Care Team Providers Care Training Director Name Role Phone Unavailable Primary Care Provider Unavailsofia Barcenas HYDROLOGY TECHNICIAN.Yancy CARTER Primary Care Provider MARISABEL WHATLEY Referring [...] Translations: [SHELLFISH DERIVED] Drug Allergy 03-14-2012 Anaphylaxis [facility] Work Phone: (12 sources) Acetaminophen / HYDROcodone; Translations: [HYDROCODONE-ACETA MINOPHEN] Drug Allergy 06-19-2022 GI Upset [facility] Medications Current Medications Medication Drug Class(es) Dates [...] unspecified] Chronic Other aftercare (1 source) Other technician terminal and repeater (current) drug therapy; Translations: [Medication management] Onset: [...] 11:53-0400 Body weight 72.12 kg Yancy Barcenas HYDROLOGY TECHNICIAN.STONE PROCESSING MACHINE OPERATOR Work Phone: [facility] 07-18-2022 11:53-0400 Diastolic blood pressure 66 mm[Hg] Yancy Barcenas HYDROLOGY TECHNICIAN.STONE PROCESSING MACHINE OPERATOR Work Phone: [facility] 07-18-2022 11:53-0400 Heart rate 86 /min Yancy Barcenas HYDROLOGY TECHNICIAN.STONE PROCESSING MACHINE OPERATOR Work Phone: [facility] 07-18-2022 11:53-0400 Respiratory rate 14 /min Yancy Barcenas HYDROLOGY TECHNICIAN.STONE PROCESSING MACHINE OPERATOR Work Phone: [facility] 07-18-2022 11:53-0400 Systolic blood pressure 100 mm[Hg] Yancy Barcenas HYDROLOGY TECHNICIAN.STONE PROCESSING MACHINE OPERATOR Work Phone: [facility] 06-19-2022 17:32-0400 Body temperature 98.01 [degF] Maria Del Carmen Athy PA-C Work Phone: [facility] 06-19-2022 17:32-0400 Body weight 74.84 kg Maria Del Carmen Athy PA-C Work Phone: [facility] 06-19-2022 17:32-0400 Diastolic blood pressure 68 mm[Hg] Maria Del Carmen Athy PA-C Work Phone: [facility] 06-19-2022 17:32-0400 Heart rate 101 /min Maria Del Carmen Athy PA-C Work Phone: [facility] 06-19-2022 17:32-0400 Respiratory rate 18 /min Maria Del Carmen Athy PA-C Work Phone: [facility] 06-19-2022 17:32-0400 SaO2% (BldA) [Mass fraction] 98 % Maria Del Carmen Athy PA-C Work Phone: [facility] 06-19-2022 17:32-0400 Systolic blood pressure 102 mm[Hg] Maria Del Carmen Athy PA-C Work Phone: [facility] 01-19-2022 14:34-0500 Body height 170.5 cm Marisabel Corralescalf HYDROLOGY TECHNICIAN.STONE PROCESSING MACHINE OPERATOR Work Phone: [facility] 01-19-2022 14:34-0500 Body weight 83.01 kg Marisabel Phylicia HYDROLOGY TECHNICIAN.STONE PROCESSING MACHINE OPERATOR Work Phone: [facility] 01-19-2022 14:34-0500 Diastolic blood pressure 72 mm[Hg] Marisabel Phylicia HYDROLOGY TECHNICIAN.STONE PROCESSING MACHINE OPERATOR Work Phone: [facility] 01-19-2022 14:34-0500 Systolic blood pressure 98 mm[Hg] Marisabel [place] HYDROLOGY TECHNICIAN.STONE PROCESSING MACHINE OPERATOR Work Phone: [facility] Encounters Encounter Date Encounter Type Care Provider Facility Start: 01-17-2023 Refill Yancy Ventura e HYDROLOGY TECHNICIAN.STONE PROCESSING MACHINE OPERATOR Work Phone: [facility] Procedures Date Procedure Procedure Detail Performing Clinician Start: 06-19-2022 STREP A MOLECULAR (POC) Maria Del Carmen Hazel PA-C Work Phone: Start: 10-05-2016 Adult depression screening assessment Pam Moe HYDROLOGY TECHNICIAN.STONE PROCESSING MACHINE OPERATOR Work Phone: Plan of Treatment Date Care Activity Detail Author Start: 01-19-2027 HPV TESTING HPV TESTING [facility] Start: 01-19-2027 PAP TESTING PAP TESTING [facility] Start: 12-09-2025 Urine microalbumin profile [facility] Start: 06-07-2025 HPV TESTING HPV TESTING [facility] Start: 06-07-2025 PAP TESTING PAP TESTING [facility] Start: 07-19-2023 COVID-19 VACCINE (#1) COVID-19 VACCI NE (#1) [facility] Immunizations Immunization Date Immunization Notes Care Provider Fa sri 12-10-2015 tetanus toxoid, redu rylee diphtheria toxoid, and acellular pertussis vaccine, adsorbed Pam Moe HYDROLOGY TECHNICIAN.RAUL Work Phone: [facility] Payers Date Payer Category Payer Medicaid [id number] 2016 Medicaid [facility] [id number] 2016-Present [phone] [address] [place] [address] Medicaid [id number] 2016 Medicaid [id number] 2016 Medicaid [id number] Social History Date Type Detail Facility Start: 03-14-2012 End: 04-03-2022 Tobacco smoking status NHIS Ex-smoker [facility] Work Phone: End: 02-20-2011 History of tobacco use Current smoker [facility] Work Phone: Start: 03-14-2012 End: 04-03-2022 Tobacco use and exposure Smokeless tobacco non-user [facility] Work Phone: Start: 11-10-2020 End: 06-19-2022 Alcohol intake Current non-drinker of alcohol (finding) [facility] Start: 1985 Sex Assigned At Not on file [facility] Start: 09-05-2021 End: 09-15-2021 Exposure to SARS-CoV-2 (event) Not sure [facility] End: 02-20-2011 History of tobacco use Cigarette Smoker [facility] Work Phone: Start: 06-19-2022 End: 07-18-2022 History of Social function [facility] Work Phone: Start: 06-19-2022 End: 07-18-2022 Tobacco use panel [facility] Work Phone: Adult Depression Screening Assessment 1 [facility] Work Phone: Clinical Notes 08-05-2015 to 01-18-2023 [...] Marilou Schafer RN. documented in this encounter [facility] 12-22-2022 Miscellaneous Notes Please let patient know tox screen only shows amphetamines as appropriate. documented in this encounter [facility] 12-19-2022 Note HNO ID: [id number] Author: Yancy Barcenas APRN.RAUL Service: ? Author [...] TOX SCREEN ROUT UR Yancy Barcenas APRN.RAUL [facility] 12-12-2022 Miscellaneous Notes PDMP reviewed. Patient requested and refilled prescriptions appropriately. No suspicious activity noted. Patient requesting a call when RX is approved and sent to the pharmacy. Please call patient at: [phone] Last refill 11/03/22 Qty: 30 with 0 refills ROSE MARY 07/18/22 NOV 12/19/22 Mitchell Meneses LPN Pharmacy verified in Epic Patient has been identified by name and date of : Yes Patient requesting a call when RX is approved and sent to the pharmacy. Please call patient at: [phone] Patient phones for refill(s): Requested Prescriptions Pending [...] advise. Zee Gutiérrez documented in this encounter [facility] 11-19-2022 Miscellaneous Notes Reason for Call: Covid [...] fever 7. RESPIRATORY STATUS: no distress 8. XBZTEP-[id number]: same 9. HIGH RISK DISEASE: none; 10. VACCINE: no 11. BOOSTER: na 12. : LMP 2 weeks ago 13. OTHER SYMPTOMS none 14. O2 SATURATION MONITOR: na Protocols used: Coronavirus (COVID-19) Diagnosed or [id number] documented in this encounter [facility] 11-03-2022 Miscellaneous Notes Pt notified rx has been sent to pharm. Mitchell Meneses LPN The following approved medication requests have been transmitted electronically. Requested Prescriptions Signed Prescriptions Disp Refills lisdexamfetamine (VYVANSE) 30 mg capsule 30 capsule 0 Sig: Take 1 capsule by mouth once daily for 30 days. Authorizing Provider: CHIDI RDAPER PA-C Patient has been identified by name [...] one pill left documented in this encounter [facility] 09-29-2022 Miscellaneous Notes PDMP reviewed, no suspicious [...] Bonnie Melo RN documented in this encounter [facility] 08-24-2022 Miscellaneous Notes Patient active on mychart. Message sent Tammie Rodriguez Cma Please let patient know her wrist xray is normal. documented in this encounter [facility] 08-24-2022 Miscellaneous Notes Patient notified and verbalized [...] advise. Janiya Hilton documented in this encounter [facility] 08-24-2022 Miscellaneous Notes Patient notified and verbalized understanding Tammie Rodriguez Cma Please let patient know her vitamin d is low. She can start an OTC vitamin d supplement 5000 units daily documented in this encounter [facility] 08-23-2022 Note HNO ID: [id number] Author: RT Tiffany(R) Service: ? Author Type: Refueling Ramp Attendant Type: Progress Notes Filed: 08/23/2022 3:16 PM [...] RT Tiffany(R) August 23, 2022 3:08 PM [facility] 07-18-2022 Note HNO ID: [id number] Author: Yancy Barcenas APRN.STONE PROCESSING MACHINE OPERATOR Service: ? Author Type: Nurse Practitioner Type: Progress Notes Filed: 07/18/2022 12:21 PM Note Text: Chief Complaint Patient presents with: Establish Care HPI Mariel Michel is a 36 year old female who presents here today for Above Complaints.. Patient presents to [facility]. Patient also verbalizes wanting to go back [...] No history of dysuria, frequency or incontinence CHAINSTITCH PANTS OUTSEAMER: Negative for abnormal vaginal bleeding, abnormal vaginal [...] LISDEXAMFETAMINE 30 MG (more content not included)... [facility] 07-18-2022 Instructions Yancy Barcenas APRN.CNP - 07/18/2022 12:18 PM EDT Start vyvanse 2. Complete labs 3. Follow up in 3 months documented in this encounter [facility] 07-18-2022 History of Presen t illness Narrative Chief Complaint Patient presents with: [facility] HPI Mariel Michel is a 36 year old female who presents here today for Above Complaints.. Patient presents to [facility]. Patient also verbalizes wanting to go back [...] No history of dysuria, frequency or incontinence CHAINSTITCH PANTS OUTSEAMER: Negative for abnormal vaginal bleeding, abnormal vaginal [...] HYDROXY - VITAMIN B12 BLOOD Yancy Barcenas APRN.STONE PROCESSING MACHINE OPERATOR documented in this encounter [facility] 06-19-2022 Note HNO ID: [id number] Author: Maria Del Carmen Hazel PA-C Service: ? Author Type: Physician Finance Intern Type: Progress Notes Filed: 06/19/2022 6:53 PM Note Text: This note was created using Digital Allian[employer]. Subjective Mariel Michel is a 36 year [...] MOLECULAR (POC) Maria Del Carmen Hazel PA-C [facility] 06-19-2022 History of Presen t illness Narrative This note was created using Drillsterter. Subjective Mariel Michel is a 36 year [...] Carmen Hazel PA-C documented in this encounter [facility] 04-03-2022 Note HNO ID: [id number] Author: Lucy Villalobos APRN.STONE PROCESSING MACHINE OPERATOR Service: ? Author Type: Nurse Practitioner Type: [...] expected course of illness Lucy Villalobos APRN.CNP [facility] 01-19-2022 Note HNO ID: [id number] Author: Marisabel Whatley APRN.RAUL Service: ? Author [...] L2 SAB2 IAB0 Ectopic0 Multiple0 Live Births2 Director Auto History LMP: 01/03/2022 (Within Days), IUD Age at Menarche: Age at First : Age at Menopause: Director Auto History Comments: Sexual Activity: Yes; Male Contraception: [...] external genitalia normal, normal Bartholin's glands, urethra, [place]'s glands, no vulvar lesions, no cervical lesions, [...] to remove /replace Mirena IUD Marisabel Whatley APRN.[facility] 01-19-2022 History of Presen t illness Narrative [...] L2 SAB2 IAB0 Ectopic0 Multiple0 Live Births2 Director Auto History LMP: 01/03/2022 (Within Days), IUD Age at Menarche: Age at First : Age at Menopause: Director Auto History Comments: Sexual Activity: Yes; Male Contraception: [...] external genitalia normal, normal Bartholin's glands, urethra, [place]'s glands, no vulvar lesions, no cervical lesions, [...] Marisabel Whatley APRN.RAUL documented in this encounter [facility] 09-15-2021 History of Presen t illness Narrative Patient presents with complaints of heart racing, becoming diaphoretic and feeling like she is going to pass out, occurred [employer] and last week. Given continued and worsening symptoms would benefit from minimum of EKG, which is not performed here in clinic. Referred to ED Declines EMS Significant other to take to [place]. ER Passport filled out. documented in this encounter [facility] documented as of this encounter (statuses as of 09/15/2021) [facility] History of Past illness Narrative* Problem Noted [...] of this encounter (statuses as of 01/19/2022) [facility] History of Past illness Narrative* Problem Noted [...] of this encounter (statuses as of 06/20/2022) [facility] History of Past illness Narrative* Problem Noted [...] of this encounter (statuses as of 07/18/2022) [facility] History of Past illness Narrative* Problem Noted [...] of this encounter (statuses as of 08/25/2022) [facility] History of Past illness Narrative* Problem Noted [...] of this encounter (statuses as of 08/25/2022) [facility] History of Past illness Narrative* Problem Noted [...] of this encounter (statuses as of 09/30/2022) [facility] History of Past illness Narrative* Problem Noted [...] of this encounter (statuses as of 11/03/2022) [facility] History of Past illness Narrative* Problem Noted [...] of this encounter (statuses as of 11/20/2022) [facility] History of Past illness Narrative* Problem Noted [...] of this encounter (statuses as of 12/12/2022) [facility] History of Past illness Narrative* Problem Noted [...] of this encounter (statuses as of 12/23/2022) [facility] History of Past illness Narrative* Problem Noted [...] of this encounter (statuses as of 01/19/2023) [facility] Diagnosis Racing heart beat- Primary Tachycardia, unspecified [facility] Diagnosis Encounter for gynecological examination (general) (routine) without abnormal findings- Primary Screening for cervical cancer Screening for malignant neoplasm of the cervix Encounter for screening for human papillomavirus (HPV) Special screening examination for human papillomavirus (HPV) Screen for STD (sexually transmitted disease) Screening examination for venereal disease Irregular menstrual cycle [facility] Diagnosis Sore throat- Primary Acute pharyngitis [facility] Diagnosis Medication management- Primary Encounter for long-term (current) use of other medications Screening for diabetes mellitus Encounter for lipid screening for cardiovascular disease Screening for lipoid disorders Right wrist pain Pain in joint, forearm Attention deficit hyperactivity disorder (ADHD), combined type Fatigue, unspecified type [facility] Diagnosis Attention deficit hyperactivity disorder (ADHD), combined type documented in this encounter [facility] note* Diagnosis Attention deficit hyperactivity disorder (ADHD), combined type documented in this encounter [facility] note* Diagnosis Attention deficit hyperactivity disorder (ADHD), combined type documented in this encounter [facility] note* Diagnosis Attention deficit hyperactivity disorder (ADHD), combined type documented in this encounter [facility] note* Diagnosis Attention deficit hyperactivity disorder (ADHD), combined type [facility] Outpatient Procedure (Routine) - Pending Review Specialty Diagnoses / Procedures Referred By Contac t Referred To Contact [facility] Diagnoses Irregular menstrual cycle Procedures REMOVE INTRAUTERINE DEVICE REMOVE INTRAUTERINE DEVICE Marisabel Whatley APRN.CNP [address] [place] [address] [address] Referral ID Status Reason Start Date Expiration Date Visits Requested Visits Authorized [id number] Pending Review Auto-Generat ed Referral 01/19/2022 01/19/2023 1 1 * Outpatient Procedure (Routine) - Pending Review Specialty Diagnoses / Procedures Referred By Contac t Referred To Contact [facility] Diagnoses Irregular menstrual cycle Procedures INSERT INTRAUTERINE DEVICE LEVONORGESTREL IU 52MG 5 YR INSERT INTRAUTERINE DEVICE Marisabel Whatley APRN.CNP [address] [place] [address] [address] Referral ID Status Reason Start Date Expiration Date Visits Requested Visits Authorized [id number] Pending Review Auto-Generat ed Referral 01/19/2022 01/19/2023 1 1 [facility] for referral (narrative)* Diagnostic Procedure Only (Routine) - Pending Review Specialty Diagnoses / Procedures Referred By Contac t Referred To Contact XR IMAGING Diagnoses Right wrist pain Procedures XR WRIST GENERAL 3V PA/LAT/OBL RIGHT RADEX WRIST COMPLETE MINIMUM 3 VIEWS Yancy Barcenas APRN.STONE PROCESSING MACHINE OPERATOR [address] [place] [address] Xr Imaging Referral ID Status Reason Start Date Expiration Date Visits Requested Visits Authorized [id number] Pending Review Auto-Generat ed Referral 07/18/2022 08/17/2023 1 1 [facility] Reason for Referral Specialty Diagnoses / Procedures Referred By Janie shahid Referred To Contact Diagnoses Attention deficit hyperactivity disorder (ADHD), combined type Yancy Barcenas APRN.CNP [address] [place] [address] Referral ID Status Reason Start Date Expiration Date Visits Re quested Visits Authorized [id number] Closed 1 1 Summary Purpose Family History [...] or prosecute any alcohol or drug abuse patient.[facility] the event this information is protected by the Federal Confidentiality of Alcohol and Drug Abuse Patient Records regulations: The Federal rules restrict any use of the information to criminally investigate or prosecute any alcohol or drug abuse patient.[facility] the event this information is protected by the Federal Confidentiality of Alcohol and Drug Abuse Patient Records regulations: The Federal rules restrict any use of the information to criminally investigate or prosecute any alcohol or drug abuse patient.[facility] the event this information is protected by the Federal Confidentiality of Alcohol and Drug Abuse Patient Records regulations: The Federal rules restrict any use of the information to criminally investigate or prosecute any alcohol or drug abuse patient.[facility] the event this information is protected by the Federal Confidentiality of Alcohol and Drug Abuse Patient Records regulations: The Federal rules restrict any use of the information to criminally investigate or prosecute any alcohol or drug abuse patient.[facility] the event this information is protected by the Federal Confidentiality of Alcohol and Drug Abuse Patient Records regulations: The Federal rules restrict any use of the information to criminally investigate or prosecute any alcohol or drug abuse patient.[facility] the event this information is protected by the Federal Confidentiality of Alcohol and Drug Abuse Patient Records regulations: The Federal rules restrict any use of the information to criminally investigate or prosecute any alcohol or drug abuse patient.[facility] the event this information is protected by the Federal Confidentiality of Alcohol and Drug Abuse Patient Records regulations: The Federal rules restrict any use of the information to criminally investigate or prosecute any alcohol or drug abuse patient.[facility] the event this information is protected by the Federal Confidentiality of Alcohol and Drug Abuse Patient Records regulations: The Federal rules restrict any use of the information to criminally investigate or prosecute any alcohol or drug abuse patient.[facility] the event this information is protected by the Federal Confidentiality of Alcohol and Drug Abuse Patient Records regulations: The Federal rules restrict any use of the information to criminally investigate or prosecute any alcohol or drug abuse patient.[facility] the event this information is protected by the Federal Confidentiality of Alcohol and Drug Abuse Patient Records regulations: The Federal rules restrict any use of the information to criminally investigate or prosecute any alcohol or drug abuse patient.[facility] the event this information is protected by the Federal Confidentiality of Alcohol and Drug Abuse Patient Records regulations: The Federal rules restrict any use of the information to criminally investigate or prosecute any alcohol or drug abuse patient.[facility] the event this information is protected by the Federal Confidentiality of Alcohol and Drug Abuse Patient Records regulations: The Federal rules restrict any use of the information to criminally investigate or prosecute any alcohol or drug abuse patient.[facility] Reason for Visit (unrecogniz ed section and [...] Care Teams (unrecognized sec tion and content) Training Director Relationship Specialty Start Date End Date Yancy Barcenas APRN.STONE PROCESSING MACHINE OPERATOR [address] [place] [id number] PCP - General Family Medicine 07/18/22 Training Director Relationship Specialty Start Date End Date Yancy Barcenas APRN.STONE PROCESSING MACHINE OPERATOR [address] [place] [id number] PCP - General Family Medicine 07/18/22 Training Director Relationship Specialty Start Date End Date Yancy Barcenas APRN.STONE PROCESSING MACHINE OPERATOR [address] [place] [id number] PCP - General Family Medicine 07/18/22 Training Director Relationship Specialty Start Date End Date Ynacy Barcenas APRN.STONE PROCESSING MACHINE OPERATOR [address] [place] [id number] PCP - General Family Medicine 07/18/22 Training Director Relationship Specialty Start Date End Date Yancy Barcenas APRN.STONE PROCESSING MACHINE OPERATOR [address] [place] [address] [id number] [phone] PCP - General Family Medicine 07/18/22 Training Director Relationship Specialty Start Date End Date Yancy Barcenas APRN.STONE PROCESSING MACHINE OPERATOR [address] [place] [id number] PCP - General Family Medicine 07/18/22 Training Director Relationship Specialty Start Date End Date Yancy Barcenas APRN.STONE PROCESSING MACHINE OPERATOR [address] [place] [id number] PCP - General Family Medicine 07/18/22 Training Director Relationship Specialty Start Date End Date Yancy Barcenas APRN.STONE PROCESSING MACHINE OPERATOR [address] [place] [address] PCP - General Family Medicine 07/18/22 INFORMATION [...] BE BASED ON THE PRIMARY CLINICAL RECORDS. [employer] provides no warranty or guarantee of the accuracy or completeness of information in this document.
--- NOTE | 2023-03-08 16:20 | RAD_ITS ---
ERCP INDICATION: Abnormal pain. Fluoroscopy time: 91 seconds. Images obtained: 8 TECHNIQUE: Fluoroscopy the abdomen was utilized operating room during an ERCP and 8 images are cemented for interpretation. FINDINGS: Examination, bile duct demonstrates narrowing of the distal common bile duct the ampulla which may represent a stricture. Balloon sphincterotomy was performed and a biliary stent was placed. RAD/ERCP Biliary/Pancreas IMPRESSION: ERCP with balloon sphincterotomy and stent placement. Electronically Signed: Jose Borden MD at 18:47 EST ,
[2023-03-08] MEDS: Sugammadex Sodium 200 MG/2 ML VIAL IV (16:47)
--- NOTE | 2023-03-08 16:58 | OP.ERCP_ITS ---
Patient Name: Mariel Denise Procedure Date: 03/08/2023 4:26 PM Date of : 1985 Age: 37 Procedure: ERCP Indications: Bile duct stone(s) Providers: Santiago Anaya DO Referring MD: GENO Martinez Medicines: Monitored Anesthesia Care Patient Profile: This is a 37 year old female. Refer to note in patient chart for documentation of history and physical. Patient has symptoms of acute right upper quadrant abdominal pain. She is status post laparoscopic cholecystectomy recently. This patient has no history of previous ERCP. Complications: No immediate complications. Procedure: Pre-Anesthesia Assessment: - Prior to the procedure, a History and Physical was performed, and patient medications and allergies were reviewed. The patient is competent. The risks and benefits of the procedure and the sedation options and risks were discussed with the patient. All questions were answered and informed consent was obtained. Patient identification and proposed procedure were verified by the physician in the pre-procedure area. Mental Status Examination: alert and oriented. Airway Examination: normal oropharyngeal airway and neck mobility. Respiratory Examination: clear to auscultation. CV Examination: normal. Prophylactic Antibiotics: The patient does not require prophylactic antibiotics. Prior Anticoagulants: The patient has taken no anticoagulant or antiplatelet agents. ASA Grade Assessment: II - A patient with mild systemic disease. After reviewing the risks and benefits, the patient was deemed in satisfactory condition to undergo the procedure. The anesthesia plan was to use monitored anesthesia care (MAC). Immediately prior to administration of medications, the patient was re-assessed for adequacy to receive sedatives. The heart rate, respiratory rate, oxygen saturations, blood pressure, adequacy of pulmonary ventilation, and response to care were monitored throughout the procedure. The physical status of the patient was re-assessed after the procedure. After obtaining informed consent, the scope was passed under direct vision. Throughout the procedure, the patient's blood pressure, pulse, and oxygen saturations were monitored continuously. The Duodenoscope was introduced through the mouth, and advanced to the duodenum and used to inject contrast into the bile duct. The ERCP was accomplished without difficulty. The patient tolerated the procedure well. Scope In: 4:30:52 PM Scope Out: 4:44:47 PM Total Procedure Duration Time 0 hours 13 minutes 55 seconds Findings: The aeronautical engineer film was normal. The esophagus was successfully intubated under direct vision. The scope was advanced to a normal major papilla in the descending duodenum without detailed examination of the pharynx, larynx and associated structures, and upper GI tract. The upper GI tract was grossly normal. The bile duct was deeply cannulated with the short-nosed traction sphincterotome. Contrast was injected. I personally interpreted the bile duct images. There was brisk flow of contrast through the ducts. Image quality was excellent. Contrast extended to the entire biliary tree. Opacification of the entire biliary tree except for the gallbladder and main bile duct was successful. The maximum diameter of the ducts was 8 mm. The lower third of the main bile duct and middle third of the main bile duct contained four stones, the largest of which was 3 mm in diameter. The main bile duct was mildly dilated, with a stone causing an obstruction. The largest diameter was 7 mm. A straight Roadrunner wire was passed into the biliary tree. A 5 mm biliary sphincterotomy was made with a traction (standard) sphincterotome using ERBE electrocautery. There was no post-sphincterotomy bleeding. The biliary tree was swept with a 12 mm balloon starting at the bifurcation. Sludge was swept from the duct. All stones were removed. One 10 Fr by 5 cm temporary stent with two external flaps and two internal flaps was placed 5 cm into the common bile duct. Bile flowed through the stent. The stent was in good position. Impression: - The entire main bile duct was mildly dilated, with a stone causing an obstruction. - Choledocholithiasis was found. Complete removal was accomplished by biliary sphincterotomy and balloon extraction. - A biliary sphincterotomy was performed. - The biliary tree was swept. - One temporary stent was placed into the common bile duct. Procedure Code(s): --- Professional --- 68190, Endoscopic retrograde cholangiopancreatography (ERCP); with placement of endoscopic stent into biliary or pancreatic duct, including pre- and post-dilation and guide wire passage, when performed, including sphincterotomy, when performed, each stent [id number], Endoscopic retrograde cholangiopancreatography (ERCP); with removal of calculi/debris from biliary/pancreatic duct(s) 32385, 26, Endoscopic catheterization of the biliary ductal system, radiological supervision and interpretation CPT copyright 2021 [employer]. All rights reserved. The codes documented in this report are preliminary and upon operating system designer review may be revised to meet current compliance requirements. Santiago Anaya DO 03/08/2023 4:57:45 PM This report has been signed electronically. Number of Addenda: 0 Note Initiated On: 03/08/2023 4:26 PM
--- NOTE | 2023-03-08 16:58 | OP.CCLET_ITS ---
03/08/2023 Ryne Hamilton Re : ERCP procedure for Mariel Denise Dear Swapna This procedure was performed on February. My impressions and recommendations are as follows: Impressions : - The entire main bile duct was mildly dilated, with a stone causing an obstruction. - Choledocholithiasis was found. Complete removal was accomplished by biliary sphincterotomy and balloon extraction. - A biliary sphincterotomy was performed. - The biliary tree was swept. - One temporary stent was placed into the common bile duct. Recommendations : My findings are described in the full procedure note, which is enclosed. If I can be of further assistance, please feel free to contact me at . Sincerely, Santiago Anaya, 03/08/2023 4:57:45 PM This report has been signed electronically.
[2023-03-08] MEDS: Ondansetron 4 MG/2 ML Vial IV (18:49)
[2023-03-08] MEDS: 0.9% Normal Saline (1000mL) 1,000 ML 100 ML IV (18:49)
[2023-03-08] MEDS: Morphine 2 MG/ML Syringe IV (18:49)
[2023-03-08] MEDS: 0.9% Saline Lock 10 ML Syringe IV (18:53)
[2023-03-08] MEDS: Acetaminophen 325 MG Tablet 650 MG PO (20:31)
[2023-03-08] MEDS: oxyCODONE 5 MG Tablet PO (20:31)
[2023-03-09] VITALS (8 sets, daily range): BP systolic 97–106; BP diastolic 61–73; PULSE 77–86; RESP 16–20; TEMP 36.4–37.2; O2SAT 95–100; BMI 24.5
[2023-03-09] MEDS: oxyCODONE 5 MG Tablet PO ×4 (00:54→20:50)
[2023-03-09] MEDS: Acetaminophen 325 MG Tablet 650 MG PO ×3 (02:31→23:51)
[2023-03-09] MEDS: 0.9% Normal Saline (1000mL) 1,000 ML 100 ML IV (02:33)
[2023-03-09 06:26] LABS: Absolute Lymphocyte Count 1.56 X10^3/uL (0.83-4.51); Absolute Neutrophil Count 11.5 X10^3/uL (2.0-7.7); Basophil# 0.01 X10^3/uL; Basophil% 0.1 % (0-1); Hematocrit 34.7 % (37-47); Hemoglobin 11.7 g/dL (12.0-15.0); Lymphocyte # 1.56 X10^3/ul (0.83-4.51); Lymphocyte % 10.9 % (19-41); Mean Corp Hgb Conc 33.7 g/dL (32-36); Mean Corpuscular Hgb 29.6 pg (27.0-32.0); Mean Corpuscular Volume 87.8 fL (81-99); Mean Platelet Vol. 9.2 fl (6.2-12.0); Monocyte# 1.21 X10^3/uL; Monocyte% 8.4 % (0-10); NRBC Flagged by Analyzer 0 % (0-5); Neutrophil # 11.48 X10^3/uL (2.7-7.7); Platelet Count 307 K/mm3 (150-450); RBC Distribution Width CV 11.4 % (11.6-14.6); Red Blood Count 3.95 M/mm3 (4.2-5.4); White Blood Count 14.3 K/mm3 (4.4-11.0)
[2023-03-09 06:47] LABS: AST(SGOT) 207 U/L (15-37); Alanine Aminotransfer ALT/SGPT 402 U/L (13-56); Albumin, Serum 2.7 g/dL (3.2-5.0); Alkaline Phosphatase 93 U/L (45-117); Anion Gap 4 (5-15); BUN 4 mg/dL (7-18); BUN/Creat Ratio 6.5 RATIO (10-20); Calcium,Total 8.3 mg/dL (8.5-10.1); Chloride 112 mmol/L (98-107); Creatinine, Serum 0.62 mg/dL (0.55-1.02); EST Glomerular Filtration Rate 116 mL/min (>60); Est Glom Filt Rate - Afr Amer 140 mL/min (>60); Estimated Creatinine Clearance 121.99 ml/min; Globulin 2.8 g/dL (2.2-4.2); Glucose 124 mg/dL (74-106); Potassium 3.7 mmol/L (3.5-5.1); Protein, Total 5.5 g/dL (6.4-8.2); Sodium Level 140 mmol/L (136-145)
--- NOTE | 2023-03-09 06:59 | NURSING ---
Asked patient to walk in the hallway several times overnight. Patient has not done so. Education provided on reasons to walk after abdominal surgery.
--- NOTE | 2023-03-09 07:23 | PN.SURG_ITS ---
Subjective Subjective Patient states she is doing well if she is sitting still but when she moves around and walks she has pain in the right upper quadrant. She denies nausea or vomiting. Objective Data Objective Data Vital Signs: Vital Signs Temp Pulse Resp BP Pulse Ox O2 Del Method 98.4 F 83 20 H 103/70 98 Room Air 03/09/23 05:41 03/09/23 05:41 03/09/23 05:41 03/09/23 05:41 03/09/23 05:41 03/09/23 05:41 Oxygen Delivery Method Room Air Weight: 156 lb 8.451 oz Body Mass Index (BMI) 24.5 Intake & Output: Intake and Output for Last 24 Hours 03/07/23 03/08/23 03/09/23 23:59 23:59 23:59 Intake Total 3119.25 / 3119.25 773.33 / 773.33 Output Total 1600 / 1600 Balance 3119.25 / 2119.25 -826.67 / -826.67 Lab / Micro Data 03/09/23 06:10 03/09/23 06:10 Labs: Laboratory Results - last 24 hr 03/09/23 06:10: WBC 14.3 H, RBC 3.95 L, Hgb 11.7 L, Hct 34.7 L, MCV 87.8, MCH 29.6, MCHC 33.7, RDW Std Deviation 37.0, RDW Coeff of Dimas 11.4 L, Plt Count 307, MPV 9.2, Immature Gran % (Auto) 0.600, Neut % (Auto) 80.0 H, Lymph % (Auto) 10.9 L, Teller % (Auto) 8.4, Eos % (Auto) 0.0, Baso % (Auto) 0.1, Absolute Neuts (auto) 11.5 H, Absolute Lymphs (auto) 1.56, Nucleated RBC % 0, Sodium 140, Potassium 3.7, Chloride 112 H, Carbon Dioxide 24.0, Anion Gap 4 L, BUN 4 L, Creatinine 0.62, Estim Creat Clear Calc 121.99, Est GFR (MDRD) Af Amer 140, Est GFR (MDRD) Non-Af 116, BUN/Creatinine Ratio 6.5 L, Glucose 124 H, Calcium 8.3 L, Total Bilirubin 0.50, AST 207 H, ALT 402 H, Alkaline Phosphatase 93, Total Protein 5.5 L, Albumin 2.7 L, Globulin 2.8, Albumin/Globulin Ratio 1.0 Radiography Diagnostic Testing: Radiology Impression Gallbladder Ultrasound 03/08/23 02:05 IMPRESSION: 1. Multiple gallstones with thickening of the gallbladder wall. Acute cholecystitis cannot be excluded. 2. Liver cysts. 3. Hepatomegaly. Electronically Signed: Ronald Chaves MD at 8:17 EST , Cholangiogram 03/08/23 10:45 IMPRESSION: 1. Status post intraoperative cholangiogram Electronically Signed: Jose Burrell MD at 15:39 EST , Endo Retro Cholangiopancreatogram 03/08/23 16:20 IMPRESSION: ERCP with balloon sphincterotomy and stent placement. Electronically Signed: Jose Borden MD at 18:47 EST , Physical Exam Const oriented x3 and no apparent distress Resp normal respiratory effort GI soft to palpation Palpation: tender RUQ Assessment & Plan Assessment/Plan (1) Acute cholecystitis: PLAN: The patient had acute cholecystitis with choledocholithiasis. Patient had laparoscopic cholecystectomy yesterday followed by subsequent ERCP with stone removal and stent placement. The patient says she is very sore and getting up and walking around. I encouraged her to try her pain medication. She says the pain did decrease significantly with pain meds. I started on clear liquid diet. Once she tolerates this I will advance her to regular diet. Possibly discharge later today. Jagdeep Colunga MD Pager: [facility] [address] [place] [address], [address] [place] [address] Office: Capacity Legal Training Officer Reflex Medical hold order details:: IF a medical hold is selected below, a suggested order for a MEDICAL HOLD will reflex upon signing the document. Next of kin: [place] law dictates a PRIORITY LIST for identifying legal decision-maker/legal next of kin in the following order (LNOK): 1st: The patient?s legal guardian, if any 2nd: The patient's spouse (if status is questionable, consult Risk Management) 3rd: The patient?s adult child(kimberley) (majority, if multiple children) 4th: The patient?s parents 5th: The patient?s adult siblings (majority, if multiple children siblings)
[2023-03-09] MEDS: Morphine 2 MG/ML Syringe IV ×2 (09:33→17:27)
[2023-03-09] MEDS: Docusate Sodium 100 MG Capsule PO (09:34)
--- NOTE | 2023-03-09 15:24 | PCM.DC.SUM ---
Providers Date of Admission: 03/08/23 Primary Care Physician: ATILIO Hamilton Consultations 03/08/23 15:06 Consult: Gastroenterology Routine Consulting Provider: Edgardo Still Reason for Consult: choledocholithiasis EMERGENT Consult: No MD Notified: Yes Date Notified: 03/08/23 Time Notified: 12:59 Method of Notification: Verbal Reason For Visit: ACUTE CHOLECYSTITIS Diagnosis Discharge Diagnosis (1) Acute cholecystitis: Status: Acute Code(s): K81.0 - Acute cholecystitis Plan: The patient had acute cholecystitis with choledocholithiasis. Patient had laparoscopic cholecystectomy yesterday followed by subsequent ERCP with stone removal and stent placement. The patient says she is very sore and getting up and walking around. I encouraged her to try her pain medication. She says the pain did decrease significantly with pain meds. I started on clear liquid diet. Once she tolerates this I will advance her to regular diet. Possibly discharge later today. Jagdeep Colunga MD Pager: [facility] [address] [place] [address], [address] [place] [address] Office: Medications at Discharge Home Medications lisdexamfetamine 30 mg capsule (Vyvanse) 30 mg PO DAILY ADHD 02/25/23 sulfamethoxazole 800 mg-trimethoprim 160 mg tablet (Bactrim DS) 1 tab PO BID ANTIBIOTIC 03/08/23 acetaminophen 325 mg tablet 650 mg (2 x 325 mg) PO Q6H PRN PRN Pain 1-10 Or Fever >100.7 #0 tabs 03/09/23 oxycodone 5 mg tablet 5 mg PO Q4H PRN PRN Pain Score 4-10 5 days #20 tabs 03/09/23 Hospital Course Operations cholecystecomy and ERCP Summary of Care Provided Hospital Course: The patient was admitted with acute cholecystitis. She was taken for surgery and had laparoscopic cholecystectomy. During cholangiograms the patient was found to have an obstructing stone in the distal common bile duct. Other than that the patient surgery went well. Later that afternoon the patient was taken by Dr. Anaya for ERCP and stone removal and stent placement. After surgery the patient was started on a diet. Once tolerating a diet the patient will be discharged home. Physical Exam Const oriented x3 and no apparent distress Resp normal respiratory effort GI soft to palpation Palpation: tender Weight / BMI Weight Weight: 156 lb 8.451 oz Body Mass Index (BMI) 24.5 ABG / Lab / Microbiology Data 03/09/23 06:10 03/09/23 06:10 Laboratory: Laboratory Results - last 24 hr 03/09/23 06:10: WBC 14.3 H, RBC 3.95 L, Hgb 11.7 L, Hct 34.7 L, MCV 87.8, MCH 29.6, MCHC 33.7, RDW Std Deviation 37.0, RDW Coeff of Dimas 11.4 L, Plt Count 307, MPV 9.2, Immature Gran % (Auto) 0.600, Neut % (Auto) 80.0 H, Lymph % (Auto) 10.9 L, [place] % (Auto) 8.4, Eos % (Auto) 0.0, Baso % (Auto) 0.1, Absolute Neuts (auto) 11.5 H, Absolute Lymphs (auto) 1.56, Nucleated RBC % 0, Sodium 140, Potassium 3.7, Chloride 112 H, Carbon Dioxide 24.0, Anion Gap 4 L, BUN 4 L, Creatinine 0.62, Estim Creat Clear Calc 121.99, Est GFR (MDRD) Af Amer 140, Est GFR (MDRD) Non-Af 116, BUN/Creatinine Ratio 6.5 L, Glucose 124 H, Calcium 8.3 L, Total Bilirubin 0.50, AST 207 H, ALT 402 H, Alkaline Phosphatase 93, Total Protein 5.5 L, Albumin 2.7 L, Globulin 2.8, Albumin/Globulin Ratio 1.0 Radiography Diagnostic Testing: Radiology Impression Cholangiogram 03/08/23 10:45 IMPRESSION: 1. Status post intraoperative cholangiogram Electronically Signed: Jose Burrell MD at 15:39 EST , Endo Retro Cholangiopancreatogram 03/08/23 16:20 IMPRESSION: ERCP with balloon sphincterotomy and stent placement. Electronically Signed: Jose Borden MD at 18:47 EST , D/C Instructions Discharge Diet: Light diet - advance as tolerated Discharge Activity: May Not Drive (for 2-3 days or while taking narcotic pain medications.) and May Shower Lifting Restrictions: 20 lbs for 2 weeks Additional Activity Instructions: Pain medication may cause nausea. You should typically eat light foods as you take your pain medications. Pain medication may also cause constipation. If this is a problem for you, please discuss with your doctor. Call your doctor if your incision/area has: Continuous Slow Oozing, Sudden Increased Bleeding, Increased Pain/ Swelling, Increased Redness and Foul Smelling Discharge Call your doctor if you observe: Fever of 101 or Higher Suture Line Care: Avoid Pulling/Pushing and Avoid Pinching/Bending Remove Dressing in: 2 days Additional Dressing/Incision Instructions: Leave operative bandaids on for 2 days. When you remove dressing, leave Steri-Strips in place for 7 to 10 days and then remove them Please Follow Up With: Jagdeep Colunga MD When: Please call to schedule 2 week follow up appointment. [phone] Meaningful Use Info Meaningful Use Diagnoses (Choose all that apply): None applicable Discharge Plan Admission Admit Date/Time: 03/08/23 10:48 Attending Provider: Jagdeep Colunga Primary Care Provider: Yancy Barcenas Consulting Providers: Carmen Ulloa Discharge Orders/Prescriptions Prescriptions: New acetaminophen 325 mg Tablet 650 mg PO Q6H PRN PRN (Reason: Pain 1-10 Or Fever >100.7) Qty: 0 0RF oxycodone 5 mg Tablet 5 mg PO Q4H PRN PRN (Reason: Pain Score 4-10) 5 Days Qty: 20 0RF Continued sulfamethoxazole-trimethoprim [Bactrim DS] 800-160 mg tablet 1 tab PO BID Rx Instructions: TAKE ONE TABLET BY MOUTH TWICE DAILY FOR 10 DAYS. lisdexamfetamine [Vyvanse] 30 mg capsule 30 mg PO DAILY Referrals / Follow Up: Yancy Barcenas, CONFIGURATION MANAGEMENT ADVISOR-C [Primary Care Provider] - Disposition Disposition (needs filled in before D/C Order can be placed): Home, Self Care
[2023-03-09] MEDS: 0.9% Normal Saline (1000mL) 1,000 ML 40 ML IV (17:27)
[2023-03-10 02:35] VITALS: BP 108/78; PULSE 73; RESP 16; TEMP 36.6; O2SAT 98
[2023-03-10] MEDS: oxyCODONE 5 MG Tablet PO ×2 (02:45→09:03)
[2023-03-10 05:48] VITALS: BP 99/69; PULSE 62; RESP 16; TEMP 36.6; O2SAT 97
[2023-03-10] MEDS: Acetaminophen 325 MG Tablet 650 MG PO (05:51)
[2023-03-10 05:53] VITALS: BMI 24.7
--- NOTE | 2023-03-10 08:48 | PCM.PN.SRG ---
Subjective Subjective Patient states pain is more controlled than yesterday, patient is hoping to be able to go home today. Objective Data Objective Data Vital Signs: Vital Signs Temp Pulse Resp BP Pulse Ox O2 Del Method 97.9 F 62 16 99/69 97 Room Air 03/10/23 05:48 03/10/23 05:48 03/10/23 05:48 03/10/23 05:48 03/10/23 05:48 03/10/23 05:48 Oxygen Delivery Method Room Air Weight: 157 lb 13.616 oz Body Mass Index (BMI) 24.7 Intake & Output: Intake and Output for Last 24 Hours 03/08/23 03/09/23 03/10/23 23:59 23:59 23:59 Intake Total 3119.25 / 3119.25 3523.33 / 3523.33 1000 / 1000 Output Total 1999 / 1999 400 / 400 Balance 3119.25 / 2119.25 1523.33 / 1523.33 600 / 600 Lab / Micro Data 03/09/23 06:10 03/09/23 06:10 Physical Exam Const oriented x3 and no apparent distress Resp normal respiratory effort GI soft to palpation GI Narrative: Incisions clean dry and intact with dressings Palpation: tender RUQ and other (And near incisions) Assessment & Plan Assessment/Plan (1) S/P laparoscopic cholecystectomy: (2) S/P ERCP: PLAN: Plan Patient tolerated diet if pain is able to be controlled will DC home. Rebecca Peacock M.D. Pager: [phone] [facility] [address] [place] [address], [facility], [address] [place] [address] Office: [phone]
[2023-03-10] MEDS: Docusate Sodium 100 MG Capsule PO (09:03)
[2023-03-10 09:10] VITALS: BP 92/63; PULSE 78; RESP 16; TEMP 36.6; O2SAT 98
[2023-03-10] MEDS: Ibuprofen 400 MG Tablet PO (10:40)
== END 2023-03-10 11:34 | disposition home or self-care (01) ==
LOC: ED 03-08 10:26 → ACINP 03-08 11:04 → ED 03-08 13:12 → ACINP 03-08 13:14 → MS3 03-08 17:08
PROVIDERS: Internal Medicine Gastroenterology; Admitting Provider Physician Assistant; Emergency Provider Emergency Medicine; PCP Nurse Practitioner Family; Referring Provider Physician Assistant; Visit Provider Surgery
PROC: (CPT 47610; principal; 2023-03-08 10:40)
DX: K80.66 Calculus of gallbladder and bile duct with acute and chronic cholecystitis without obstruction (principal); F17.290 Nicotine dependence, other tobacco product, uncomplicated; I45.10 Unspecified right bundle-branch block; R06.02 Shortness of breath
CPT/HCPCS: 47563; 43274; 43264; 36415; 71275; 74177; 74300; 74330; 76000; 76705; 80048; 80053; 80076; 81001; 83690; 84703; 85025; 88304; 93005; 94668; 96361; 96374; 96375; 96376; 99221; 99252; 99284; 99406; J7030; J7120; Q9967; A4216; G0378; G0463; J1610; J2405

== ENCOUNTER 2023-04-11 10:36 | Day surgery (SDC) | payer MEDICAID, SELFPAY ==
[2023-04-11] VITALS (9 sets, daily range): BP systolic 90–96; BP diastolic 61–76; PULSE 69–102; RESP 16; TEMP 36.3–36.6; O2SAT 99–100; BMI 23.3
--- NOTE | 2023-04-11 10:46 | EKG12_ITS ---
Test Reason : PRE OP Blood Pressure : / mmHG Vent. Rate : 065 BPM Atrial Rate : 065 BPM P-R Int : 152 ms QRS Dur : 100 ms QT Int : 406 ms P-R-T Axes : 052 051 062 degrees QTc Int : 422 ms Sinus rhythm with marked sinus arrhythmia Otherwise normal ECG When compared with ECG of 08-MAR-2023 10:28, No significant change was found Confirmed by SCARLETT CARBAJAL, HENRY ([id number]), editorial writer JEFFREY CONNOLLY ([id number]) on 04/13/2023 6:46:57 AM Referred By: Yancy Barcenas Confirmed By:HENRY PANTOJA MD
--- NOTE | 2023-04-11 10:59 | PCM.HP.BLA ---
History and Physical Date of Admission: 04/11/23 cholecystitis dos 03/09 Details: ROSE MARIE GRIGGS, is a 37 F who presents to the office today for HFU. [facility] 03.08.23- choledocholithiasis. Pt is feeling better after hospital visit. Is still having RUQ discomfort. Is concerned about getting the stent removed that was placed during ERCP. 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 Hurts to bend over or eat. BM are good is not having diarrhea. ROS Const Constitutional: No fatigue ENT ENT: No difficulty swallowing Gastro GI: Positive for abdominal pain, bloating, cramping and nausea/dyspepsia; No belching, change in bowel habits, change in stool character, coffee ground emesis, constipation, diarrhea, heartburn, difficulty swallowing, feeling full early, excessive flatus, incontinent of stools, Vomiting blood/hematemesis, Blood in stool, loose stools, Black,tarry stools, pain with swallowing, vomiting or other Musc Musculoskeletal: No joint pain Skin Skin: No yellowing of the eye or itchy eyes Psych Psychiatric: No anxiety and No depression Endo Endocrine: No fatigue Aller/Imm Allergy/Immunologic: No itchy eyes Franki/Lymp Hematologic/Lymphatic: No easy bleeding or easy bruising Exam Const General: cooperative and comfortable Nutritional Appearance: average body habitus and well nourished [facility] Head: normal to inspection Ears: hearing grossly normal bilaterally Nose: external nose normal Face and sinus: normal facial exam Mouth: oral mucosae normal Throat: posterior oropharynx normal Eyes General: appearance normal, both eyes and all related structures Neck Neck: normal visual inspection Chest Chest palpation & inspection: normal inspection of the chest and normal palpation of entire chest wall Resp Effort & Inspection: normal respiratory effort Auscultation: Bilateral: Clear to Auscultation Cardio Palpation: normal PMI Rate: regular rate Rhythm: regular rhythm GI Inspection: normal to inspection Auscultation: normal bowel sounds Percussion: normal to percussion Palpation: no hepatosplenomegaly Skin General: no rashes or lesions noted Neuro General: patient alert Extrem General: normal to inspection Psych Affect: normal affect Quality Reporting Tobacco Screening ([facility] 138) Smoking Status: Current every day smoker Assessment and Plan Assessment and Plan (1) S/P ERCP: Status: Acute Plan: 37-year-old with acute gallstone induced cholecystitis with concomitant choledocholithiasis discovered after she underwent an laparoscopic cholecystectomy. She had multiple stones removed from her common bile duct and a temporary stent was placed in the common bile duct. She will get scheduled for repeat ERCP with stent removal or replacement. I think most of the pain that she gets is more associated with her bowel syndrome than anything else. Therefore I will start her on dicyclomine 20 mg p.o. every 8 hours as needed. (2) S/P laparoscopic cholecystectomy: Status: Acute I have examined the patient and the H&P has been reviewed. There are no clinical changes since date of exam.
[2023-04-11] MEDS: Lactated Ringers 1,000 ML 15 ML IV ×2 (11:12→12:46)
[2023-04-11 11:27] LABS: Internal QC Validated? YES +Cl - CLEAR BKGD; Pregnancy, Urine Negative Negative
[2023-04-11 11:28] LABS: Record Kit Lot#,Urine Preg 7180586
--- NOTE | 2023-04-11 12:12 | RAD_ITS ---
STUDY: ERCP. REASON FOR EXAM: Female, 37 years old. Biliary stent. FLUOROSCOPY TIME (if supplied): ( 1 minute and 35 seconds. ) minutes/seconds. 13.22 mGy TECHNIQUE: An intraoperative cholangiogram was performed by the surgeon. Imaging was submitted. COMPARISON: None. FINDINGS: A biliary stent is seen. The biliary stent was removed. No intraluminal filling defects seen on the last image. RAD/ERCP Biliary/Pancreas IMPRESSION: Status post stent removal. Electronically Signed: Daniel Bernstein MD at 13:16 EST ,
--- NOTE | 2023-04-11 12:46 | OP.ERCP_ITS ---
Patient Name: Mariel Denise Procedure Date: 04/11/2023 11:50 AM Date of : 1985 Age: 37 Procedure: ERCP Indications: Bile duct stone(s), Biliary stent removal Providers: Santiago Anaya DO Medicines: Monitored Anesthesia Care Patient Profile: This is a 37 year old female. Refer to note in patient chart for documentation of history and physical. Patient has symptoms of acute right upper quadrant abdominal pain and chronic dyspepsia. Her most recent ERCP for biliary evaluation, ERCP for stent and ERCP for stone removal was within the past three months. She is status post laparoscopic cholecystectomy within the past three months. Complications: No immediate complications. Procedure: Pre-Anesthesia Assessment: - Prior to the procedure, a History and Physical was performed, and patient medications and allergies were reviewed. The patient is competent. The risks and benefits of the procedure and the sedation options and risks were discussed with the patient. All questions were answered and informed consent was obtained. Patient identification and proposed procedure were verified by the physician in the pre-procedure area. Mental Status Examination: alert and oriented. Airway Examination: normal oropharyngeal airway and neck mobility. Respiratory Examination: clear to auscultation. CV Examination: normal. Prophylactic Antibiotics: The patient does not require prophylactic antibiotics. Prior Anticoagulants: The patient has taken no anticoagulant or antiplatelet agents. ASA Grade Assessment: II - A patient with mild systemic disease. After reviewing the risks and benefits, the patient was deemed in satisfactory condition to undergo the procedure. The anesthesia plan was to use monitored anesthesia care (MAC). Immediately prior to administration of medications, the patient was re-assessed for adequacy to receive sedatives. The heart rate, respiratory rate, oxygen saturations, blood pressure, adequacy of pulmonary ventilation, and response to care were monitored throughout the procedure. The physical status of the patient was re-assessed after the procedure. After obtaining informed consent, the scope was passed under direct vision. Throughout the procedure, the patient's blood pressure, pulse, and oxygen saturations were monitored continuously. The Duodenoscope was introduced through the mouth, and advanced to the duodenum and used to inject contrast into the bile duct and ventral pancreatic duct. The ERCP was accomplished without difficulty. The patient tolerated the procedure well. Scope In: 12:16:07 PM Scope Out: 12:27:10 PM Total Procedure Duration Time 0 hours 11 minutes 3 seconds Findings: The line helper film was normal. The esophagus was successfully intubated under direct vision. The scope was advanced to a normal major papilla in the descending duodenum without detailed examination of the pharynx, larynx and associated structures, and upper GI tract. The upper GI tract was grossly normal. A straight Roadrunner wire was passed into the biliary tree. The short-nosed traction sphincterotome was passed over the guidewire and the bile duct was then deeply cannulated. Contrast was injected. I personally interpreted the bile duct and pancreatic duct images. There was brisk flow of contrast through the ducts. Image quality was excellent. Contrast extended to the entire biliary tree. Opacification of the entire biliary tree except for the cystic duct and gallbladder was successful. The maximum diameter of the ducts was 8 mm. The entire biliary tree except for the cystic duct and gallbladder and lower third of the main bile duct contained multiple stones, the largest of which was 13 mm in diameter. The main bile duct was diffusely dilated, with a stone causing an obstruction. The largest diameter was 8 mm. A cholecystectomy had been performed. A 5 mm biliary sphincterotomy was made with a braided traction (standard) sphincterotome using ERBE electrocautery. There was no post-sphincterotomy bleeding. The biliary tree was swept with a 12 mm balloon starting at the bifurcation. Sludge was swept from the duct. All stones were removed. One stent was removed from the biliary tree using a Gutierrez net. The stent was found to be partially occluded via the water column test. Impression: - The entire main bile duct was dilated, with a stone causing an obstruction. - The patient has had a cholecystectomy. - Choledocholithiasis was found. Complete removal was accomplished by biliary sphincterotomy and balloon extraction. - A biliary sphincterotomy was performed. - The biliary tree was swept. - One stent was removed from the biliary tree. Procedure Code(s): --- Professional --- 28260, Endoscopic retrograde cholangiopancreatography (ERCP); with removal of foreign body(s) or stent(s) from biliary/pancreatic duct(s) 56018, Endoscopic retrograde cholangiopancreatography (ERCP); with removal of calculi/debris from biliary/pancreatic duct(s) 71455, Endoscopic retrograde cholangiopancreatography (ERCP); with sphincterotomy/papillotomy 49737, 26, Combined endoscopic catheterization of the biliary and pancreatic ductal systems, radiological supervision and interpretation CPT copyright 2021 [employer]. All rights reserved. The codes documented in this report are preliminary and upon brim buster review may be revised to meet current compliance requirements. Santiago Anaya DO 04/11/2023 12:45:48 PM This report has been signed electronically. Number of Addenda: 0 Note Initiated On: 04/11/2023 11:50 AM
--- NOTE | 2023-04-11 12:46 | OP.CCLET_ITS ---
04/11/2023 Ryne Hamilton Re : ERCP procedure for Mariel Denise Dear Swapna This procedure was performed on Tuesday, April 11, 2023. My impressions and recommendations are as follows: Impressions : - The entire main bile duct was dilated, with a stone causing an obstruction. - The patient has had a cholecystectomy. - Choledocholithiasis was found. Complete removal was accomplished by biliary sphincterotomy and balloon extraction. - A biliary sphincterotomy was performed. - The biliary tree was swept. - One stent was removed from the biliary tree. Recommendations : My findings are described in the full procedure note, which is enclosed. If I can be of further assistance, please feel free to contact me at . Sincerely, Santiago Anaya, 04/11/2023 12:45:48 PM This report has been signed electronically.
== END 2023-04-11 13:32 | disposition home or self-care (01) ==
LOC: EN 10:39 → AC 10:41
PROVIDERS: Anesthesiology; PCP Nurse Practitioner Family; Referring Provider Nurse Practitioner Family; Visit Provider Internal Medicine Gastroenterology
PROC: (CPT 43260; principal; 2023-04-11 11:25)
DX: K80.43 Calculus of bile duct with acute cholecystitis with obstruction (principal); F17.290 Nicotine dependence, other tobacco product, uncomplicated; Z90.49 Acquired absence of other specified parts of digestive tract
CPT/HCPCS: 43264; 43275; 74330; 76000; 81025; 93005; J7120; J0330; J2405

== ENCOUNTER 2023-09-23 21:35 | Emergency (ER) | payer MEDICAID, SELFPAY ==
[2023-09-23 21:37] VITALS: BP 107/65; PULSE 96; RESP 16; TEMP 36.3; O2SAT 100; BMI 22.3
[2023-09-23 23:04] LABS: Red Blood Cells-Urine 0 SEEN /hpf (0-5)
[2023-09-23 23:18] LABS: Absolute Lymphocyte Count 2.64 X10^3/uL (0.83-4.51); Absolute Neutrophil Count 8.1 X10^3/uL (2.0-7.7); Basophil# 0.06 X10^3/uL; Basophil% 0.5 % (0-1); Eosinophil# 0.09 X10^3/uL; Eosinophils% 0.8 % (0-5); Hematocrit 38.2 % (37-47); Hemoglobin 12.8 g/dL (12.0-15.0); Lymphocyte # 2.64 X10^3/ul (0.83-4.51); Lymphocyte % 22.7 % (19-41); Mean Corp Hgb Conc 33.5 g/dL (32-36); Mean Corpuscular Hgb 30.3 pg (27.0-32.0); Mean Corpuscular Volume 90.5 fL (81-99); Mean Platelet Vol. 9.4 fl (6.2-12.0); NRBC Flagged by Analyzer 0 % (0-5); Neutrophil # 8.11 X10^3/uL (2.7-7.7); Neutrophil % 69.7 % (47-70); Platelet Count 316 K/mm3 (150-450); RBC Distribution Width CV 11.9 % (11.6-14.6); RBC Distribution Width SD 39.7 fl (35.1-43.9); Red Blood Count 4.22 M/mm3 (4.2-5.4); White Blood Count 11.6 K/mm3 (4.4-11.0)
--- NOTE | 2023-09-23 23:25 | CT_ITS ---
STUDY: CT ABDOMEN AND PELVIS WITH CONTRAST REASON FOR EXAM: Female, 37 years old patient with upper abdominal pain. RADIATION DOSAGE (If Supplied By Facility): CTDIvol = ( 9.45 ) mGy, DLP = ( 442.04 ) mGycm TECHNIQUE: Transaxial images were obtained from the dome of the diaphragm to the symphysis pubis without oral contrast. 100 mL of IV Isovue-370 was administered. Sagittal and coronal images were reconstructed. Individualized dose optimization techniques were used for this CT. COMPARISON: CT abdomen and pelvis dated March 06, 2023. FINDINGS: The visualized lung bases are unremarkable. The visualized portions of the heart are within normal limits. There are scattered lucencies in the liver that probably represent small cysts. The largest cyst of the left lobe of liver and measures 1.9 cm in size. Liver otherwise has a grossly normal appearance. There is non-visualization of the gallbladder, which may be secondary to either contraction or a prior cholecystectomy. Normal spleen. Normal pancreas. Normal bilateral adrenal glands. Normal right kidney. Normal left kidney. Normal visualized stomach. There is no obvious dilated bowel, ascites or pneumoperitoneum. The small bowel has a grossly normal appearance. There is stool and air gas visible throughout the colon. There is non-visualization of the appendix. Normal abdominal aorta. Normal inferior vena cava. Normal retroperitoneum. Normal urinary bladder. Normal visualized uterus. The patient has an IUD. Normal abdominal wall. There is a large atypical hemangioma visible in L2. Imaged thoracic and lumbar vertebral bodies otherwise have normal appearance. Bony pelvis is within normal limits in appearance. CT/Abdomen/Pelvis W IV Cont ONLY IMPRESSION: 1. No CT evidence of acute intra-abdominal disease. 2. Probable cholecystectomy. Electronically Signed: Deb Sierra MD at 0:13 EDT ,
--- NOTE | 2023-09-23 23:29 | ED.VIS.GI ---
HPI HPI - GI History of Present Illness Chief Complaint: Abd Pain Informant: patient and spouse/S.O. Narrative Narrative: Patient states she has been having epigastric and suprapubic abdominal discomfort for the last week. Also nausea, no vomiting, no diarrhea no blood in her stool. No fevers or chills. Pain occasionally radiates generally into her low back when she has the pain becomes severe, this is nonlateralizing. Some urinary frequency. She states these of the same symptoms that she was having for sometime in the beginning of the year before she was diagnosed with acute calculus cholecystitis with choledocholithiasis, and then after her cholecystectomy and biliary stent, she had more stones that needed to be extracted because she had it obstruct again. She is concerned that is what is going on now because this is similar pain even though it is lower abdomen and upper abdomen, while at the same time telling me this, she states that the lower pain does somewhat feel like cyst pain she has had in the past as well, and all of this also feels like she may have a bladder infection or kidney infection or a kidney stone because she has had those symptoms at the same time as the other problem. She spends more time telling me about how she was misdiagnosed in the past than talking to me about current issues. She states that her blood pressure was low at home and then follows that up by saying that her blood pressure is always low, and also that she came in now a week after the onset of symptoms because she did not want to wait too long and be septic. [facility] Medical History ADHD Easy bruising Seizures Electronic cigarette use History of edema Kidney stones Smoker Migraines Home Medications ?Medication ?Instructions ?Recorded ?Last Taken ?Type lisdexamfetamine 30 mg capsule 30 mg PO DAILY ADHD 02/25/23 03/05/23 History (Vyvanse) sulfamethoxazole 800 1 tab PO BID #6 TABLETS 09/24/23 Unknown Rx mg-trimethoprim 160 mg tablet Allergy/AdvReac Type Severity Reaction Status Date / Time shrimp Allergy Mild Swelling Verified 09/23/23 21:37 hydrocodone (From [place]) AdvReac Nausea Verified 09/23/23 21:37 Surgical History History of dilation and curettage History of cystoscopy S/P ERCP S/P laparoscopic cholecystectomy Social History Smoking Status: Current every day smoker tobacco type: e-cigarettes ROS ROS ED Constitutional Constitutional ED: Denies chills or fever(s) Eyes Eyes: Denies change in vision or diplopia ENT ENT ED: Denies rhinorrhea or sore throat Cardiovascular Cardiovascular: Denies chest pain, lightheadedness, palpitations or syncope Respiratory/Chest Respiratory/Chest: Denies cough or dyspnea Gastrointestinal Gastrointestinal: Reports abdominal pain and nausea; Denies diarrhea or vomiting Genitourinary Genitourinary ED: Reports urinary frequency; Denies dysuria or hematuria Musculoskeletal Musculoskeletal: Reports back pain; Denies neck pain Integumentary Denies abscess or rash Neurologic Neurologic: Denies headache(s), paresthesias or weakness Psychiatric Psychiatric: Denies suicidal thoughts EXAM Physical Exam Const Vital Signs: 09/23/23 21:37 09/23/23 23:36 Temperature 97.4 F L 98.2 F Temperature Source Temporal Oral Pulse Rate 96 76 Respiratory Rate 16 16 Blood Pressure 107/65 94/61 Blood Pressure Mean 79 72 Pulse Ox 100 100 Oxygen Delivery Method Room Air Room Air Positive well nourished and well developed Constitutional Narrative: well-appearing, nad. conversive in full sentences. General Appearance ED: well developed and NAD HEENT Reports moist mucous membranes normocephalic and atraumatic Eyes PERRL and EOMs intact bilaterally General Eye ED: Negative for scleral icterus Neck full ROM and supple Resp normal respiratory effort and clear to auscultation bilaterally Cardio regular rate, regular rhythm and no murmurs GI non-distended GI Narrative: Tender epigastrium and suprapubic areas mostly, some of the right upper quadrant. No guarding or rebound anywhere. Tenderness is not severe anywhere. No distention no palpable masses. Auscultation: normoactive bowel sounds Palpation: soft Back/Spine no CVA tenderness General Back: other FROM Extremity normal to inspection General Extremety ED: Negative for edema, pulses abnormal or tenderness General Extremity: Negative for edema or pulses abnormal Neuro oriented x3, CN's II-XII intact bilaterally and no sensory deficits noted Sensorium / Orientation: awake and alert Motor Exam: strength 5/5 throughout Psych mental status grossly normal and thought process normal Skin no rashes or lesions noted and no wounds General Skin Exam: Negative for jaundice MDM MDM MDM Narrative Medical decision making narrative: Patient presents on Sunday night. I do not have ultrasound available right now to obtain a right upper quadrant detailed image series of her biliary plumbing. She states that she has since had her biliary stent taken out. I advised her that I am happy to obtain a CT scan, but if it shows no stones, it is not sensitive enough to rule that out. Upon telling her this, she tells me that the last time she had a CT scan it did not show the stones, I advised her that is exactly what I told her and we are in agreement with each other. I advised her I am happy to obtain labs and check her urine, if she has biliary obstruction it would be very likely that her bilirubin would be elevated, as well as give her fluids, nausea and pain medication she is amenable to that. Labs obtained, there is a mild leukocytosis without a leftward shift or bandemia, the rest of her labs are normal. This includes her liver enzymes, lactic acid ruling out sepsis in this context of normal vital signs and well-appearing a normal exam, and her total bilirubin and other liver enzymes are normal. Although I cannot definitively tell her she does not have any biliary stones, I can tell her that she does not have a biliary obstruction acutely. Her CT is obtained, I reviewed the images and report which I agree with. It is negative for anything acute and essentially normal. Her urinalysis is mixed. There are signs of infection and lack of pyuria. I am sending her for culture, and treating her for a bladder infection since her symptoms are consistent with that; suprapubic discomfort, some urinary symptoms without dysuria, and radiation of pain into her back nonlateralizing. I do not think she has pyelonephritis. She is given a 3-day course of Bactrim along with a dose here and sent for culture and she is advised to follow-up with her doctor. She is comfortable with that plan. We considered ordering an ultrasound, but she would have to wait 7 hours for that and given the test results and explanation for her symptoms I do not think that is indicated or necessary now. Lab Data Attestation: I reviewed the patient's lab results. Labs: Laboratory Results - last 24 hr 09/23/23 09/23/23 09/23/23 22:48 22:51 23:45 WBC 11.6 H RBC 4.22 Hgb 12.8 Hct 38.2 MCV 90.5 MCH 30.3 MCHC 33.5 RDW Std Deviation 39.7 RDW Coeff of [place] 11.9 Plt Count 316 MPV 9.4 Immature Gran % (Auto) 0.300 Neut % (Auto) 69.7 Lymph % (Auto) 22.7 [place] % (Auto) 6.0 Eos % (Auto) 0.8 Baso % (Auto) 0.5 Absolute Neuts (auto) 8.1 H Absolute Lymphs (auto) 2.64 Nucleated RBC % 0 Sodium 140 Potassium 3.5 Chloride 109 H Carbon Dioxide 28.0 Anion Gap 3 L BUN 9 Creatinine 0.81 Estim Creat Clear Calc 93.37 Est GFR (MDRD) Af Amer 102 Est GFR (MDRD) Non-Af 84 BUN/Creatinine Ratio 11.1 Glucose 71 L Lactic Acid 0.8 Calcium 8.8 Total Bilirubin 0.50 AST 23 ALT 36 Alkaline Phosphatase 70 Total Protein 6.9 Albumin 3.6 Globulin 3.3 Albumin/Globulin Ratio 1.1 Serum , Qual NEGATIVE Urine Color Yellow Urine Clarity Sl. Cloudy Urine pH 6.0 Ur Specific [place] 1.025 Urine Protein 15 H Urine Glucose (UA) Normal Urine Ketones 5 H Urine Occult Blood 25 H Urine Nitrite Positive H Urine Bilirubin Negative Urine Urobilinogen Normal Ur Leukocyte Esterase 25 H Urine RBC 0 SEEN Urine WBC 0-5 SEEN Ur Squamous Epith Cells 0-5 SEEN Urine Bacteria 4+ Urine Mucus 2+ Radiography Diagnostic Testing: Clinical Impression(s) from Imaging Studies Abdomen/Pelvis CT 09/23/23 23:[address]: 1[address] evidence of acute intra-abdominal disease. 2. Probable cholecystectomy. Electronically Signed: Deb Sierra MD at 0:13 EDT Reading Location ID and State: [facility] / [place] , Service support , Discharge Plan Triage Chief Complaint: Abd Pain ED Provider: Esdras Erickson Dx/Rx/DC Orders Clinical Impression: Acute cystitis without hematuria, Acute epigastric pain Instructions: ED Cystitis Female Adult Prescriptions: New sulfamethoxazole-trimethoprim 800-160 mg tablet 1 tab PO BID Qty: 6 0RF No Action lisdexamfetamine [Vyvanse] 30 mg capsule 30 mg PO DAILY Primary Care Provider: Yancy Barcenas Referrals: Yancy Barcenas, [employer] [Primary Care Provider] - 3-5 Days Print Language: Kiswahili Disposition Disposition: Home, Self Care
[2023-09-23 23:31] LABS: Color, Urine Yellow (Yellow); Glucose, Dipstick Normal (Normal); Ketone-Dipstick 5 mg/dl (Negative); Leukocyte Esterase-Dipstick 25 /ul (Negative); Nitrite-Dipstick Positive (Negative); Occult Blood-Urine 25 /ul (Negative); Protein-Dipstick 15 mg/dl (Negative); Specific Gravity, Urine 1.025 (1.002-1.030); Urine Bilirubin Dipstick Negative (Negative); Urine Clarity Sl. Cloudy (Clear); Urine Urobilinogen Normal (Normal)
[2023-09-23] MEDS: Morphine 4 MG/ML Syringe IV (23:32)
[2023-09-23] MEDS: Ondansetron 4 MG/2 ML Vial IV (23:32)
[2023-09-23] MEDS: 0.9% Normal Saline (500mL Bag) 500 ML 999 ML IV (23:32)
[2023-09-23 23:34] LABS: ALB/GLOB Ratio 1.1 RATIO (0.9-2.4); AST(SGOT) 23 U/L (15-37); Alanine Aminotransfer ALT/SGPT 36 U/L (13-56); Albumin, Serum 3.6 g/dL (3.2-5.0); Alkaline Phosphatase 70 U/L (45-117); Anion Gap 3 (5-15); BUN 9 mg/dL (7-18); BUN/Creat Ratio 11.1 RATIO (10-20); Calcium,Total 8.8 mg/dL (8.5-10.1); Chloride 109 mmol/L (98-107); Creatinine, Serum 0.81 mg/dL (0.55-1.02); EST Glomerular Filtration Rate 84 mL/min (>60); Est Glom Filt Rate - Afr Amer 102 mL/min (>60); Estimated Creatinine Clearance 93.37 ml/min; Globulin 3.3 g/dL (2.2-4.2); Glucose 71 mg/dL (74-106); Potassium 3.5 mmol/L (3.5-5.1); Protein, Total 6.9 g/dL (6.4-8.2); Sodium Level 140 mmol/L (136-145)
[2023-09-23 23:36] VITALS: BP 94/61; PULSE 76; RESP 16; TEMP 36.8; O2SAT 100
[2023-09-23 23:37] LABS: Internal QC Validated? YES +Cl - CLEAR BKGD; Pregnancy, Serum, hCG Quali. NEGATIVE Negative
[2023-09-23 23:56] LABS: Bacteria 4+ /hpf (None Seen); Mucous, Urine 2+ /hpf (<or=2+); Squamous Epithelial Cells - UA 0-5 SEEN /hpf (5-10); White Blood Cells 0-5 SEEN /hpf (0-5)
[2023-09-24 00:21] LABS: Lactic Acid 0.8 mmol/L (0.4-1.9)
[2023-09-24] MEDS: Smz/Tmp Ds Tablet 1 TABLET PO (00:52)
[2023-09-24 00:56] VITALS: BP 129/73; PULSE 64; RESP 15; TEMP 36.4; O2SAT 98
== END 2023-09-24 00:57 | disposition home or self-care (01) ==
PROVIDERS: Emergency Provider Emergency Medicine; PCP Nurse Practitioner Family; Visit Provider Emergency Medicine
DX: N30.00 Acute cystitis without hematuria (principal); R10.13 Epigastric pain; R11.0 Nausea; R35.0 Frequency of micturition; F17.290 Nicotine dependence, other tobacco product, uncomplicated; Z90.49 Acquired absence of other specified parts of digestive tract; Z79.899 Other long term (current) drug therapy
CPT/HCPCS: 74177; 80053; 81001; 83605; 84703; 85025; 96361; 96374; 96375; 99283; Q9967; A4216; J2405

== ENCOUNTER 2023-11-17 01:14 | Emergency (ER) | payer MEDICAID, SELFPAY ==
[2023-11-17 01:15] VITALS: BP 106/73; PULSE 96; RESP 18; TEMP 36.1; O2SAT 94; BMI 22.6
--- NOTE | 2023-11-17 02:55 | EKG12_ITS ---
Test Reason : BACK PAIN Blood Pressure : / mmHG Vent. Rate : 069 BPM Atrial Rate : 069 BPM P-R Int : 170 ms QRS Dur : 096 ms QT Int : 412 ms P-R-T Axes : 079 076 077 degrees QTc Int : 441 ms Normal sinus rhythm Normal ECG Confirmed by SCRALETT CARBAJAL, HENRY ([id number]), script editor JEFFREY CONNOLLY ([id number]) on 11/20/2023 2:04:16 PM Referred By: Confirmed By:HENRY PANTOJA MD
[2023-11-17] MEDS: Ketorolac 30 MG/ML Syringe IV (03:03)
[2023-11-17] MEDS: 0.9% Normal Saline (1000mL) 1,000 ML 999 ML IV (03:03)
[2023-11-17 03:17] LABS: Absolute Neutrophil Count 4.4 X10^3/uL (2.0-7.7); Basophil# 0.05 X10^3/uL; Basophil% 0.5 % (0-1); Eosinophil# 0.16 X10^3/uL; Eosinophils% 1.7 % (0-5); Hematocrit 36.8 % (37-47); Hemoglobin 12.3 g/dL (12.0-15.0); Lymphocyte % 41.1 % (19-41); Mean Corp Hgb Conc 33.4 g/dL (32-36); Mean Corpuscular Hgb 30.4 pg (27.0-32.0); Mean Corpuscular Volume 90.9 fL (81-99); Mean Platelet Vol. 8.8 fl (6.2-12.0); Monocyte% 9.5 % (0-10); NRBC Flagged by Analyzer 0 % (0-5); Neutrophil # 4.44 X10^3/uL (2.7-7.7); Neutrophil % 46.9 % (47-70); Platelet Count 290 K/mm3 (150-450); RBC Distribution Width CV 11.9 % (11.6-14.6); RBC Distribution Width SD 40.1 fl (35.1-43.9); Red Blood Count 4.05 M/mm3 (4.2-5.4); White Blood Count 9.5 K/mm3 (4.4-11.0)
--- NOTE | 2023-11-17 03:20 | RAD_ITS ---
INDICATION: chest pain EXAMINATION/TECHNIQUE: X-RAY - XR Chest 2 Views COMPARISON: No relevant prior comparison study available FINDINGS: LINES/DEVICES: None. LUNGS: No consolidation, edema or effusion. No pneumothorax. MEDIASTINUM AND CARDIOVASCULAR STRUCTURES: Cardiac silhouette not enlarged. Central airways and mediastinal contour are unremarkable. BONES AND SOFT TISSUES: Unremarkable. RAD/Chest PA and Lateral IMPRESSION: No radiographic evidence of acute cardiopulmonary disease. Electronically Signed: Falguni Luis MD at 4:51 EDT ,
[2023-11-17 03:31] LABS: Anion Gap 4 (5-15); BUN 10 mg/dL (7-18); BUN/Creat Ratio 16.7 RATIO (10-20); Chloride 107 mmol/L (98-107); EST Glomerular Filtration Rate 120 mL/min (>60); Est Glom Filt Rate - Afr Amer 145 mL/min (>60); Estimated Creatinine Clearance 124.84 ml/min; Glucose 84 mg/dL (74-106); Potassium 3.5 mmol/L (3.5-5.1); Sodium Level 140 mmol/L (136-145); Troponin-I HS 4 pg/mL (3.0-54.0)
[2023-11-17 03:44] LABS: D-Dimer Quantitative (DVT/PE) 0.53 FEU/ug/m (0.27-0.49)
--- NOTE | 2023-11-17 03:48 | CT_ITS ---
STUDY: CTA CHEST REASON FOR EXAM: Female, 38 years old. elevated dimer RADIATION DOSAGE (If Supplied By Facility): CTDIvol = ( 7.22 ) mGy, DLP = ( 203.12 ) mGycm TECHNIQUE: The examination was performed with the intravenous administration of IV 75mL Isovue-370. Post-processing of the angiographic images was performed, with multiplanar reformation and 3D reconstruction. The protocol utilizes one or more of the following dose reduction techniques: automated exposure control, adjustment of mA and/or kV according to patient size,and/or use of iterative reconstruction technique. COMPARISON: No relevant prior comparison study available FINDINGS: Normal enhancement of the main pulmonary artery and right and left pulmonary arteries. Normal enhancement of the bilateral peripheral pulmonary arteries. There is no demonstrated pulmonary embolism. Normal thoracic aorta and visualized great vessels. There is no demonstrated aortic dissection. Normal heart and pericardium. Normal mediastinum. Normal hilar regions. Normal visualized trachea and bronchi. The lungs are well expanded. Normal pulmonary parenchyma. Normal pleura. Normal chest wall structures. Normal osseous structures. Normal visualized upper abdomen. CT/CTA Chest W/WO Contrast IMPRESSION: Normal CTA chest examination, without a demonstrated pulmonary embolism or arterial dissection. Electronically Signed: Falguni Luis MD at 5:37 EDT ,
[2023-11-17 04:01] LABS: Mucous, Urine 0 SEEN /hpf (<or=2+); Red Blood Cells-Urine 0 SEEN /hpf (0-5)
[2023-11-17 04:02] LABS: Color, Urine Yellow (Yellow); Glucose, Dipstick Normal (Normal); Ketone-Dipstick Negative (Negative); Leukocyte Esterase-Dipstick Negative /ul (Negative); Nitrite-Dipstick Negative (Negative); Occult Blood-Urine 25 /ul (Negative); Protein-Dipstick 15 mg/dl (Negative); Specific Gravity, Urine 1.025 (1.002-1.030); Urine Bilirubin Dipstick Negative (Negative); Urine Clarity Clear (Clear); Urine Urobilinogen Normal (Normal)
[2023-11-17 04:11] LABS: Bacteria 2+ /hpf (None Seen); Internal QC Validated? YES +Cl - CLEAR BKGD; Pregnancy, Urine Negative Negative; Squamous Epithelial Cells - UA 0-5 SEEN /hpf (5-10); White Blood Cells 0 SEEN /hpf (0-5)
--- NOTE | 2023-11-17 04:19 | EDS_ITS ---
HPI History of Present Illness Chief Complaint: Back Narrative Narrative: Patient is a 38-year-old female with past medical history of chronic back pain, migraines, seizures who presented to the emergency department with chief complaint of upper back pain. Patient states that she has chronic back pain and notes that this feels different. Patient states that for the past week she has been having significant back pain and notes that she had been using heating pads all week as well as attempting to do massage on her upper back. States that there was a tool that her friend that is a physical therapist provided her which seemed to help her pain out significantly. States that she had a horse show today and since she was feeling better she decided to ride. States that she did not fall off however after the shows over she noted that she had worsening pain and tightness and this prompted her here further evaluation management. Patient states that she did not take anything for her pain prior to arrival here. Patient feels like her symptoms are different than her chronic back pain. States that she has noted that she has had some lower extremity swelling more so on her right leg than her left but once again denies any history of injuries denies any history of blood clots denies any recent travel history. [facility] Medical History ADHD Easy bruising Seizures Electronic cigarette use History of edema Kidney stones Smoker Migraines Home Medications ?Medication ?Instructions ?Recorded ?Last Taken ?Type lisdexamfetamine 30 mg capsule 30 mg PO DAILY ADHD 02/25/23 03/05/23 History (Mauricio) sulfamethoxazole 800 1 tab PO BID #6 TABLETS 09/24/23 Unknown Rx mg-trimethoprim 160 mg tablet cyclobenzaprine 5 mg tablet 5 mg PO BID PRN muscle spasm #14 11/17/23 Unknown Rx tabs Allergy/AdvReac Type Severity Reaction Status Date / Time shrimp Allergy Mild Swelling Verified 11/17/23 01:15 acetaminophen (From Vicodin) AdvReac Intermediate Nausea Verified 11/17/23 01:15 hydrocodone (From [place]) AdvReac Nausea Verified 11/17/23 01:15 Surgical History History of dilation and curettage History of cystoscopy S/P ERCP S/P laparoscopic cholecystectomy Social History Smoking Status: Current every day smoker tobacco type: e-cigarettes ROS ROS ED ROS Narrative Constitutional: Denies fevers, chills, headaches, lightness, dizziness Eyes: Denies any changes vision double vision blurry vision Cardiovascular: Denies chest pain or palpitations Respiratory: Denies coughing wheezing shortness of breath Abdomen: Denies abdominal pain nausea vomit diarrhea : Denies any urinary symptoms Neurological: Denies numbness, weakness, tingling Musculoskeletal: Complains of back pain as noted above Skin: Denies rashes or lesions EXAM Physical Exam Narrative Exam Narrative: General: Patient lying in bed rest comfortably did not appear to be in acute distress Head: Atraumatic, normocephalic Eyes: PERRL bilateral, EOMI bilateral, no conjunctival injection noted Neck: Soft, supple, trachea midline, no tenderness palpation midline cervical spine no concern for meningitis Cardiovascular: Regular rate and rhythm no murmurs gallops rubs noted Respiratory: Clear to auscultation bilaterally no rales rhonchi or wheezes noted Abdomen: No tenderness palpation Musculoskeletal: No tenderness palpation the midline of the thoracolumbar spine her pain was unable to be reproduced here on exam Extremities: +5/5 strength noted in the bilateral upper and lower extremities, radial pulses +2/4 in the bilateral extremities Neurological: Patient is following commands knew that she is at [facility] year is 2023 Skin: Warm, dry, intact Const Vital Signs: 11/17/23 01:15 11/17/23 03:04 11/17/23 03:06 Temperature 97 F L Temperature Source Temporal Pulse Rate 96 Respiratory Rate 18 Respiratory Effort Normal Respiratory Pattern Normal Blood Pressure 106/73 Blood Pressure Mean 84 Pulse Ox 94 Oxygen Delivery Method Room Air Room Air 11/17/23 05:14 Temperature Temperature Source Pulse Rate 77 Respiratory Rate 17 Respiratory Effort Respiratory Pattern Blood Pressure Blood Pressure Mean Pulse Ox Oxygen Delivery Method MDM MDM MDM Narrative Medical decision making narrative: Patient is a 38-year-old female who presented to the emergency department with a chief complaint of back pain. Patient will have a workup performed here on the differential diagnosis includes but not limited to musculoskeletal strain, PE, pneumonia, ACS. Once workup is obtained reviewed she will be reevaluated. Patient be given IV fluids and Toradol. On reevaluation she stated her pain is significantly improved. Patient CBC reviewed and showed a white blood count is normal at 9.5, hemoglobin stable 12.3, plate count normal at 290, sodium normal 140, potassium 3.5, creatinine normal at 0.60. Patient's troponin normal at 4, EKG reviewed and independently interpreted by myself which showed sinus rhythm with a rate of 69 bpm, urinalysis showed negative nitrites, leukocyte esterase are negative and 2+ bacteria she does not have any urinary symptoms however this was sent for culture will not treat. Patient's x-ray of her chest reviewed and showed no acute cardiopulmonary processes. Patient CT angiography of the chest showed no acute evidence of pulmonary embolism or arterial dissection. Discussed this result with the patient she would like to go home this point time. She will be given a prescription for cyclobenzaprine and was advised to not operate anything under the influence of these as they can make you sleepy. She is advised to return with worsening symptoms or other concerns. She was encouraged to rotate Tylenol and ibuprofen [id number]. All question concerns answered she was discharged home in stable condition Lab Data Labs: Laboratory Results - last 24 hr 11/17/23 11/17/23 03:06 03:57 WBC 9.5 RBC 4.05 L Hgb 12.3 Hct 36.8 L MCV 90.9 MCH 30.4 MCHC 33.4 RDW Std Deviation 40.1 RDW Coeff of Dimas 11.9 Plt Count 290 MPV 8.8 Immature Gran % (Auto) 0.300 Neut % (Auto) 46.9 L Lymph % (Auto) 41.1 H [place] % (Auto) 9.5 Eos % (Auto) 1.7 Baso % (Auto) 0.5 Absolute Neuts (auto) 4.4 Absolute Lymphs (auto) 3.90 Nucleated RBC % 0 D-Dimer Quant (PE/DVT) 0.53 H* Sodium 140 Potassium 3.5 Chloride 107 Carbon Dioxide 29.0 Anion Gap 4 L BUN 10 Creatinine 0.60 Estim Creat Clear Calc 124.84 Est GFR (MDRD) Af Amer 145 Est GFR (MDRD) Non-Af 120 BUN/Creatinine Ratio 16.7 Glucose 84 Calcium 9.0 Troponin I High Sens 4 Urine Color Yellow Urine Clarity Clear Urine pH 6.0 Ur Specific Frederic 1.025 Urine Protein 15 H Urine Glucose (UA) Normal Urine Ketones Negative Urine Occult Blood 25 H Urine Nitrite Negative Urine Bilirubin Negative Urine Urobilinogen Normal Ur Leukocyte Esterase Negative Urine RBC 0 SEEN Urine WBC 0 SEEN Ur Squamous Epith Cells 0-5 SEEN Urine Bacteria 2+ Urine Mucus 0 SEEN Urine Test Negative Radiography Diagnostic Testing: Clinical Impression(s) from Imaging Studies Chest X-Ray 11/17/23 03:20 IMPRESSION: No radiographic evidence of acute cardiopulmonary disease. Electronically Signed: Falguni Luis MD at 4:51 EDT Reading Location ID and State: [facility] / [place] Tel , Service support , Chest CTA 11/17/23 03:48 IMPRESSION: Normal CTA chest examination, without a demonstrated pulmonary embolism or arterial dissection. Electronically Signed: Falguni Luis MD at 5:37 EDT Reading Location ID and State: [facility] / [place] Tel , Service support , Discharge Plan Triage Chief Complaint: Back ED Provider: Rodney Alanis Dx/Rx/DC Orders Clinical Impression: Musculoskeletal strain, Back pain Prescriptions: New cyclobenzaprine 5 mg tablet 5 mg PO BID PRN (Reason: muscle spasm) Qty: 14 0RF No Action lisdexamfetamine [Vyvanse] 30 mg capsule 30 mg PO DAILY sulfamethoxazole-trimethoprim 800-160 mg tablet 1 tab PO BID Qty: 6 0RF Primary Care Provider: Yancy Barcenas Referrals: Yancy Bacrenas, RESIDENCY DIRECTOR-C [Primary Care Provider] - Activity Restrictions/Additional Instructions: Follow-up with your primary care physician outpatient setting. Use the muscle relaxers as prescribed and do not operate anything under the influence of these. Return with worsening symptoms or any other concerns. Rotate Tylenol and ibuprofen [id number] as we discussed. Print Language: Tanzanian Disposition Disposition: Home, Self Care
[2023-11-17 05:14] VITALS: PULSE 77; RESP 17
[2023-11-17 06:00] VITALS: BP 97/56; PULSE 78; RESP 18; TEMP 36.8; O2SAT 99
== END 2023-11-17 06:00 | disposition home or self-care (01) ==
PROVIDERS: Emergency Provider Emergency Medicine; PCP Nurse Practitioner Family; Visit Provider Emergency Medicine
DX: S29.012A Strain of muscle and tendon of back wall of thorax, initial encounter (principal); F17.290 Nicotine dependence, other tobacco product, uncomplicated; Z23 Encounter for immunization; X58.XXXA Exposure to other specified factors, initial encounter
CPT/HCPCS: 71046; 71275; 80048; 81001; 81025; 84484; 85025; 85379; 87086; 87088; 90471; 93005; 96361; 96374; 96376; 99285; J7030; Q9967; A4216

== ENCOUNTER → 2023-11-21 | Outpatient (CLI) | payer MEDICAID, SELFPAY ==
[2023-11-21 16:00] LABS: Absolute Lymphocyte Count 2.63 X10^3/uL (0.83-4.51); Absolute Neutrophil Count 5.5 X10^3/uL (2.0-7.7); Basophil# 0.04 X10^3/uL; Basophil% 0.4 % (0-1); Eosinophil# 0.06 X10^3/uL; Eosinophils% 0.7 % (0-5); Hematocrit 40.7 % (37-47); Hemoglobin 13.6 g/dL (12.0-15.0); Lymphocyte # 2.63 X10^3/ul (0.83-4.51); Lymphocyte % 29.6 % (19-41); Mean Corp Hgb Conc 33.4 g/dL (32-36); Mean Corpuscular Hgb 30.3 pg (27.0-32.0); Mean Corpuscular Volume 90.6 fL (81-99); Mean Platelet Vol. 9.4 fl (6.2-12.0); Monocyte# 0.68 X10^3/uL; Monocyte% 7.6 % (0-10); NRBC Flagged by Analyzer 0 % (0-5); Neutrophil # 5.45 X10^3/uL (2.7-7.7); Neutrophil % 61.4 % (47-70); Platelet Count 358 K/mm3 (150-450); RBC Distribution Width CV 11.9 % (11.6-14.6); RBC Distribution Width SD 39.4 fl (35.1-43.9); Red Blood Count 4.49 M/mm3 (4.2-5.4); White Blood Count 8.9 K/mm3 (4.4-11.0)
[2023-11-21 16:35] LABS: AST(SGOT) 69 U/L (15-37); Alanine Aminotransfer ALT/SGPT 97 U/L (13-56); Albumin, Serum 3.9 g/dL (3.2-5.0); Alkaline Phosphatase 84 U/L (45-117); Anion Gap 6 (5-15); BUN 8 mg/dL (7-18); Calcium,Total 9.1 mg/dL (8.5-10.1); Chloride 103 mmol/L (98-107); Creatinine, Serum 0.62 mg/dL (0.55-1.02); EST Glomerular Filtration Rate 116 mL/min (>60); Est Glom Filt Rate - Afr Amer 141 mL/min (>60); Globulin 3.8 g/dL (2.2-4.2); Glucose 97 mg/dL (74-106); Lipase 22 U/L (13-75); Potassium 3.4 mmol/L (3.5-5.1); Protein, Total 7.7 g/dL (6.4-8.2); Sodium Level 135 mmol/L (136-145)
== END | disposition home or self-care (01) ==
LOC: LAB 14:28
PROVIDERS: PCP Nurse Practitioner Family; Referring Provider Internal Medicine Gastroenterology; Visit Provider Internal Medicine Gastroenterology
DX: K80.50 Calculus of bile duct without cholangitis or cholecystitis without obstruction (principal)
CPT/HCPCS: 36415; 80053; 83690; 85025

== ENCOUNTER → 2023-11-22 | Outpatient (CLI) | payer MEDICAID, SELFPAY ==
--- NOTE | 2023-11-22 10:23 | US_ITS ---
STUDY: ABDOMINAL ULTRASOUND - RIGHT UPPER QUADRANT REASON FOR VISIT: Female, 38 years old severe RUQ pain, hx of choledocholithiasis TECHNIQUE: Ultrasound evaluation of the right upper quadrant was performed with real-time and static [place]o-scale imaging. TECHNICAL QUALITY: Adequate. COMPARISON: Comparison made with prior study dated March 08, 2023. FINDINGS: Liver: The liver measures 16 cm. There is normal echogenicity of the liver. The bile ducts are within normal limits. There is hepatic color flow. The direction of portal flow is hepatopetal. 2 cysts are seen in the left lobe of the liver. The larger measures 1.6 cm x 1.6 cm x 1.6 cm. This is unchanged. Gallbladder: The patient is status post cholecystectomy. Common Bile Duct (C.B.D.): The common bile duct measures 4 mm. Pancreas: Normal size of the head, body and tail of the pancreas. There is normal echogenicity of the pancreas. There is no demonstrated pancreatic mass or cyst. Right Kidney: Normal size of the right kidney. The right kidney measures 12.5 cm x 6 cm x 5.1 cm. Normal renal cortex. The right cortex measures 1.5 cm. There is no demonstrated renal mass or cyst. There is no right hydronephrosis. US/Abdomen Limited IMPRESSION: Status post cholecystectomy. Stable left renal cysts. Electronically Signed: Daniel Bernstein MD at 11:11 EDT ,
== END | disposition home or self-care (01) ==
LOC: US 10:17
PROVIDERS: PCP Nurse Practitioner Family
DX: K80.50 Calculus of bile duct without cholangitis or cholecystitis without obstruction (principal)
CPT/HCPCS: 76705

== ENCOUNTER 2024-03-29 00:41 | Emergency (ER) | payer MEDICAID, SELFPAY ==
[2024-03-29] VITALS (11 sets, daily range): BP systolic 98–104; BP diastolic 66–70; PULSE 76–88; RESP 12–28; TEMP 36.8; O2SAT 95–100; BMI 24.9
--- NOTE | 2024-03-29 01:22 | EKG12_ITS ---
Test Reason : CP Blood Pressure : */* mmHG Vent. Rate : 80 BPM Atrial Rate : 80 BPM P-R Int : 166 ms QRS Dur : 96 ms QT Int : 358 ms P-R-T Axes : 71 64 65 degrees QTcB Int : 412 ms Normal sinus rhythm Normal ECG Confirmed by SCARLETT CARBAJAL, HENRY ([id number]), brands editor SONIYA MUKHERJEE ([id number]) on 03/31/2024 10:20:23 AM Referred By: JL Confirmed By: HENRY PANTOJA MD
[2024-03-29 01:30] LABS: Absolute Neutrophil Count 7.7 X10^3/uL (2.0-7.7); Basophil# 0.08 X10^3/uL; Basophil% 0.6 % (0-1); Eosinophil# 0.66 X10^3/uL; Eosinophils% 5.1 % (0-5); Hematocrit 38.3 % (37-47); Hemoglobin 12.9 g/dL (12.0-15.0); Lymphocyte % 25.5 % (19-41); Mean Corp Hgb Conc 33.7 g/dL (32-36); Mean Corpuscular Hgb 30.7 pg (27.0-32.0); Mean Corpuscular Volume 91.2 fL (81-99); Mean Platelet Vol. 9.5 fl (6.2-12.0); Monocyte# 1.15 X10^3/uL; Monocyte% 8.9 % (0-10); NRBC Flagged by Analyzer 0 % (0-5); Neutrophil % 59.7 % (47-70); Platelet Count 330 K/mm3 (150-450); RBC Distribution Width CV 11.9 % (11.6-14.6); RBC Distribution Width SD 39.6 fl (35.1-43.9); White Blood Count 12.9 K/mm3 (4.4-11.0)
--- NOTE | 2024-03-29 01:32 | RAD_ITS ---
PROCEDURE: PA and lateral chest radiographs, two views REASON FOR EXAM: Chest pain TECHNIQUE: PA and lateral chest radiographs were obtained. COMPARISON: 11/17/2023 FINDINGS: The cardiomediastinal silhouette is stable. Bones of the thorax appear intact. Hazy opacities projecting over the lower lungs on the PA view likely correspond to overlying breast tissue, with no focal airspace consolidation confirmed on the lateral projection. No sizable pleural effusion. Nipple shadows project over the lower lungs on the PA view. RAD/Chest PA and Lateral IMPRESSION: No acute cardiopulmonary process is demonstrated. Reading Location: [facility]
[2024-03-29 01:46] LABS: D-Dimer Quantitative (DVT/PE) 0.28 FEU/ug/m (0.27-0.49)
[2024-03-29 01:52] LABS: Anion Gap 6 (5-15); BUN 10 mg/dL (7-18); BUN/Creat Ratio 15.7 RATIO (10-20); Chloride 106 mmol/L (98-107); Creatinine, Serum 0.64 mg/dL (0.55-1.02); EST Glomerular Filtration Rate 111 mL/min (>60); Est Glom Filt Rate - Afr Amer 135 mL/min (>60); Estimated Creatinine Clearance 117.04 ml/min; Glucose 89 mg/dL (74-106); Magnesium 2.1 mg/dL (1.6-2.6); Potassium 3.8 mmol/L (3.5-5.1); Sodium Level 140 mmol/L (136-145); Troponin-I HS 6 pg/mL (3.0-54.0)
--- NOTE | 2024-03-29 02:03 | EX.ED.DYSGE1 ---
HPI History of Present Illness Chief Complaint: Chest Pain Informant: patient and family Narrative Narrative: Patient is a 38-year-old female with past medical history of migraine headache ADHD and previous choledocholithiasis requiring cholecystectomy. She states that today she felt some mild right sided chest discomfort and then after wrestling with her daughter it acutely worsened. She states that there is no associated nausea vomiting or diaphoresis. She denies any shortness of breath but states that the pain does worsen with deep inspiration. She denies any recent surgery travel or history of DVT/PE but does report a family history of clots. She states that as symptoms worsen she is concerned this could be cardiac in nature and therefore comes in for evaluation [facility] Medical History Chronic back pain ADHD Easy bruising Seizures Electronic cigarette use History of edema Kidney stones Smoker Migraines Home Medications ?Medication ?Instructions ?Recorded ?Last Taken ?Type lisdexamfetamine 30 mg capsule 30 mg PO DAILY ADHD 02/25/23 03/05/23 History (Mauricio) cyclobenzaprine 5 mg tablet 5 mg PO BID PRN muscle spasm #14 11/17/23 Unknown Rx tabs methocarbamol 500 mg tablet See Rx Instructions .Route 03/29/24 Unknown Rx .COMPLEX #56 tabs Allergy/AdvReac Type Severity Reaction Status Date / Time shrimp Allergy Mild Swelling Verified 03/29/24 00:41 acetaminophen (From Vicodin) AdvReac Intermediate Nausea Verified 03/29/24 00:41 hydrocodone (From [place]) AdvReac Nausea Verified 03/29/24 00:41 Surgical History History of dilation and curettage History of cystoscopy S/P ERCP S/P laparoscopic cholecystectomy Social History Smoking Status: Heavy Smoker (>10/day) ROS ROS ED Constitutional Constitutional ED: Denies chills or fever(s) Eyes Eyes: Denies blurry vision or change in vision ENT ENT ED: Denies sore throat Cardiovascular Cardiovascular: Reports chest pain; Denies palpitations or racing heartbeat Respiratory/Chest Respiratory/Chest: Denies cough or dyspnea Gastrointestinal Gastrointestinal: Denies abdominal pain, diarrhea, nausea or vomiting Genitourinary Genitourinary ED: Denies dysuria Musculoskeletal Musculoskeletal: Denies back pain Integumentary Denies rash Neurologic Neurologic: Denies headache(s) Hematologic/Lymphatic Hematologic/Lymphatic: Denies easy bleeding or easy bruising EXAM Physical Exam Const Vital Signs: 03/29/24 00:41 03/29/24 00:42 Temperature 98.2 F Temperature Source Oral Pulse Rate 76 Respiratory Rate 12 Respiratory Effort Normal Blood Pressure 104/68 Blood Pressure Mean 80 Pulse Ox 100 Oxygen Delivery Method Room Air Positive well nourished and well developed General Appearance ED: well developed; Negative for pallor HEENT HEENT Narrative: Normocephalic atraumatic Eyes PERRL and EOMs intact bilaterally General Eye ED: Negative for scleral icterus Neck supple and no JVD Neck Narrative: No nuchal rigidity or meningeal signs Chest Wall Chest Narrative: There is pain with palpation along the right anterior chest wall rib regions 4-7 without bony deformity or crepitance. Patient does report this is the same pain she has been experiencing Resp normal respiratory effort and clear to auscultation bilaterally Cardio regular rate and regular rhythm Rate: other Other Details: Heart is regular rate and rhythm without murmurs rubs or gallops Radial and carotid pulses are equal and symmetric GI normal to inspection, nondistended, normoactive bowel sounds, non-tender, non-distended and no masses GI Narrative: No voluntary guarding or rigidity or pulsatile mass Auscultation: normoactive bowel sounds Palpation: soft Extremity normal to inspection Extremity Narrative: No asymmetric edema no pitting edema negative Homans' sign bilaterally Neuro oriented x3, CN's II-XII intact bilaterally and no sensory deficits noted Sensorium / Orientation: alert Motor Exam: strength 5/5 throughout Psych mental status grossly normal Skin no rashes or lesions noted and no wounds Skin Narrative: No overlying soft tissue skin changes to suggest trauma or infection General Skin Exam: Negative for jaundice or pallor MDM MDM MDM Narrative Medical decision making narrative: Patient arrived to ER with stable vitals. Her report of chest pain is atypical in nature as it is sharp and stabbing without associated nausea vomiting or diaphoresis. She is low risk for cardiovascular disease as well. As she states that the pain does worsen with inspiration there is also potential for a pulmonary embolus. Therefore at this time in order to rule out acute coronary syndrome or cardiac dysrhythmia versus pneumonia pneumothorax or PE I did elect to perform basic laboratory studies with a EKG chest x-ray and D-dimer. EKG is sinus rhythm without ectopy or ischemic changes and this correlates with her normal troponin going against ACS. Chest x-ray shows no pneumonia or pneumothorax and D-dimer is normal going against PE or dissection. Therefore at this time as the chest pain is reproducible in nature and her workup is negative this is most likely chest wall pain and should be given Toradol and Norflex and is otherwise safe for discharge History & Record Review Discussion w/independent historian: Patient and Family Lab Data Attestation: I reviewed the patient's lab results. Labs: Laboratory Results - last 24 hr 03/29/24 01:12 WBC 12.9 H RBC 4.20 Hgb 12.9 Hct 38.3 MCV 91.2 MCH 30.7 MCHC 33.7 RDW Std Deviation 39.6 RDW Coeff of [place] 11.9 Plt Count 330 MPV 9.5 Immature Gran % (Auto) 0.200 Neut % (Auto) 59.7 Lymph % (Auto) 25.5 [place] % (Auto) 8.9 Eos % (Auto) 5.1 H Baso % (Auto) 0.6 Absolute Neuts (auto) 7.7 Absolute Lymphs (auto) 3.30 Nucleated RBC % 0 D-Dimer Quant (PE/DVT) 0.28 Sodium 140 Potassium 3.8 Chloride 106 Carbon Dioxide 28.0 Anion Gap 6 BUN 10 Creatinine 0.64 Estim Creat Clear Calc 117.04 Est GFR (MDRD) Af Amer 135 Est GFR (MDRD) Non-Af 111 BUN/Creatinine Ratio 15.7 Glucose 89 Calcium 9.0 Magnesium 2.1 Troponin I High Sens 6 Radiography Diagnostic Testing: Clinical Impression(s) from Imaging Studies Chest X-Ray 03/29/24 01:32 IMPRESSION: No acute cardiopulmonary process is demonstrated. Reading Location: [facility] Chest x-ray as interpreted by the emergency medicine physician reveals no acute infiltrate pneumothorax or pleural effusion Discharge Plan Triage Chief Complaint: Chest Pain ED Provider: Filemon Bonilla Dx/Rx/DC Orders Clinical Impression: Acute nonspecific chest pain with low risk of coronary artery disease, ADHD, History of migraine headaches Instructions: ED Chest Pain, Uncertain Cause Prescriptions: New methocarbamol 500 mg tablet See Rx Instructions .ROUTE .COMPLEX Qty: 56 0RF Rx Instructions: 1 to 2 pills by mouth 4 times daily as needed muscle pain/spasm No Action lisdexamfetamine [Vyvanse] 30 mg capsule 30 mg PO DAILY cyclobenzaprine 5 mg tablet 5 mg PO BID PRN (Reason: muscle spasm) Qty: 14 0RF Primary Care Provider: Yancy Barcenas Referrals: Yancy Barcenas, PRODUCT SAFETY EXPERT-C [Primary Care Provider] - Print Language: Frisian Disposition Disposition: Home, Self Care
[2024-03-29] MEDS: Ketorolac 30 MG/ML Syringe IV (02:58)
[2024-03-29] MEDS: Orphenadrine 100 MG Tablet PO (03:06)
== END 2024-03-29 03:10 | disposition home or self-care (01) ==
PROVIDERS: Emergency Provider Emergency Medicine; PCP Nurse Practitioner Family; Visit Provider Emergency Medicine
DX: R07.89 Other chest pain (principal); F90.9 Attention-deficit hyperactivity disorder, unspecified type; F17.200 Nicotine dependence, unspecified, uncomplicated; Z79.899 Other long term (current) drug therapy
CPT/HCPCS: 71046; 80048; 83735; 84484; 85025; 85379; 93005; 96374; 99283; A4216